=== PATIENT | female | born 1950 | race Caucasian/White ===

== ENCOUNTER 2019-07-01 12:12 | Emergency (ER) | payer MEDICARE, SELFPAY ==
[2019-07-01] VITALS (38 sets, daily range): BP systolic 162–201; BP diastolic 57–94; PULSE 59–79; RESP 13–26; TEMP 36.5; O2SAT 96–100
--- NOTE | ~2019-07-01 | XR_ITS ---
EXAMINATION: XR chest 2V DATE: 07/01/2019 12:45 INDICATION: Shortness of breath. TECHNIQUE: Frontal and lateral views of the chest were obtained. COMPARISON: Chest single view 02/20/2019, chest CT 11/30/2018 FINDINGS: There is a moderate-sized right pleural effusion. There is a small left pleural effusion. T here are airspace opacities in the perihilar regions and at the lung bases. No pneumothorax. Cardiome david is noted. IMPRESSION: 1. Airspace opacities in the perihilar regions and at the lung bases with improvement on the left, li dyaln atelectasis. Pneumonia cannot be excluded. 2. Moderate-sized right pleural effusion and small left pleural effusion with improvement on the left . 3. Cardiomegaly. Reviewed, dictated and finalized at location A. IMPRESSION: 1. Airspace opacities in the perihilar regions and at the lung bases with impro vement on the left, likely atelectasis. Pneumonia cannot be excluded. 2. Moderate-sized right pleural effusion and small left pleural effusion with i mprovement on the left. 3. Cardiomegaly.
--- NOTE | 2019-07-01 12:26 | ECG_ITS ---
Measurements Intervals [place] Rate: 66 P: 16 [place]: 160 QRS: -23 QRSD: 102 T: 55 QT: 397 QTc: 417 Interpretive Statements SINUS RHYTHM ANTEROSEPTAL INFARCT, AGE INDETERMINATE BORDERLINE ST ABNORMALITY- LATERAL LEADS ABNORMAL ECG Electronically Signed On 07-01-2019 13:22:03 CDT by Tahir Alexander D.O.
[2019-07-01 12:51] LABS: Basophils Percent Auto 0.3 % (0.2-1.2); Eosinophils Absolute Auto 0.4 K/mm3 (0-0.3); Eosinophils Percent Auto 4.2 % (0-4.4); Hematocrit 24.7 % (37.0-47.0); Hemoglobin 7.8 g/dL (12.0-15.0); Immature Granulocyte Absolute 0.03 K/mm3 (0.00-0.031); Immature Granulocyte Percent A 0.3 % (0-0.5); Lymphocytes Absolute Auto 0.87 K/mm3 (0.9-3.2); Mean Corpuscular HGB Conc 31.6 g/dl (32-36); Mean Corpuscular Hemoglobin 30.7 pg (26-34); Mean Corpuscular Volume 97.2 fl (80-100); Mean Platelet Volume 8.7 fl (7.4-10.4); Monocytes Absolute Auto 0.7 K/mm3 (0.1-0.6); Monocytes Percent Auto 8.1 % (2.6-8.5); Neutrophils Absolute Auto 6.7 K/mm3 (1.3-6.7); Neutrophils Percent Auto 77.1 % (45.5-73.1); Platelet Count Result 250 k/mm3 (150-375); Red Blood Count 2.54 M/mm3 (4.2-5.4); Red Cell Distribution Width 14.7 % (11.5-14.5); White Blood Count 8.7 K/mm3 (4.5-10.0)
[2019-07-01 13:03] LABS: Blood Urea Nitrogen 77 mg/dL (7-17); Carbon Dioxide 18 mmol/L (22-30); Chloride 111 mmol/L (98-107); Estimated CRCL calculation 13 ml/min; Estimated Glomerular Filt Rate 10; Glucose 95 mg/dL (65-105); Potassium 5.5 mmol/L (3.4-5.0); Sodium 137 mmol/L (137-145)
[2019-07-01 13:04] LABS: Prothrombin Time 13.2 Seconds (11.1-14.7)
[2019-07-01 13:05] LABS: Partial Thromboplastin Time 33.2 SECONDS (22.3-36.8)
[2019-07-01 13:15] LABS: NT Pro B Type Natriuretic Pept 7500 PG/ML (5-100); Troponin I < 0.012 ng/mL (0.000-0.034)
--- NOTE | 2019-07-01 14:32 | ED.SOB ---
HPI - SOB/Dyspnea General Chief Complaint: Shortness of Breath/Dyspnea Stated Complaint: SOB Time Seen by Provider: 07/01/19 12:17 History of Present Illness HPI Narrative: Patient is a 68-year-old female who presents ER with progressive shortness of breath. Worsening over the last couple weeks. Associated with a 30 pound weight gain. Patient has CKD and sees Dr. Chowdary. They have been modifying her home medications to decrease potassium buildup. Additionally patient has history of CHF and also has history of oxygen dependent COPD and wears 3 L at baseline. She has had no increase in her oxygen necessity. No orthopnea/wheezing/fever/productive cough. No chest pain or chest pressure. Related Data Home Medications Medication Instructions Recorded Confirmed Lantus U-100 Insulin 8 unit SUBCUT HS 02/20/19 05/16/19 albuterol sulfate 2 inh INHALATION QID PRN 02/20/19 05/16/19 aspirin 325 mg PO DAILY 02/20/19 05/16/19 atorvastatin 20 mg PO HS 02/20/19 05/16/19 carvedilol 25 mg PO BID 02/20/19 05/16/19 cholecalciferol (vitamin D3) 2,000 unit PO DAILY 02/20/19 05/16/19 ferrous sulfate 325 mg PO DAILY 02/20/19 05/16/19 folic acid 1 mg PO DAILY 02/20/19 05/16/19 acetaminophen 325 mg capsule 325 mg PO Q6H PRN 05/16/19 05/16/19 ciprofloxacin HCl 07/01/19 diltiazem HCl [Cartia XT] PO 07/01/19 fluticasone propionate INTRANASAL 07/01/19 olopatadine 07/01/19 ondansetron HCl 07/01/19 sevelamer carbonate [Renvela] 07/01/19 Allergies Allergy/AdvReac Type Severity Reaction Status Date / Time hydromorphone Allergy Unknown Unknown Verified 07/01/19 12:25 meperidine Allergy Unknown Nausea Verified 07/01/19 12:25 Review of Systems Review of Systems: All systems reviewed & are unremarkable except as noted in HPI and below Constitutional: Constitutional: Denies chills, Reports fatigue, Denies fever(s) and Reports weakness ENT: Denies nasal congestion and Denies sore throat Cardiovascular: Cardiovascular: Denies chest pain, Denies rapid heart rate and Denies radiating jaw, neck or arm pain Respiratory: Respiratory: Denies chest congestion, Denies cough, Reports dyspnea and Denies wheezing Gastrointestinal: Gastrointestinal: Denies abdominal pain, Denies nausea and Denies vomiting [facility] Past Medical History Medical History (Updated 07/01/19 @ 16:41 by Saturnino Juarez MD) Arthritis CHF (congestive heart failure) Diabetes mellitus DVT (deep venous thrombosis) Fracture HLD (hyperlipidemia) HTN (hypertension) Hypoglycemic coma IBS (irritable bowel syndrome) Kidney stone On home oxygen therapy Peripheral neuropathy Pulmonary embolism Rectal polyp Renal disease Surgical History Surgical History H/O: hysterectomy History of History of cataract surgery Social History Social History Smoking status: Never smoker Alcohol intake: never Substance use: never Substance use type: does not use Gender identity (if verbalized by the patient): Female Spiritual care concerns: No Exam Narrative: Exam Narrative: GENERAL: Chronically ill-appearing, obese, and in no acute distress. HEAD: Normocephalic, atraumatic. ENT: Nares clear, no rhinorrhea or epistaxis. Mucous membranes moist. NECK: Supple. CHEST: Clear to auscultation. No respiratory distress. HEART: Regular rate and rhythm. Normal peripheral pulses. ABDOMEN: Soft, nontender, nondistended. EXTREMITIES: Normal range of motion. No edema. Chronic lower extremity venous stasis changes. SKIN: Warm, dry, no rash. NEURO: Alert and oriented x3. PSYCH: Normal mood and affect. Course Course Emergency Course: Patient has been ambulatory without hypoxia while wearing her home oxygen. BNP appears elevated but not as elevated as it has been in the past. There is no pulmonary edema on chest x-ray. Patient's renal function seems to be worsening and her potassium is i
--- NOTE | 2019-07-01 15:02 | PC.NURSE ---
Pt did walk test with O2 at 3L/n.c and O2 went from 99% to 93%. MD Juarez aware
[2019-07-01] MEDS: SODIUM POLYSTYRENE SULFONONATE 15 GM/60 ML BTL PO (16:42)
--- NOTE | 2019-07-01 20:56 | PC.NURSE ---
S/[facility] Patient Access....bed available...Rm 216 @ [facility]
--- NOTE | 2019-07-01 23:40 | PC.NURSE ---
EMS arrived to transfer Pt to [facility], thorough report was given at 2335.
== END 2019-07-01 21:50 | disposition short-term general hospital (02) ==
PROVIDERS: Emergency Provider Emergency Medicine
DX: N17.9 Acute kidney failure, unspecified (principal); E11.22 Type 2 diabetes mellitus with diabetic chronic kidney disease; I13.0 Hypertensive heart and chronic kidney disease with heart failure and stage 1 through stage 4 chronic kidney disease, or unspecified chronic kidney disease; N18.9 Chronic kidney disease, unspecified; M19.90 Unspecified osteoarthritis, unspecified site; E78.5 Hyperlipidemia, unspecified; K58.9 Irritable bowel syndrome, unspecified; Z99.81 Dependence on supplemental oxygen; E11.42 Type 2 diabetes mellitus with diabetic polyneuropathy; Z86.711 Personal history of pulmonary embolism; Z86.718 Personal history of other venous thrombosis and embolism; Z87.19 Personal history of other diseases of the digestive system; Z98.49 Cataract extraction status, unspecified eye; R91.8 Other nonspecific abnormal finding of lung field; I51.7 Cardiomegaly; Z79.4 Long term (current) use of insulin; Z79.82 Long term (current) use of aspirin
CPT/HCPCS: 36415; 71046; 80048; 83880; 84484; 85025; 85610; 85730; 93005; 99285; A9270

== ENCOUNTER 2020-02-14 13:35 | Outpatient (CLI) | payer MEDICARE, SELFPAY ==
--- NOTE | 2020-02-14 14:06 | ECHO_ITS ---
Patient Info Name: Pennie Buckley Age: 69 years : 1950 Gender: Female Ht: 63 in Wt: 236 lbs BSA: 2.24 m2 HR: 66 bpm BP: 149 / 77 mmHg Technical Quality: Good Exam Date: 02/14/2020 2:46 PM Exam Location: [facility] Patient Status: Outpatient Admit Date: 02/14/2020 Staff Ordering Physician: Tahir Alexander DO Magnetic Prospector: Manjinder Smyth RDCS, RT Attending Provider: Tahir Alexander DO Referring Physician: Benjamin DANG; Exam Type: CA echo doppler color flow Study Info Indications I50.9 - Heart failure, unspecified Complete two-dimensional, color flow and Doppler transthoracic echocardiogram is performed. Summary 1. Complete two-dimensional, color flow and Doppler transthoracic echocardiogram is performed. 2. Left ventricular chamber dimension is normal. 3. Left ventricular systolic function is normal, estimated at 50-55%. 4. There is moderately increased left ventricular wall thickness. 5. The left ventricular diastolic function is grade I diastolic dysfunction. 6. E/e' 14 is mildly elevated. 7. Left atrial chamber dimension is moderately enlarged. 8. There is mild aortic valve sclerosis. 9. The mitral valve has moderately calcified annulus. 10. Calcification of chordae tendinae of posterior mitral valve. 11. There is small circumferential pericardial effusion. Left Ventricle E/e' 14 is mildly elevated. Left ventricular chamber dimension is normal. Left ventricular systolic function is normal, estimated at 50-55%. There is moderately increased left ventricular wall thickness. The left ventricular diastolic function is grade I diastolic dysfunction. Right Ventricle Right ventricular chamber dimension is normal. Right ventricular systolic function is normal. Left Atria Left atrial chamber dimension is moderately enlarged. Right Atria Right atrial chamber dimension is normal. Aortic Valve The aortic valve is trileaflet. There is mild aortic valve sclerosis. There is no aortic valve stenosis. There is no aortic valve regurgitation. Pulmonic Valve There is no pulmonic regurgitation. Mitral Valve The mitral valve has moderately calcified annulus. Calcification of chordae tendinae of posterior mitral valve. There is no mitral valve stenosis. There is no mitral valve regurgitation. Tricuspid Valve There is no tricuspid valve regurgitation. Pericardium/Pleural There is small circumferential pericardial effusion. Inferior Vena Cava Normal inferior vena cava with >50% collapse upon inspiration consistent with normal right atrial pressure, 5 mmHg. Aorta The aortic root size at the sinus of Valsalva is normal. Left Ventricular Outflow Tract Name Value Normal LVOT 2D LVOT Diameter 2.1 cm LVOT Doppler LVOT Peak Gradient 5 mmHg LVOT Mean Gradient 2 mmHg LVOT VTI 23 cm LVOT VTI/AV VTI Ratio 0.7 LVOT Stroke Volume 82 ml Mitral Valve Name
== END 2020-02-14 13:36 | disposition home or self-care (01) ==
PROVIDERS: PCP Nurse Practitioner Family; Visit Provider Internal Medicine Cardiovascular Disease
DX: I50.9 Heart failure, unspecified (principal); I51.7 Cardiomegaly; I35.8 Other nonrheumatic aortic valve disorders; I31.3 Pericardial effusion (noninflammatory)
CPT/HCPCS: 93306

== ENCOUNTER → 2020-10-16 13:30 | Outpatient (CLI) | payer MEDICARE, SELFPAY ==
--- NOTE | ~2020-10-16 | MM_ITS ---
EXAMINATION: MM screening [facility] BI w carlos HISTORY: Screening TECHNIQUE: Craniocaudal and mediolateral oblique 3-D tomosynthesis images were obtained and synthetic 2-D images were generated. CAD analysis was submitted and interpreted. COMPARISON: Comparison to multiple prior studies sequentially, with oldest reviewed study dated 02/04. BREAST PARENCHYMAL COMPOSITION: There are scattered areas of fibroglandular density. FINDINGS: There is no evidence of suspicious mass, calcification, or architectural distortion to sugg est malignancy in either breast. There has been no suspicious interval change. IMPRESSION: 1. No mammographic evidence of malignancy. 2. Recommend routine screening mammography in one year. BI-RADS Category 1: Negative Reviewed, dictated and finalized at location A.
== END ==
PROVIDERS: PCP Nurse Practitioner Family; Visit Provider Nurse Practitioner Family
DX: Z12.31 Encounter for screening mammogram for malignant neoplasm of breast (principal)
CPT/HCPCS: 77063; 77067

== ENCOUNTER 2021-09-17 11:45 | Outpatient (CLI) | payer MEDICARE, SELFPAY ==
--- NOTE | 2021-09-17 12:01 | ECHO_ITS ---
Patient Info Name: Pennie Buckley Age: 70 years : 1950 Gender: Female Ht: 63 in Wt: 240 lbs BSA: 2.26 m2 HR: 76 bpm BP: 158 / 82 mmHg Technical Quality: Good Exam Date: 09/17/2021 12:29 PM Exam Location: [facility] Patient Status: Outpatient Admit Date: 09/17/2021 Staff Ordering Physician: Tahir Alexander DO Invasive Cardiologist: Linda Dick RDCS Attending Provider: Tahir Alexander DO Referring Physician: Benjamin DANG; Exam Type: CA echo doppler color flow Study Info Indications I50.9 - Heart failure, unspecified Complete two-dimensional, color flow and Doppler transthoracic echocardiogram is performed. Summary 1. Complete two-dimensional, color flow and Doppler transthoracic echocardiogram is performed. 2. Left ventricular chamber dimension is normal. 3. Left ventricular systolic function is normal, estimated at 55-60%. 4. There is mildly increased left ventricular wall thickness. 5. The left ventricular diastolic function is grade I diastolic dysfunction. 6. E/e' 22 is elevated. 7. Global longitudinal strain is abnormal at -15.3%. 8. Left atrial chamber dimension is severely enlarged. 9. Right atrial chamber dimension is mildly enlarged. 10. The mitral valve has moderately calcified annulus. 11. There is trace tricuspid valve regurgitation. 12. Mild pulmonary hypertension, estimated pulmonary arterial systolic pressure is 41 mmHg. Left Ventricle E/e' 22 is elevated. Global longitudinal strain is abnormal at -15.3%. Left ventricular chamber dimension is normal. Left ventricular systolic function is normal, estimated at 55-60%. There is mildly increased left ventricular wall thickness. The left ventricular diastolic function is grade I diastolic dysfunction. Right Ventricle Right ventricular systolic function is normal and with normal TAPSE 2.8 cm. Right ventricular chamber dimension is normal. Left Atria Left atrial chamber dimension is severely enlarged. Right Atria Right atrial chamber dimension is mildly enlarged. Aortic Valve The aortic valve is trileaflet. There is no aortic valve stenosis. There is no aortic valve regurgitation. Pulmonic Valve There is no pulmonic regurgitation. Mitral Valve The mitral valve has moderately calcified annulus. There is no mitral valve stenosis. There is no mitral valve regurgitation. Tricuspid Valve There is trace tricuspid valve regurgitation. Mild pulmonary hypertension, estimated pulmonary arterial systolic pressure is 41 mmHg. Pericardium/Pleural There is no pericardial effusion. Inferior Vena Cava Normal inferior vena cava with >50% collapse upon inspiration consistent with normal right atrial pressure, 5 mmHg. Aorta The aortic root size at the sinus of Valsalva is normal. Left Ventricular Outflow Tract Name Value Normal LVOT 2D LVOT Diameter 2.0 cm LVOT Doppler LVOT Peak Gradient 7 mmHg LVOT Mean Gradient 4 mmHg LVOT VTI 32 cm LVOT VTI/AV VTI Ratio 0.8 LVOT Stroke Volume
== END 2021-09-17 11:46 | disposition home or self-care (01) ==
LOC: ANHCARD 11:47
PROVIDERS: PCP Nurse Practitioner Family; Visit Provider Internal Medicine Cardiovascular Disease
DX: I50.9 Heart failure, unspecified (principal); I27.20 Pulmonary hypertension, unspecified; R93.1 Abnormal findings on diagnostic imaging of heart and coronary circulation
CPT/HCPCS: 93306

== ENCOUNTER 2021-10-18 09:57 | Inpatient (IN) | payer MEDICARE, SELFPAY ==
[2021-10-18] VITALS (46 sets, daily range): BP systolic 95–173; BP diastolic 44–84; PULSE 65–97; RESP 17–32; TEMP 35.5–36.6; O2SAT 90–100; BMI 39.1
--- NOTE | 2021-10-18 | ECHO_ITS ---
Patient Info Name: Pennie Buckley Age: 71 years : 1950 Gender: Female Ht: 66 in Wt: 242 lbs BSA: 2.31 m2 HR: 68 bpm BP: 129 / 59 mmHg Technical Quality: Fair Exam Date: 10/18/2021 2:15 PM Exam Location: [facility] Patient Status: Inpatient Admit Date: 10/18/2021 Staff Ordering Physician: Tahir Alexander DO Loan Servicing Specialist: Octavia Avila RDCS Attending Provider: Virgilio Lei MD Referring Physician: Benjamin DANG; Exam Type: CA echo doppler color flow Study Info Indications I46.9 - Cardiac arrest, cause unspecified Complete two-dimensional, color flow and Doppler transthoracic echocardiogram is performed. Summary 1. Complete two-dimensional, color flow and Doppler transthoracic echocardiogram is performed. 2. Left ventricular chamber dimension is mildly enlarged. 3. Left ventricular systolic function is normal, estimated at 60-65%. 4. There is mildly increased left ventricular wall thickness. 5. The left ventricular diastolic function is abnormal. 6. E/e' 33 is significantly elevated. 7. Global longitudinal strain is abnormal at -14.4%. 8. Left atrial chamber dimension is severely enlarged. 9. There is mild aortic valve sclerosis. 10. The mitral valve has moderately calcified leaflets and moderately calcified annulus. 11. There is mild mitral valve regurgitation. 12. There is trace tricuspid valve regurgitation. 13. Severe pulmonary hypertension, estimated pulmonary arterial systolic pressure is 61 mmHg. 14. There is trace pulmonic regurgitation. 15. Dilated inferior vena cava with >50% collapse upon inspiration consistent with elevated right atrial pressure, 10 mmHg. Left Ventricle E/e' 33 is significantly elevated. Global longitudinal strain is abnormal at -14.4%. Left ventricular chamber dimension is mildly enlarged. Left ventricular systolic function is normal, estimated at 60-65%. There is mildly increased left ventricular wall thickness. The left ventricular diastolic function is abnormal. Right Ventricle Right ventricular systolic function is normal and with normal TAPSE 2.7 cm. Right ventricular chamber dimension is normal. Left Atria Left atrial chamber dimension is severely enlarged. Right Atria Right atrial chamber dimension is normal. Aortic Valve The aortic valve is trileaflet. There is mild aortic valve sclerosis. There is no aortic valve stenosis. There is no aortic valve regurgitation. Pulmonic Valve There is trace pulmonic regurgitation. Mitral Valve The mitral valve has moderately calcified leaflets and moderately calcified annulus. There is no mitral valve stenosis. There is mild mitral valve regurgitation. Tricuspid Valve There is trace tricuspid valve regurgitation. Severe pulmonary hypertension, estimated pulmonary arterial systolic pressure is 61 mmHg. Pericardium/Pleural There is no pericardial effusion. Inferior Vena Cava Dilated inferior vena cava with >50% collapse upon inspiration consistent with elevated right atrial pressure, 10 mmHg. Aorta The aortic root size at the sinus of Valsalva is normal. Left Ventricular Outflow Tract Name Value Normal LVOT 2D LVOT Diameter 2.0 cm LVOT Doppler
--- NOTE | ~2021-10-18 | US_ITS ---
EXAMINATION: US perc cholecystostomy w imag DATE: 10/23/2021 13:42 INDICATION: Acute cholecystitis. TECHNIQUE: The procedure including the risks, benefits, and alternatives was discussed with the patie nt's daughter Risks discussed included bleeding and infection. Oral consent was obtained over the iva ne. A timeout was performed to verify the patient's name, date of , and procedure to be perfo rmed. The patient was confirmed to be receiving appropriate antibiotic coverage. The skin overlying the liver and gallbladder was prepped and draped in usual sterile fashion. Anesthetic was administer ed with 1% lidocaine subcutaneously. An 8.5 Fr catheter was inserted into the gallbladder by trocar technique. The metal stiffener and trocar needle were removed, and the pigtail tip was locked. Bile w as aspirated and sent for culture. The catheter was stitched to the skin with suture. There were no i mmediate complications. FINDINGS: Ultrasound images demonstrate the catheter within the gallbladder. 8 mL bile was aspirated. IMPRESSION: 1. Successful ultrasound-guided cholecystostomy tube placement. 2. 8 mL brown, opaque bile was sent for aerobic and anaerobic cultures. 3. The catheter will be managed by Dr. Jolly. A catheter cholangiogram may be performed not less than 48 hours after tube placement if clinically indicated to assess cystic duct patency. If cholecystecto my is not eventually performed and the infectious episode has resolved, the tube may be removed over a guidewire, preferably not less than 3 weeks after placement to allow time for a mature catheter tra ct to form to prevent bile leakage and peritonitis. Reviewed, dictated and finalized at location A. IMPRESSION: 1. Successful ultrasound-guided cholecystostomy tube placement. 2. 8 mL brown, opaque bile was sent for aerobic and anaerobic cultures. 3. The catheter will be managed by Dr. Jolly. A catheter cholangiogram may be pe rformed not less than 48 hours after tube placement if clinically indicated to assess cystic duct patency. If cholecystectomy is not eventually performed and the infectious episode has resolved, the tube may be removed over a guidewire, preferably not less than 3 weeks after placement to allow time for a mature cat heter tract to form to prevent bile leakage and peritonitis.
--- NOTE | ~2021-10-18 | XR_ITS ---
EXAMINATION: XR chest 1V portable DATE: 10/28/2021 05:27 INDICATION: Acute respiratory failure. TECHNIQUE: A single frontal view of the chest was obtained. COMPARISON: Chest single view 10/27/2021 FINDINGS: There are airspace opacities in the mid and lower lung zones, right worse than left. There is a small right pleural effusion. No pneumothorax. Cardiomegaly is noted. The endotracheal tube tip is 3.2 cm above the angy. The nasogastric tube tip is beyond the inferior margin of the radiograph, but at least to the stomach. IMPRESSION: 1. Airspace opacities in the mid and lower lung zones with worsening on the right, consistent with pn eumonia. 2. Small right pleural effusion. 3. Cardiomegaly. Reviewed, dictated and finalized at location A. IMPRESSION: 1. Airspace opacities in the mid and lower lung zones with worsening on the rig ht, consistent with pneumonia. 2. Small right pleural effusion. 3. Cardiomegaly.
--- NOTE | ~2021-10-18 | XR_ITS ---
EXAMINATION: XR chest 1V portable DATE: 10/20/2021 05:58 INDICATION: Respiratory failure TECHNIQUE: frontal view of the chest was obtained. COMPARISON: Chest radiograph dated 10/19/2021 FINDINGS: Endotracheal tube tip 2.7 cm above the angy. Nasogastric tube extends below the left hemidiaphragm with distal tip collimated off the study. Persistent opacities in the bilateral mid and lower lung zones. Small right pleural effusion. No pneu mothorax. Cardiomegaly. IMPRESSION: 1. Persistent opacities in the bilateral mid and lower lung zones consistent with atelectasis, pneumo susi, pulmonary edema or some combination thereof. 2. Small right pleural effusion. 3. Cardiomegaly. Reviewed, dictated and finalized at location A. IMPRESSION: 1. Persistent opacities in the bilateral mid and lower lung zones consistent wi th atelectasis, pneumonia, pulmonary edema or some combination thereof. 2. Small right pleural effusion. 3. Cardiomegaly.
--- NOTE | ~2021-10-18 | XR_ITS ---
EXAMINATION: XR chest 1V portable DATE: 10/26/2021 05:47 INDICATION: Acute respiratory failure. TECHNIQUE: A single frontal view of the chest was obtained. COMPARISON: Chest single view 10/25/2021, chest CT 10/21/2021 FINDINGS: There is a diffuse interstitial pattern in the lungs. There is a small right pleural effusi on. No pneumothorax. Cardiomegaly is noted. The endotracheal tube tip is 3.9 cm above the angy. The nasogastric tube tip is beyond the inferior margin of the radiograph, but at least to the stomach. IMPRESSION: 1. Improved mild diffuse lung disease, consistent with pulmonary edema versus pneumonia. 2. Stable small right pleural effusion. 3. Cardiomegaly. Reviewed, dictated and finalized at location A. IMPRESSION: 1. Improved mild diffuse lung disease, consistent with pulmonary edema versus p neumonia. 2. Stable small right pleural effusion. 3. Cardiomegaly.
--- NOTE | ~2021-10-18 | XR_ITS ---
EXAM: XR abdomen NG/feed tube insert DATE: 10/26/2021 16:31 HISTORY: Verification of NG Placement . COMPARISON: 10/22/2021. FINDINGS: NG tube tip and side port terminating over the stomach. Interval removal of a biliary sten t. Incompletely visualized right abdominal pigtail drain. Possibly of bowel gas. IMPRESSION: NG tube, in good position. Reviewed, dictated and finalized at location K. IMPRESSION: NG tube, in good position.
--- NOTE | ~2021-10-18 | CT_ITS ---
EXAMINATION: CTA brain carotid DATE: 10/19/2021 15:19 INDICATION: Right frontoparietal stroke. TECHNIQUE: Computed tomographic angiography (CTA) of the head was performed without and with 100 mL O mnipaque-350 intravenous contrast. CTA of the neck was performed with intravenous contrast. Automated exposure control and iterative reconstruction technique were employed. The dose-length product was 1 800.65 mGy-cm. Maximum intensity projection and volume rendered 3D-reconstructions were created by radha silverman technologist on a separate workstation. COMPARISON: Head CT 10/18/2021 FINDINGS: HEAD CTA: There is an old infarct involving the right basal ganglia and adjacent white matter. Again seen is an infarct in left occipital lobe. There are scattered areas of low attenuation in the cerebr al white matter. There is no intracranial hemorrhage, acute infarction, or abnormal intracranial mass lesion. There is ex vacuo dilatation of frontal horn of right lateral ventricle. The paranasal sinus es are clear. There are likely changes of ocular lens replacement surgeries. The mastoid air cells ar e normal. The vertebral arteries are codominant. There is no significant stenosis of basilar artery o r the posterior cerebral arteries. The posterior communicating arteries are normal. There is no signi ficant stenosis of the intracranial internal carotid arteries or anterior or middle cerebral arteries . Anterior communicating artery is normal. There is no aneurysm. NECK CTA: There are moderate-sized right and small left pleural effusions. There are patchy airspace and groundglass opacities in the visualized portions of the lungs bilaterally. The endotracheal tube tip is in expected position above the angy. The nasogastric tube tip is not included. There are nod ules in the thyroid measuring up to 15 mm. There is mild mediastinal lymphadenopathy. There is no sig nificant stenosis of the vertebral arteries. There is plaque in the proximal internal carotid arterie s. There is 0% stenosis of the proximal right internal carotid artery relative to normal distal arter y lumen diameter (NASCET criteria). There is 0% stenosis of the proximal left internal carotid artery relative to normal distal artery lumen diameter. There is mild cervicothoracic spondylosis. IMPRESSION: 1. Stable age-indeterminate infarct in left occipital lobe. 2. 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 3. Moderate nonspecific cerebral white matter disease, which likely represents chronic small vessel i schemic disease. 4. No aneurysm or significant intracranial arterial stenosis. 5. 0% stenosis of the proximal internal carotid arteries relative to normal distal artery lumen diame ters (NASCET criteria). 6. Moderate-sized right and small left pleural effusions. 7. Diffuse lung disease, consistent with pulmonary edema versus pneumonia. 8. Mild mediastinal lymphadenopathy, likely reactive. 9. Multinodular goiter. Consider outpatient follow-up evaluation with ultrasound if clinically indica briana given the patient's comorbidities. Reviewed, dictated and finalized at location A. IMPRESSION: 1. Stable age-indeterminate infarct in left occipital lobe. 2. 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 3. Moderate nonspecific cerebral white matter disease, which likely represents chronic small vessel ischemic disease. 4. No aneurysm or significant intracranial arterial stenosis. 5. 0% stenosis of the proximal internal carotid arteries relative to normal dis yarely artery lumen diameters (NASCET criteria). 6. Moderate-sized right and small left pleural effusions. 7. Diffuse lung disease, consistent with pulmonary edema versus pneumonia. 8. Mild mediastinal lymphadenopathy, likely reactive. 9
--- NOTE | ~2021-10-18 | CT_ITS ---
EXAMINATION: CT brain wo con INDICATION: Metabolic encephalopathy, posturing status post cardiac arrest COMPARISON: 09/05/2018 TECHNIQUE: Standard unenhanced head CT. The dose-length product (DLP) was 605.33 mGy-cm. The mA was a djusted according to patient size. Iterative reconstruction technique was employed. FINDINGS: There is no acute intraparenchymal hemorrhage. No evidence of mass lesion. There is a possi ble small infarct in the left posterior parietal region. There are chronic infarcts in the right harry ventricular frontal lobe and in the left basal ganglia. There is mild periventricular and subcortical hypodensity probably related to small vessel ischemic disease. There is mild prominence of the sulci and ventricles related to cerebral atrophy. Intracranial calcified cerebral atherosclerosis is noted . There are no extra-axial collections. There is no mass effect or midline shift. Changes in the glob es are likely from ocular lens surgery. The visualized sinuses and mastoid air cells are well aerated . IMPRESSION: 1. Possible small acute infarct in the posterior left parietal lobe. 2. Age related findings. Reviewed, dictated and finalized at location A.
--- NOTE | ~2021-10-18 | XR_ITS ---
EXAMINATION: XR chest 1V portable DATE: 10/27/2021 05:42 INDICATION: Acute respiratory failure. TECHNIQUE: A single frontal view of the chest was obtained. COMPARISON: Chest single view 10/26/2021, chest CT 10/21/2021 FINDINGS: There are airspace opacities in right mid and lower lung zones and all left lung zones with a perihilar and lower lung predominance. No pleural effusion or pneumothorax. Cardiomegaly is noted. The endotracheal tube tip is 3.5 cm above the angy. The nasogastric tube tip is beyond the inferio r margin of the radiograph, but at least to the stomach. IMPRESSION: 1. Worsened diffuse lung disease, consistent with pulmonary edema versus pneumonia. 2. Cardiomegaly. Reviewed, dictated and finalized at location A. IMPRESSION: 1. Worsened diffuse lung disease, consistent with pulmonary edema versus pneumo susi. 2. Cardiomegaly.
--- NOTE | ~2021-10-18 | XR_ITS ---
EXAMINATION: XR chest 1V portable DATE: 10/22/2021 05:25 INDICATION: Respiratory failure TECHNIQUE: frontal view of the chest was obtained. COMPARISON: Chest radiograph and CT dated 10/21/2021 FINDINGS: Endotracheal tube tip 3.8 cm above the angy. Nasogastric tube extends below the left hemidiaphragm with distal tip collimated off the study. There is been some interval increase in the patchy airspace opacities throughout both lungs. Small bi lateral pleural effusions. No pneumothorax. Cardiomegaly. IMPRESSION: 1. Worsening patchy bilateral lung disease which could represent pulmonary edema and/or pneumonia. 2. Small bilateral pleural effusions. 3. Cardiomegaly. Reviewed, dictated and finalized at location A. IMPRESSION: 1. Worsening patchy bilateral lung disease which could represent pulmonary tracy a and/or pneumonia. 2. Small bilateral pleural effusions. 3. Cardiomegaly.
--- NOTE | ~2021-10-18 | XR_ITS ---
EXAMINATION: XR chest 1V portable DATE: 10/21/2021 05:31 INDICATION: Respiratory failure TECHNIQUE: frontal view of the chest was obtained. COMPARISON: Chest radiograph dated 10/20/2021 FINDINGS: Endotracheal tube tip 3.2 cm above the angy. Nasogastric tube extends below the left hemidiaphragm with distal tip collimated off the study. Persistent basilar predominant diffuse. Patchy bilateral lung disease relatively sparing the apices. The small right pleural effusion. No pneumothorax. Cardiomegaly. IMPRESSION: 1. Persistent diffuse patchy bilateral lung disease which could represent pneumonia, pulmonary edema or some combination thereof. 2. Small right pleural effusion. 3. Cardiomegaly. Reviewed, dictated and finalized at location A. IMPRESSION: 1. Persistent diffuse patchy bilateral lung disease which could represent pneum onia, pulmonary edema or some combination thereof. 2. Small right pleural effusion. 3. Cardiomegaly.
--- NOTE | ~2021-10-18 | XR_ITS ---
EXAMINATION: XR abdomen NG/feed tube insert DATE: 10/22/2021 14:57 INDICATION: Vomiting. TECHNIQUE: A supine view of the abdomen was obtained. COMPARISON: CT abdomen and pelvis 10/21/2021 FINDINGS: The lower abdomen is excluded. There are no dilated loops of bowel. The nasogastric tube ti p is in the stomach. There is a biliary stent in expected position. There is a small right pleural ef fusion. There are airspace opacities in the visualized portions of the lower lung zones, consistent w ith pulmonary edema versus pneumonia. Cardiomegaly is noted. IMPRESSION: 1. Nasogastric tube tip in the stomach. 2. Small right pleural effusion. 3. Persistent airspace opacities in the visualized portions of the lower lung zones, consistent with pulmonary edema versus pneumonia. 4. Cardiomegaly. Reviewed, dictated and finalized at location A. IMPRESSION: 1. Nasogastric tube tip in the stomach. 2. Small right pleural effusion. 3. Persistent airspace opacities in the visualized portions of the lower lung z ones, consistent with pulmonary edema versus pneumonia. 4. Cardiomegaly.
--- NOTE | ~2021-10-18 | XR_ITS ---
EXAMINATION: XR chest 1V portable Exam Date/Time: 10/26/2021 18:10 CDT HISTORY: shortness of breath Comparison: Same date at 5:29 AM. RESULT: Lines, tubes, and devices: Stable endotracheal and nasogastric tubes, in good position. Lungs and pleura: Unchanged reticular opacities and/or senescent change, with minimal right costophr enic angle blunting. Cardiomediastinal silhouette: Stable. Other: No acute osseous or upper abdominal finding. IMPRESSION: Lines and tubes as above. Pulmonary opacities are unchanged, likely representing interstitial edema o verlying senescent changes, infection not excluded. Small right pleural effusion. Reviewed, dictated and finalized at location K. IMPRESSION: Lines and tubes as above. Pulmonary opacities are unchanged, likely representin g interstitial edema overlying senescent changes, infection not excluded. Small right pleural effusion.
--- NOTE | ~2021-10-18 | XR_ITS ---
EXAMINATION: XR chest 1V portable DATE: 10/23/2021 04:52 INDICATION: Respiratory failure. TECHNIQUE: A single frontal view of the chest was obtained. COMPARISON: Chest single view 10/22/2021, chest CT 10/21/2021 FINDINGS: There are airspace opacities in all lung zones bilaterally. There is a small right pleural effusion. No pneumothorax. Cardiomegaly is noted. The endotracheal tube tip is 4.5 cm above the daphnie a. The nasogastric tube tip is in the stomach. There is a biliary stent in expected position. IMPRESSION: 1. Stable diffuse lung disease, consistent with pulmonary edema versus pneumonia. 2. Stable small right pleural effusion. 3. Cardiomegaly. Reviewed, dictated and finalized at location A. IMPRESSION: 1. Stable diffuse lung disease, consistent with pulmonary edema versus pneumoni a. 2. Stable small right pleural effusion. 3. Cardiomegaly.
--- NOTE | ~2021-10-18 | XR_ITS ---
EXAMINATION: XR chest 1V portable DATE: 10/19/2021 06:23 INDICATION: Respiratory failure TECHNIQUE: frontal view of the chest was obtained. COMPARISON: Chest radiograph dated 10/18/2021 FINDINGS: Endotracheal tube tip 3.7 cm above the angy. Nasogastric tube extends into the stomach with distal tip collimated beyond the inferior margin of the [id number]. Evaluation mildly limited by combination patient body habitus and superimposed material external to t he patient. Interval decrease in diffuse bilateral airspace opacities with lower lung predominance. D ecreased small right pleural effusion. No pneumothorax. Cardiomegaly. IMPRESSION: 1. Interval improvement in opacities in the basilar predominant bilateral airspace opacities which co uld represent atelectasis, pneumonia, pulmonary edema or some combination thereof. 2. Decreased small right pleural effusion. 3. Cardiomegaly. Reviewed, dictated and finalized at location A. IMPRESSION: 1. Interval improvement in opacities in the basilar predominant bilateral airsp norma opacities which could represent atelectasis, pneumonia, pulmonary edema or some combination thereof. 2. Decreased small right pleural effusion. 3. Cardiomegaly.
--- NOTE | ~2021-10-18 | XR_ITS ---
EXAMINATION: XR chest 1V portable DATE: 10/25/2021 05:50 INDICATION: Acute respiratory failure. TECHNIQUE: A single frontal view of the chest was obtained. COMPARISON: Chest single view 10/23/2021 FINDINGS: The patient is rotated to her right. There are airspace opacities in all lung zones bilater ally, worst in right lower lung zone. There is a small right pleural effusion. No pneumothorax. Cardi omegaly is noted. The endotracheal tube tip is 3.6 cm above the angy. The nasogastric tube tip is b eyond the inferior margin of the radiograph, but at least to the stomach. IMPRESSION: 1. Improved diffuse lung disease, consistent with pulmonary edema versus pneumonia. 2. Improved small right pleural effusion. 3. Cardiomegaly. Reviewed, dictated and finalized at location A. IMPRESSION: 1. Improved diffuse lung disease, consistent with pulmonary edema versus pneumo susi. 2. Improved small right pleural effusion. 3. Cardiomegaly.
--- NOTE | ~2021-10-18 | XR_ITS ---
EXAMINATION: XR chest 1V portable INDICATION: Respiratory failure TECHNIQUE: Portable AP chest at 0829 hours COMPARISON: 07/01/2019 FINDINGS: The endotracheal tube ends approximately 3.8 cm above the angy. The nasogastric tube is i n the stomach. Cardiomegaly is noted. There are diffuse interstitial and airspace opacities. A small right pleural effusion is suggested. There is no pneumothorax. IMPRESSION: 1. Diffuse lung disease, consistent with pneumonia and/or pulmonary edema. 2. Cardiomegaly. 3. Possible small right pleural effusion. Reviewed, dictated and finalized at location A.
--- NOTE | ~2021-10-18 | CT_ITS ---
EXAMINATION: CTA chest PE abdomen pel DATE: 10/21/2021 11:27 INDICATION: Fever TECHNIQUE: Computed tomography angiography (CTA) of the chest was performed with 100 mL Omnipaque-350 intravenous contrast timed to evaluate the pulmonary arteries. Subsequent postcontrast images of the abdomen and pelvis are obtained. Coronal maximum intensity projection 3D-reconstructions were create d by the technologist. The dose-length product (DLP) was 2368.00 mGy-cm. Automated exposure control a nd iterative reconstruction technique were employed. COMPARISON: 11/30/2018 FINDINGS: CTA CHEST: Respiratory motion artifact limits the examination. The pulmonary arteries are well-opacif ied. No pulmonary embolism is identified. Cardiomegaly is noted. There are small pleural effusions, r ight greater than left. No pneumothorax is identified. The endotracheal tube is in adequate position. There are widespread patchy interstitial and airspace opacities throughout the lungs. There is mild bilateral hilar and mediastinal lymphadenopathy, likely reactive. Right axillary lymphadenopathy is n oted. ABDOMEN/PELVIS CT: The gallbladder is distended. There is chronic mild wall thickening of the gallbla dder. A stent is noted in the common bile duct. The liver, spleen, and left adrenal gland are normal. There is a 1.7 cm adenoma of the right adrenal gland There is atrophy of the pancreas. There is also atrophy of the kidneys. A 1.5 cm hypoattenuating lesion is noted in the left kidney. There is mild l umbar spondylosis. There is calcified atherosclerosis of the aorta and many of the other arteries. No pathologically enlarged abdominal or pelvic lymph nodes are identified. The bladder is decompresse d by Sanz catheter. IMPRESSION: 1. No pulmonary embolus identified, sensitivity limited by respiratory motion artifact. 2. Diffuse lung disease, consistent with pulmonary edema and/or pneumonia. 3. Gallbladder distention and chronic wall thickening of the gallbladder which could reflect acute ve rsus chronic cholecystitis. 4. Indeterminate left kidney mass which may be benign or malignant, nonemergent follow-up is recommen ded. Reviewed, dictated and finalized at location A. IMPRESSION: 1. No pulmonary embolus identified, sensitivity limited by respiratory motion a rtifact. 2. Diffuse lung disease, consistent with pulmonary edema and/or pneumonia. 3. Gallbladder distention and chronic wall thickening of the gallbladder which could reflect acute versus chronic cholecystitis. 4. Indeterminate left kidney mass which may be benign or malignant, nonemergent follow-up is recommended.
--- NOTE | ~2021-10-18 | US_ITS ---
EXAMINATION: US arterial ankle brachial ind DATE: 10/20/2021 12:23 INDICATION: Decreased pulses TECHNIQUE: Segmental pressures and plethysmographic and Doppler waveforms of the brachial and lower e xtremity arteries were obtained. COMPARISON: None. FINDINGS: Right brachial artery was unable to be occluded as with the dorsalis pedis and posterior tibial arter ies at both the right and left ankles precluding assessment for ankle brachial indices. The left brac hial artery was unable to be assessed due to the presence of a dialysis fistula. Symmetric peak systolic pressures at the bilateral great toes measuring 63 mmHg on the right and 61 m mHg on the left. Toe brachial indices were unable to be assessed due to the absence of brachial arter y pressures. Arterial Doppler waveforms are biphasic with brisk systolic upstrokes at both the left a nd right posterior tibial and dorsalis pedis arteries.. IMPRESSION: 1. Biphasic waveforms with brisk systolic upstrokes at the posterior tibial and dorsalis pedis arteri es of both ankles. Ankle brachial and toe brachial indices were unable to be obtained due to inabilit y to occlude the vessels of the brachial arteries were the arteries at the bilateral ankles. Reviewed, dictated and finalized at location A. IMPRESSION: 1. Biphasic waveforms with brisk systolic upstrokes at the posterior tibial and dorsalis pedis arteries of both ankles. Ankle brachial and toe brachial indice s were unable to be obtained due to inability to occlude the vessels of the bra chial arteries were the arteries at the bilateral ankles.
--- NOTE | 2021-10-18 07:50 | PC.NURSE ---
This patient, Pennie Buckley, was admitted to Intensive Care Unit-7. Patient/family oriented to hospital policies and general routines including ID bracelet, bed and alarms, visiting hours, pain management, procedures, bathroom and other care routines, personal items, smoking policy, room service/diet, and visiting hours. Information on how to activate the Rapid Response Team has been discussed. Patient/Family are encouraged to report perceived risks to care and to ask questions if they do not understand what they are told or what they should do.
--- NOTE | 2021-10-18 08:27 | WPDCNINT ---
Assessment and Plan Assessment and plan (1) Acute respiratory failure: Code(s): J96.00 - Acute respiratory failure, unspecified whether with hypoxia or hypercapnia Status: Acute Assessment and Plan: Acute multifactorial Respiratory failure secondary to congestive heart failure pulmonary edema, pneumonia, cardiac arrest Vent settings reviewed and adjusted Continue full mechanical ventilation support to prevent hypoxemia/hypercarbia and end organ damage. Check ABG Chest x-ray reviewed on arrival to ICU ET tube is in acceptable position and it shows persistent diffuse bilateral infiltrate Low tidal volume ventilation strategy to prevent volutrauma Bronchodilators ordered Sedation with propofol and fentanyl for mechanical ventilation with daily sedation holiday (2) Septic shock: Code(s): A41.9 - Sepsis, unspecified organism; R65.21 - Severe sepsis with septic shock Status: Acute Assessment and Plan: Patient has shock likely secondary to sepsis from pneumonia but may have a cardiogenic component Limited amount of IV fluids given due to volume overload and end-stage renal disease Blood cultures were drawn at [facility] ER Check sputum culture Empiric vancomycin Zosyn and doxycycline Levophed infusion to maintain mean arterial pressure Repeat lactic acid level (3) Congestive heart failure: Qualifiers: Heart failure chronicity: acute on chronic Heart failure type: unspecified Qualified Code(s): I50.9 - Heart failure, unspecified Code(s): I50.9 - Heart failure, unspecified Status: Acute Assessment and Plan: Patient is overall volume overloaded and will need hemodialysis for fluid removal (4) COPD (chronic obstructive pulmonary disease): Code(s): J44.9 - Chronic obstructive pulmonary disease, unspecified Status: Acute Assessment and Plan: See above (5) Pneumonia: Code(s): J18.9 - Pneumonia, unspecified organism Status: Acute Assessment and Plan: See above (6) Cardiac arrest: Code(s): I46.9 - Cardiac arrest, cause unspecified Status: Acute Assessment and Plan: Secondary to respiratory failure and respiratory arrest EKG reviewed and did not show any ST elevation which showed left bundle branch block Repeat EKG now has lot of artifact but does show bundle-branch block Check Serial troponin Consult Dr. Alexander Aspirin, statin Hold systemic anticoagulation due to significant amount of bloody secretions coming out of ETT. Echo 09/17/21 Summary ? 1. Complete two-dimensional, color flow and Doppler transthoracic echocardiogram is performed. ? 2. Left ventricular chamber dimension is normal. ? 3. Left ventricular systolic function is normal, estimated at 55-60%. ? 4. There is mildly increased left ventricular wall thickness. ? 5. The left ventricular diastolic function is grade I diastolic dysfunction. ? 6. E/e' 22 is elevated. ? 7. Global longitudinal strain is abnormal at -15.3%. ? 8. Left atrial chamber dimension is severely enlarged. ? 9. Right atrial chamber dimension is mildly enlarged. ? 10. The mitral valve has moderately calcified annulus. ? 11. There is trace tricuspid valve regurgitation. ? 12. Mild pulmonary hypertension, estimated pulmonary arterial systolic pressure is 41 mmHg (7) HTN (hypertension): Code(s): I10 - Essential (primary) hypertension Status: Acute Assessment and Plan: Patient currently in shock and on Levophed Hold patient's home antihypertensive medications (8) ESRD (end stage renal disease) on dialysis: Code(s): N18.6 - End stage renal disease; Z99.2 - Dependence on renal dialysis Status: Acute Assessment and Plan: Check electrolytes Consult nephrology for hemodialysis (9) Diabetes mellitus: Code(s): E11.9 - Type 2 diabetes mellitus without complications Status: Acute Assessment and Plan: Q.4 hours sliding scale ordered Star
--- NOTE | 2021-10-18 08:39 | ECG_ITS ---
Measurements Intervals [place] Rate: 96 P: 52 SD: 177 QRS: -16 QRSD: 169 T: 94 QT: 419 QTc: 529 Interpretive Statements BASELINE ARTIFACT/POOR DATA QUALITY SINUS RHYTHM LEFT BUNDLE BRANCH BLOCK [120+ ms QRS DURATION, 80+ ms Q/S IN V1/V2, 85+ ms R IN I/aVL/V5/V6] COMPARED TO ECG 07/01/2019 12:21:36 LEFT BUNDLE-BRANCH BLOCK NOW PRESENT Electronically Signed On 10-18-2021 14:00:43 CDT by Scott Lucio M.D.
[2021-10-18 08:49] LABS: Hematocrit 32.6 % (37.0-47.0); Hemoglobin 10.1 g/dL (12.0-15.0); Mean Corpuscular Volume 103.2 fl (80-100); Mean Platelet Volume 8.5 fl (7.4-10.4); Platelet Count Result 303 k/mm3 (150-375); Red Blood Count 3.16 M/mm3 (4.2-5.4); Red Cell Distribution Width 13.9 % (11.5-14.5); White Blood Count 31.2 K/mm3 (4.5-10.0)
[2021-10-18] MEDS: PROPOFOL IV EMULSION 100 ML 3.3 MG IV CONT (09:05)
[2021-10-18 09:08] LABS: Alanine Aminotransferase 109 U/L (6-35); Albumin Level 3.6 g/dL (3.5-5.1); Alkaline Phosphatase 106 U/L (38-126); Anion Gap 15 mmol/L (8-16); Aspartate Amino Transferase 126 U/L (14-36); Bilirubin,Total 0.5 mg/dL (0.2-1.3); Blood Urea Nitrogen 73 mg/dL (7-17); Calcium 8.7 mg/dL (8.4-10.2); Carbon Dioxide 23 mmol/L (22-30); Chloride 98 mmol/L (98-107); Estimated CRCL calculation 9 ml/min; Estimated Glomerular Filt Rate 6; Glucose 270 mg/dL (65-110); Lactic Acid Reflex 3.7 mmol/L (0.7-2.0); Magnesium 1.9 mg/dL (1.6-2.3); Potassium 5.1 mmol/L (3.4-5.0); Sodium 136 mmol/L (137-145)
[2021-10-18 09:19] LABS: Band Neutrophils Percent 2 % (0-6); Lymphocytes Absolute Manual 1.87 K/mm3 (1.1-4.5); Monocytes Absolute Manual 0.62 K/mm3 (0.1-0.90); Monocytes Percent Manual 2 % (3-9); Neutrophils Percent Manual 90 % (46-73); Platelet Estimate Adequate (Adequate); Total Cells Counted 100
[2021-10-18 09:20] LABS: Anisocytosis 1+ (NORMAL)
[2021-10-18 09:50] LABS: Alveolar/Arterial O2 Gradient 573.8 mmHg; Base Excess ABG -6.4 mEq/l (+/-2.0); Fractional Inspired Oxygen 100 %; HCO3 ABG 17.9 mEq/l (22.0-26.0); Oxygen Content ABG 14.4 %vol (16.0-22.0); Oxygen Saturation ABG 97.9 % (95.0-100.0); Oxyhemoglobin 96.5 % THb (90.0-100.0); PCO2 ABG 31.3 mmHg (35.0-45.0); PO2 ABG 107.9 mmHg (80.0-100.0); PO2 FiO2 Ratio Arterial Blood 1.08 %; Total Hemoglobin 10.5 g/dL (12.0-18.0); pH ABG 7.374 (7.350-7.450)
[2021-10-18 09:51] LABS: Arterial Blood Gas PEEP 8 cmH2O; Arterial Blood Gas Tidal Volume 450 ml; Arterial Blood Gas Vent Mode CMV; Arterial Blood Gas Ventilator rate 24 /MIN; Device VENTILATOR; Site Drawn RIGHT BRACHIAL
--- NOTE | 2021-10-18 09:59 | ECG_ITS ---
Measurements Intervals [place] Rate: 69 P: 26 MA: 189 QRS: -28 QRSD: 167 T: 86 QT: 515 QTc: 555 Interpretive Statements SINUS RHYTHM WITH SINUS ARRHYTHMIA LEFT BUNDLE BRANCH BLOCK [120+ ms QRS DURATION, 80+ ms Q/S IN V1/V2, 85+ ms R IN I/aVL/V5/V6] COMPARED TO ECG 10/18/2021 08:56:46 THE CURRENT ELECTROCARDIOGRAM IS OF BETTER QUALITY/NO OBVIOUS DIFFERENT Electronically Signed On 10-18-2021 14:02:12 CDT by Scott Lucio M.D.
--- NOTE | 2021-10-18 11:15 | PM.CNNEP ---
Assessment and Plan Assessment and plan (1) Shock: Code(s): R57.9 - Shock, unspecified Status: Acute Assessment and Plan: Resolved. Likely due to respiratory failure from pneumonia. Was on Levophed but no longer requiring it. Obtain echo for this presentation. (2) Acute respiratory failure: Code(s): J96.00 - Acute respiratory failure, unspecified whether with hypoxia or hypercapnia Status: Acute Assessment and Plan: Ventilator managed by matchbook maker. (3) Pneumonia: Code(s): J18.9 - Pneumonia, unspecified organism Status: Acute Assessment and Plan: On antibiotics per hospitalist. (4) HLD (hyperlipidemia): Code(s): E78.5 - Hyperlipidemia, unspecified Status: Acute Assessment and Plan: On Atorvastatin. (5) HTN (hypertension): Code(s): I10 - Essential (primary) hypertension Status: Acute Assessment and Plan: Monitor. (6) Diastolic dysfunction: Code(s): I51.89 - Other ill-defined heart diseases Status: Acute Assessment and Plan: Fluid level controlled with HD. (7) ESRD (end stage renal disease) on dialysis: Code(s): N18.6 - End stage renal disease; Z99.2 - Dependence on renal dialysis Status: Acute Plan MMID HYPERKALEMIA AND VOL OVERLOAD REQUIRE HD TODAY AND LIKELY TOMORROW BROAD SPECTRUM ABX PER ICU TEAM REC'S DOSE ADJUST MEDS NEEDED HOLD ANTI-HYPERTENSIVE MEDS FOR NOW. CONT TO SEARCH FOR OTHER ETIOLOGIES- SHE HAS ACTUALLY BEEN QUITE STABLE AND THE ONLY OTHER RECENT EVENT WAS LEG FRACTURE EARLIER THIS YEAR REQUIRING STAY IN REHAB BUT SHE HAS BEEN OUT SINCE APR-MAY 2021 History of Present Illness Reason for Consult Consult date: 10/19/21 Chief Complaint Chief complaint: Respiratory Arrest Septic Shock ESRD History of Present Illness Narrative: 71 yo wf with pmhx o sys/diastolic chf, dm2, htn, and esrd on hd at [facility] [id number] shift was transferred from [facility] [place] due to no dialysis services there are suffering resp arrest. Apparently pt had not been feeling well for a few days and family came to check on her and found her struggling to breath and v weak. Ambulance transported her to [facility] [place] where she was intubated and is now transferred here. Previously hypotensive requiring Levophed but is now off all pressors. Review of Systems Review of Systems: unobtainable other than hpi PMFSH Past Medical History Medical History Arthritis CHF (congestive heart failure) Diabetes mellitus DVT (deep venous thrombosis) Fistula Fracture HLD (hyperlipidemia) HTN (hypertension) Hypoglycemic coma IBS (irritable bowel syndrome) Kidney stone On home oxygen therapy Peripheral neuropathy Pulmonary embolism Rectal polyp Renal disease Surgical History Surgical History H/O: hysterectomy History of History of cataract surgery Family History Family History Mother Family history of gout Hypertension Family history of elevated blood lipids Family history of arthritis Father Family history of kidney disease Other Family history of cardiovascular disease Family history of lung cancer Family history of malignant neoplasm of kidney Social History Social History Smoking status: Never smoker Alcohol intake: former Substance use: never Substance use type: does not use Gender identity (if verbalized by the patient): Female Spiritual care concerns: Yes ([facility]) Meds Home Medications and Allergies Home Medications Medication Instructions Recorded Confirmed Type atorvastatin 20 mg tablet 20 mg PO HS 02/20/19 10/18/21 History carvedilol 25 mg tablet 25 mg PO BID 02/20/19 10/18/21 History cholecalciferol (lesly
[2021-10-18] MEDS: INSULIN HUMAN REGULAR (*BKC) 100 UNITS/ML IV PUSH (11:25)
[2021-10-18] MEDS: INSULIN ASPART (*BKC) 100 UNITS/ML SUB-Q ×2 (11:26→17:51)
--- NOTE | 2021-10-18 11:29 | PM.IMHP ---
H&P: HPI History of Present Illness Date/Time: 10/18/21 11:29 Chief Complaint: Pennie Buckley is a 71 year old female with past medical history of end-stage renal disease, diabetes, hypertension was pressor from [facility] ER with? respiratory failure and cardiac arrest.? Reason for transfer was that they do not have dialysis capability.? Patient called EMS with chief complaint of shortness of breath for last few days.? Patient was found to be hypoxic.? Patient was being transferred to ambulance and plan was to initiate BiPAP.? At that time patient became unresponsive due to severe hypoxic and lost her pulse.? Patient was intubated, brief amount of CPR was given including to epinephrine and 1 vasopressin before ROSC was obtained.? patient was transferred here for ongoing care and for HD Review of Systems Review of Systems: Unable to obtain [facility] Past Medical History Medical History Arthritis CHF (congestive heart failure) Diabetes mellitus DVT (deep venous thrombosis) Fistula Fracture HLD (hyperlipidemia) HTN (hypertension) Hypoglycemic coma IBS (irritable bowel syndrome) Kidney stone On home oxygen therapy Peripheral neuropathy Pulmonary embolism Rectal polyp Renal disease Surgical History Surgical History H/O: hysterectomy History of History of cataract surgery Family History Family History Mother Family history of gout Hypertension Family history of elevated blood lipids Family history of arthritis Father Family history of kidney disease Other Family history of cardiovascular disease Family history of lung cancer Family history of malignant neoplasm of kidney Social History Social History Smoking status: Never smoker Alcohol intake: never Substance use: never Substance use type: does not use Gender identity (if verbalized by the patient): Female Spiritual care concerns: No Meds Home Medications and Allergies Home Medications Medication Instructions Recorded Confirmed Type aspirin 325 mg tablet,delayed 325 mg PO DAILY 02/20/19 08/19/21 History release atorvastatin 20 mg tablet 20 mg PO HS 02/20/19 08/19/21 History carvedilol 25 mg tablet 25 mg PO BID 02/20/19 08/19/21 History cholecalciferol (vitamin D3) 50 2,000 unit PO DAILY 02/20/19 08/19/21 History mcg (2,000 unit) tablet folic acid 1 mg tablet 1 mg PO DAILY 02/20/19 08/19/21 History insulin glargine 100 unit/mL 8 unit subcut HS 02/20/19 08/19/21 History subcutaneous solution (Lantus U-100 Insulin) albuterol sulfate 2.5 mg/0.5 mL 5 mg inhalation Q6HRT 30 days #120 02/25/19 08/19/21 Rx solution for nebulization ea nebulizers (Aeroneb Go Nebulizer) #1 ea 02/25/19 08/19/21 Rx acetaminophen 325 mg capsule 325 mg PO Q6H PRN Pain 05/16/19 08/19/21 History venlafaxine 25 mg tablet 25 mg PO HS #90 tabs 05/20/19 08/19/21 Rx fluticasone propionate 50 intranasal 07/01/19 08/19/21 History mcg/actuation nasal spray,suspension olopatadine 0.1 % eye drops 07/01/19 08/19/21 History ondansetron HCl 8 mg tablet 07/01/19 08/19/21 History omega-3 fatty acids 1,000 mg 1,000 mg PO DAILY 02/22/21 08/19/21 History capsule (Fish Oil Concentrate) amlodipine 5 mg tablet See Rx Instructions .Route 04/04/21 08/19/21 Rx .COMPLEX #90 tabs Allergies Allergy/AdvReac Type Severity Reaction Status Date / Time hydromorphone Allergy Unknown Unknown Verified 08/19/21 10:37 meperidine Allergy Unknown Nausea Verified 08/19/21 10:37 Vital Signs Vital Signs - 24 hr 10/18/21 08:32 10/18/21 08:57 10/18/21 09:05 Temperature 97.8 F Pulse Rate 80 96 96 Respiratory Rate 32 H 26 H Blood Pressure 150/70 H Pulse Oximetry 100 92 Oxygen Delivery Mechanical Ventilation Fraction of Inspi
[2021-10-18] MEDS: ATORVASTATIN 20 MG TABLET PO (11:31)
[2021-10-18] MEDS: ASPIRIN 325 MG TABLET PO (11:31)
[2021-10-18] MEDS: PANTOPRAZOLE SODIUM IV 40 MG VIAL IV PUSH (11:31)
[2021-10-18 11:43] LABS: Reflex Lactic Acid Yes or No Add Lactic
[2021-10-18] MEDS: DOXYCYCLINE 100 MG/NS 100 ML 100 MG/100 ML BAG IVPB ×2 (11:43→20:38)
[2021-10-18 12:03] LABS: Hepatitis B Surface Antigen Negative (Negative)
--- NOTE | 2021-10-18 12:07 | PM.CNCAR ---
Assessment and Plan Assessment and plan (1) Shock: Code(s): R57.9 - Shock, unspecified Status: Acute Assessment and Plan: Resolved. Likely due to respiratory failure from pneumonia. Was on Levophed but no longer requiring it. Obtain echo for this presentation. (2) Acute respiratory failure: Code(s): J96.00 - Acute respiratory failure, unspecified whether with hypoxia or hypercapnia Status: Acute Assessment and Plan: Ventilator managed by seafood fisherman. (3) Pneumonia: Code(s): J18.9 - Pneumonia, unspecified organism Status: Acute Assessment and Plan: On antibiotics per hospitalist. (4) HLD (hyperlipidemia): Code(s): E78.5 - Hyperlipidemia, unspecified Status: Acute Assessment and Plan: On Atorvastatin. (5) HTN (hypertension): Code(s): I10 - Essential (primary) hypertension Status: Acute Assessment and Plan: Monitor. (6) Diastolic dysfunction: Code(s): I51.89 - Other ill-defined heart diseases Status: Acute Assessment and Plan: Fluid level controlled with HD. (7) ESRD (end stage renal disease) on dialysis: Code(s): N18.6 - End stage renal disease; Z99.2 - Dependence on renal dialysis Status: Acute History of Present Illness History of Present Illness Consult date/time: 10/18/21 12:07 Reason For Visit: Respiratory Arrest Septic Shock ESRD Narrative: Patient is a 70 yr old woman who is my regular cardiology patient who presented with sob. She has a history of combined systolic and diastolic heart failure, hypertension, DM, ESRD on HD, dyslipidemia, COPD, anemia. She was transferred from [facility] ER with?respiratory failure and cardiac arrest.? Reason for transfer was that they do not have dialysis capability.? Patient called EMS with chief complaint of shortness of breath for last few days.? Patient was found to be hypoxic.? Patient was being transferred to ambulance and plan was to initiate BiPAP.? At that time patient became unresponsive due to severe hypoxic and lost her pulse.? Patient was intubated, brief amount of CPR was given including to epinephrine and 1 vasopressin before ROSC was obtained.? Currently she is sedated on ventilator. Daughter is at bedside. According to her daughter she was having sob for last 3 days and suddenly it got worse last night and so they called ambulance. Cardiovascular Procedures Echo/MUGA:: 02/14/20 Echo: EF 50-55%, mod LVH, grade I diastolic dysfunction (E/e' 14), mod LAE, small pericardial effusion. 02/21/19 EF 35-40%, diastolic dysfunction (E/e' 24), severe LAE, mod MAC ,mod MR. Echo (EF 30-35%, Mod LVE, grade I diastolic dysfunction (E/E' 22), severe LAE, mild VANDA, mod MAC ,mild-mod MR, trace TR, RVSP 48 mmHg.) - 11/15/2018 Electrophysiology:: 07/01/19 EKG: Sinus rhythm, anteroseptal infarct, age indeterminate, borderline ST abnormality in lateral leads. EKG (Sinus rhythm, Anteroseptal infarct, age indeterminate, borderline ST-T wave in lateral leads.) - 11/02/2018 Stress Tests:: 07/01/19 CXR: Cardiomegaly. Atelectasis. Mod right pleural effusion and small left pleural effusion. MPI (Lexiscan myoview: Negative for ischemia. Small mild infarcts of apical septum and mid inferior thomas. EF 44%.) - 11/15/2018 Review of Systems Review of Systems: ROS unobtainable: Yes unobtainable due to endotracheal tube PMFSH Past Medical History Medical History Arthritis CHF (congestive heart failure) Diabetes mellitus DVT (deep venous thrombosis) Fistula Fracture HLD (hyperlipidemia) HTN (hypertension) Hypoglycemic coma IBS (irritable bowel syndrome) Kidney stone On home oxygen therapy Peripheral neuropathy Pulmonary embolism Rectal polyp Renal disease Surgical History Surgical History H/O: hysterectomy History of History of cataract surgery
[2021-10-18 12:08] LABS: Hepatitis B Core IgM Result Negative (Negative)
[2021-10-18 12:31] LABS: Lactic Acid 2.4 mmol/L (0.7-2.0)
[2021-10-18 12:34] LABS: Glucose Point of Care 244 mg/dl (65-105)
[2021-10-18] MEDS: IPRATROPIUM BR 0.02% INH SOLN 0.5 MG/2.5 ML VIAL INHALATION ×2 (14:05→20:00)
[2021-10-18] MEDS: ALBUTEROL SULFATE NEB 2.5 MG/3 ML INH INHALATION ×2 (14:05→20:00)
[2021-10-18 14:47] LABS: Troponin I 0.069 ng/mL (0.000-0.034)
[2021-10-18] MEDS: CENTRAL LINE FLUSH 10 ML IV PUSH ×3 (15:04→20:51)
[2021-10-18 17:08] LABS: Glucose Point of Care 203 mg/dl (65-105)
--- NOTE | 2021-10-18 19:58 | PCDIET ---
Per Sol DONALD RN 3liters were removed during hemodialysis.
[2021-10-18] MEDS: PROPOFOL IV EMULSION 100 ML 9.9 MG IV CONT (20:46)
[2021-10-18] MEDS: MINERAL OIL/WHITE PETROLATUM OINTMENT 1 APPLIC EACH EYE (20:53)
[2021-10-18 21:13] LABS: Glucose Point of Care 168 mg/dl (65-105)
[2021-10-18 21:35] LABS: Troponin I 0.073 ng/mL (0.000-0.034)
--- NOTE | 2021-10-18 23:18 | PC.NURSE ---
DR Bass made aware of last troponin 0.073 and use of cooling blanket to keep temperature below 96.8.
--- NOTE | 2021-10-18 23:19 | PC.NURSE ---
Dr Bass made aware of last troponin 0.073 and use of cooling blanket to keep temperature below 96.8.
[2021-10-19] VITALS (62 sets, daily range): BP systolic 98–153; BP diastolic 34–99; PULSE 68–120; RESP 20–29; TEMP 34.8–38.6; O2SAT 90–100
[2021-10-19 00:25] LABS: Glucose Point of Care 208 mg/dl (65-105)
[2021-10-19] MEDS: INSULIN ASPART (*BKC) 100 UNITS/ML SUB-Q ×6 (00:34→20:44)
--- NOTE | 2021-10-19 01:28 | PC.NURSE ---
0100 propofol increased janis to increased alarming and possible shivering.
[2021-10-19] MEDS: IPRATROPIUM BR 0.02% INH SOLN 0.5 MG/2.5 ML VIAL INHALATION ×4 (01:55→20:47)
[2021-10-19] MEDS: ALBUTEROL SULFATE NEB 2.5 MG/3 ML INH INHALATION ×4 (01:56→20:47)
--- NOTE | 2021-10-19 03:19 | PC.NURSE ---
Propofol increased; pt continues to intermittently stack breaths.
[2021-10-19] MEDS: PROPOFOL IV EMULSION 100 ML 23.1 MG IV CONT (03:29)
[2021-10-19 04:48] LABS: Glucose Point of Care 248 mg/dl (65-105)
[2021-10-19 04:51] LABS: Hematocrit 27.5 % (37.0-47.0); Hemoglobin 8.7 g/dL (12.0-15.0); Mean Corpuscular HGB Conc 31.6 g/dl (32-36); Mean Corpuscular Hemoglobin 31.6 pg (26-34); Mean Platelet Volume 8.8 fl (7.4-10.4); Platelet Count Result 222 k/mm3 (150-375); Red Blood Count 2.75 M/mm3 (4.2-5.4); Red Cell Distribution Width 14.3 % (11.5-14.5); White Blood Count 14.4 K/mm3 (4.5-10.0)
[2021-10-19] MEDS: CENTRAL LINE FLUSH 10 ML IV PUSH ×4 (05:05→21:43)
[2021-10-19 05:10] LABS: Alanine Aminotransferase 91 U/L (6-35); Albumin Level 3.2 g/dL (3.5-5.1); Alkaline Phosphatase 99 U/L (38-126); Anion Gap 12 mmol/L (8-16); Aspartate Amino Transferase 51 U/L (14-36); Bilirubin,Total 0.7 mg/dL (0.2-1.3); Blood Urea Nitrogen 42 mg/dL (7-17); Calcium 8.4 mg/dL (8.4-10.2); Carbon Dioxide 30 mmol/L (22-30); Chloride 91 mmol/L (98-107); Estimated CRCL calculation 15 ml/min; Estimated Glomerular Filt Rate 12; Glucose 236 mg/dL (65-110); Magnesium 1.7 mg/dL (1.6-2.3); Phosphorus 4.1 mg/dL (2.5-4.5); Potassium 3.3 mmol/L (3.4-5.0); Sodium 133 mmol/L (137-145)
[2021-10-19 05:20] LABS: Alveolar/Arterial O2 Gradient 299.9 mmHg; Base Excess ABG 3.2 mEq/l (+/-2.0); Carboxyhemoglobin 0.2 % THb (0-2.0); Fractional Inspired Oxygen 65 %; HCO3 ABG 26.1 mEq/l (22.0-26.0); Oxygen Saturation ABG 98.8 % (95.0-100.0); Oxyhemoglobin 97.4 % THb (90.0-100.0); PCO2 ABG 33.2 mmHg (35.0-45.0); PO2 ABG 127.5 mmHg (80.0-100.0); PO2 FiO2 Ratio Arterial Blood 1.96 %; Reduced Hemoglobin 2.4 %THb (0-5.0); Total Hemoglobin 9.3 g/dL (12.0-18.0)
[2021-10-19 05:22] LABS: Device VENTILATOR; Site Drawn RIGHT BRACHIAL; pH ABG 7.514 (7.350-7.450)
[2021-10-19 05:23] LABS: Arterial Blood Gas PEEP 12 cmH2O; Arterial Blood Gas Tidal Volume 450 ml; Arterial Blood Gas Vent Mode CMV; Arterial Blood Gas Ventilator rate 24 /MIN
[2021-10-19 07:21] LABS: Glucose Point of Care 242 mg/dl (65-105)
--- NOTE | 2021-10-19 07:41 | PM.PNCARD ---
Progress Note: A&P Assessment and Plan (1) Shock: Code(s): R57.9 - Shock, unspecified Status: Acute Assessment and Plan: Resolved. Likely due to respiratory failure from pneumonia. Was on Levophed but no longer requiring it. 10/18/21 Echo: EF 60-65%, mild LVH, diastolic dysfunction with E/e' 33, severe LAE, mod MAC and mitral valve calcifications, mild MR, trace TR/PI, severe pulm hypertension with RVSP 61 mmHg. (2) Acute respiratory failure: Code(s): J96.00 - Acute respiratory failure, unspecified whether with hypoxia or hypercapnia Status: Acute Assessment and Plan: Ventilator managed by dairy management specialist. (3) Pneumonia: Code(s): J18.9 - Pneumonia, unspecified organism Status: Acute Assessment and Plan: On antibiotics per hospitalist. (4) HTN (hypertension): Code(s): I10 - Essential (primary) hypertension Status: Acute Assessment and Plan: Stable but off her home BP medications. Resume when BP starts to go up starting with Carvedilol, Olmesartan then Amlodipine in that order. (5) HLD (hyperlipidemia): Code(s): E78.5 - Hyperlipidemia, unspecified Status: Acute Assessment and Plan: On Atorvastatin. (6) Diastolic dysfunction: Code(s): I51.89 - Other ill-defined heart diseases Status: Acute Assessment and Plan: Fluid level controlled with HD. (7) ESRD (end stage renal disease) on dialysis: Code(s): N18.6 - End stage renal disease; Z99.2 - Dependence on renal dialysis Status: Acute Assessment and Plan: Fluid level controlled with HD. Subjective Date/time seen: 10/19/21 07:41 Patient is sedated on ventilator. Exam Const: Other: Sedated on ventilator Resp: Auscultation: no crackles, no rales, no rhonchi, no wheezes and diminished lung sounds Cardio: Jugular venous distension: no JVD Rate: regular rate Rhythm: regular rhythm Heart sounds: no murmurs Peripheral pulses: dorsalis pedis present GI: GI Palp: No abdominal tenderness and Yes Soft to palpation Extrem: Right lower extremity: no edema Left lower extremity: no edema Objective Data Vital Signs Vital Signs: Vital Signs - 24 hr 10/18/21 08:32 10/18/21 08:57 10/18/21 09:05 Temperature 97.8 F Pulse Rate 80 96 96 Respiratory Rate 32 H 26 H Blood Pressure 150/70 H Pulse Oximetry 100 92 Oxygen Delivery Mechanical Ventilation Fraction of Inspired Oxygen 100 10/18/21 09:30 10/18/21 08:00 10/18/21 08:15 Temperature Pulse Rate 97 76 76 Respiratory Rate 30 H 17 30 H Blood Pressure 145/64 H 150/84 H Pulse Oximetry 93 99 Oxygen Delivery Fraction of Inspired Oxygen 10/18/21 08:30 10/18/21 08:45 10/18/21 10:00 Temperature 97.6 F Pulse Rate 86 97 69 Respiratory Rate 30 H 32 H 26 H Blood Pressure 173/75 H 159/75 H 109/44 L Pulse Oximetry 99 90 94 Oxygen Delivery Fraction of Inspired Oxygen 10/18/21 10:58 10/18/21 08:00 10/18/21 12:00 Temperature 96.9 F L Pulse Rate 69 75 69 Respiratory Rate 17 Blood Pressure 130/63 Pulse Oximetry 97 100 Oxygen Delivery Mechanical Ventilation Fraction of Inspired Oxygen 80 10/18/21 10:00 10/18/21 12:00 10/18/21 13:15 Temperature Pulse Rate 69 69 68 Respiratory Rate Blood Pressure Pulse Oximetry 98 Oxygen Delivery Mechanical Ventilation Fraction of Inspired Oxygen 70 10/18/21 14:06 10/18/21 14:14 10/18/21 14:00 Temperature Pulse Rate 69 72 68 Respiratory Rate 21 H 19 Blood Pressure Pulse Oximetry Oxygen Delivery Fraction of Inspired Oxygen 10/18/21 14:00 10/18/21 08:00 10/18/21 08:00 Temperature 96.6 F L Pulse Rate 68 Respiratory Rate 24 H Blood Pressure 129/61 Pulse Oximetry 98 93 Oxygen Delivery Mechanical Ventilation Fraction of Inspired Oxygen 100 100 10/18/21 14:53 10/18/21 12:00 10/18/21 12:00 Temperature Pulse Rate 73 Respiratory Rate Blood
--- NOTE | 2021-10-19 07:53 | PM.PNNEP ---
Progress Note: A&P Assessment and Plan (1) Shock: Code(s): R57.9 - Shock, unspecified Status: Acute Assessment and Plan: Resolved. Likely due to respiratory failure from pneumonia. Was on Levophed but no longer requiring it. 10/18/21 Echo: EF 60-65%, mild LVH, diastolic dysfunction with E/e' 33, severe LAE, mod MAC and mitral valve calcifications, mild MR, trace TR/PI, severe pulm hypertension with RVSP 61 mmHg. (2) Acute respiratory failure: Code(s): J96.00 - Acute respiratory failure, unspecified whether with hypoxia or hypercapnia Status: Acute Assessment and Plan: Ventilator managed by end polisher. (3) Pneumonia: Code(s): J18.9 - Pneumonia, unspecified organism Status: Acute Assessment and Plan: On antibiotics per hospitalist. (4) HTN (hypertension): Code(s): I10 - Essential (primary) hypertension Status: Acute Assessment and Plan: Stable but off her home BP medications. Resume when BP starts to go up starting with Carvedilol, Olmesartan then Amlodipine in that order. (5) HLD (hyperlipidemia): Code(s): E78.5 - Hyperlipidemia, unspecified Status: Acute Assessment and Plan: On Atorvastatin. (6) Diastolic dysfunction: Code(s): I51.89 - Other ill-defined heart diseases Status: Acute Assessment and Plan: Fluid level controlled with HD. (7) ESRD (end stage renal disease) on dialysis: Code(s): N18.6 - End stage renal disease; Z99.2 - Dependence on renal dialysis Status: Acute Assessment and Plan: Fluid level controlled with HD. (8) Diastolic congestive heart failure: Code(s): I50.30 - Unspecified diastolic (congestive) heart failure Status: Acute (9) Anemia in CKD (chronic kidney disease): Code(s): N18.9 - Chronic kidney disease, unspecified; D63.1 - Anemia in chronic kidney disease Status: Acute Plan 1 I THINK SHE COULD BENEFIT FROM MORE FLUID REMOVAL- SCHEDULE DRY UF SESSION TODAY. 2. CONSIDER UPDATE OF ECHO 3. CONT ABX 4. CONT OFF ANTI-HYPERTENSIVE 5. START EPOGEN-RETACRIT. 6. DEFER TO ICU TEAM TO ADJUST MINUTE VENTILATION FOR RESP ALKLOSIS- Subjective Date/time seen: 10/19/21 07:53 Review of Systems Review of Systems: PT REMAINS INTUBATED. VENT R 24 PPK 34 VT 450 PEEP 12 F 60%- ABG C/W SOME MILD OVERVENTILATION W RESP ALKLOSIS. REMAINS ON SEDATION WITH DIPRIVANT AND IS TOLERATING TF'S WITH NEPRO. HD WENT WELL YESTERDAY Exam Const: General: comfortable Other: INTUBATED AND SEDATED Resp: Other: RHONCHI BILAT BASES Cardio: Other: RRR +S4 G GI: Other: NO ACITES- + BS Skin: Other: EDEMA BILAT LEGS 2-3+ Objective Data Vital Signs Vital Signs: Vital Signs - 24 hr 10/18/21 08:32 10/18/21 08:57 10/18/21 09:05 Temperature 36.6 C Pulse Rate 80 96 96 Respiratory Rate 32 H 26 H Blood Pressure 150/70 H Pulse Oximetry 100 92 Oxygen Delivery Mechanical Ventilation Fraction of Inspired Oxygen 100 10/18/21 09:30 10/18/21 08:00 10/18/21 08:15 Temperature Pulse Rate 97 76 76 Respiratory Rate 30 H 17 30 H Blood Pressure 145/64 H 150/84 H Pulse Oximetry 93 99 Oxygen Delivery Fraction of Inspired Oxygen 10/18/21 08:30 10/18/21 08:45 10/18/21 10:00 Temperature 36.4 C Pulse Rate 86 97 69 Respiratory Rate 30 H 32 H 26 H Blood Pressure 173/75 H 159/75 H 109/44 L Pulse Oximetry 99 90 94 Oxygen Delivery Fraction of Inspired Oxygen 10/18/21 10:58 10/18/21 08:00 10/18/21 12:00 Temperature 36.1 C L Pulse Rate 69 75 69 Respiratory Rate 17 Blood Pressure 130/63 Pulse Oximetry 97 100 Oxygen Delivery Mechanical Ventilation Fraction of Inspired Oxygen 80 10/18/21 10:00 10/18/21 12:00 10/18/21 13:15 Temperature Pulse Rate 69 69 68 Respiratory Rate Blood Pressure Pulse Oximetry 98 Oxygen Delivery Mechanical Ventilation Fraction of Inspired Oxygen 70
--- NOTE | 2021-10-19 08:50 | WPDCNINT ---
Assessment and Plan Assessment and plan (1) Cardiac arrest: Code(s): I46.9 - Cardiac arrest, cause unspecified Status: Acute Assessment and Plan: Cardiac arrest with CPR and 1 round of epi and vasopressin with ROSC -likely cause of cardiac arrest was respiratory failure, hypoxia -troponins have plateaued, no acute coronary syndrome as a cause of cardiac arrest per Cardiology -patient on target temperature management at 36? centigrade a 24 hours -will passively rewarm -10/18/2021 CT brain showed possible small acute infarct in the posterior left parietal lobe, age-related findings -neurology has been consulted -will hold sedation and evaluate mental status (2) Acute respiratory failure: Code(s): J96.00 - Acute respiratory failure, unspecified whether with hypoxia or hypercapnia Status: Acute Assessment and Plan: Acute respiratory failure likely related to pulmonary edema, pneumonia, congestive heart failure pulmonary hypertension -she presented the outside hospital with shortness of breath and hypoxia for few days, patient was being transferred to [facility] in an ambulance which she rested secondary to hypoxic respiratory failure - patient intubated on 10/18/2021 -chest x-ray on admission and this morning reviewed -patient did get dialyzed with improvement in x-ray this morning -currently on a PEEP of 12 and 65% FiO2 -ABGs reviewed, peep, FiO2 and respiratory rate adjusted -sedated with propofol infusion which is currently on hold to evaluate for mental status (3) Congestive heart failure: Qualifiers: Heart failure chronicity: acute on chronic Heart failure type: unspecified Qualified Code(s): I50.9 - Heart failure, unspecified Code(s): I50.9 - Heart failure, unspecified Status: Acute Assessment and Plan: 10/18/2021 Echocardiogram: LV systolic function is 60-65%, LV diastolic function is abnormal, left atrial chamber severely enlarged, mild aortic valve sclerosis, mild mitral valve regurg, severe pulmonary hypertension with RVSP of 61 mmHg -cardiology following the patient -will restart home meds when able (4) COPD (chronic obstructive pulmonary disease): Code(s): J44.9 - Chronic obstructive pulmonary disease, unspecified Status: Acute Assessment and Plan: Continue bronchodilators, antibiotics and mechanical ventilation (5) Pneumonia: Code(s): J18.9 - Pneumonia, unspecified organism Status: Acute Assessment and Plan: Chest x-ray with possible diffuse lung disease on admission -status post dialysis with improvement in opacities on the chest x-ray this morning. -patient has been started on doxycycline and Zosyn on 10/18/2021, continue (6) Pulmonary hypertension: Code(s): I27.20 - Pulmonary hypertension, unspecified Status: Acute Assessment and Plan: Echocardiogram showed severe pulmonary hypertension, (7) HTN (hypertension): Code(s): I10 - Essential (primary) hypertension Status: Acute Assessment and Plan: History of essential hypertension, will restart home meds when able (8) CVA (cerebral vascular accident): Code(s): I63.9 - Cerebral infarction, unspecified Status: Acute Assessment and Plan: 10/18/2021 CT brain: Showed possible will acute infarct in the posterior left parietal lobe with age-related changing -have discontinued sedation to evaluate mentation -neurology has been consulted -will require PT/OT once extubated Plan DVT prophylaxis: Lovenox Stress Ulcer Prophylaxis: Protonix Nutrition: Will start Tube Feeds today Code Status: Full Code Critical Care Time Spent: 51 minutes Due to a high probability of clinically significant, life threatening deterioration, the patient required my highest level of preparedness to intervene emergently and I personally spent this critical care time directly and personally managing the patient. This critical care ti
[2021-10-19] MEDS: POTASSIUM CHLORIDE 20 MEQ PACKET (FOR LIQUID) FEED TUBE (09:08)
[2021-10-19] MEDS: PANTOPRAZOLE SODIUM IV 40 MG VIAL IV PUSH (09:08)
[2021-10-19] MEDS: ASPIRIN 325 MG TABLET PO (09:08)
[2021-10-19] MEDS: INSULIN GLARGINE (*BKC) 100 UNITS/ML SUB-Q (09:08)
[2021-10-19] MEDS: ATORVASTATIN 20 MG TABLET PO (09:10)
[2021-10-19] MEDS: ENOXAPARIN 30 MG/0.3 ML SYRINGE SUB-Q (09:16)
[2021-10-19] MEDS: EPOETIN ALFA-EPBX 10,000 UNITS/ML VIAL 10000 UNITS SUB-Q (09:16)
[2021-10-19] MEDS: DOXYCYCLINE 100 MG/NS 100 ML 100 MG/100 ML BAG IVPB ×2 (09:18→20:43)
--- NOTE | 2021-10-19 10:35 | PM.IMPN ---
Progress Note: A&P Assessment and Plan (1) Cardiac arrest: Code(s): I46.9 - Cardiac arrest, cause unspecified Status: Acute Assessment and Plan: Cardiac arrest with CPR and 1 round of epi and vasopressin with ROSC -likely cause of cardiac arrest was respiratory failure, hypoxia -cardiology following. No plan for intervention at this time. -continue respiratory support and ventilatory management per ICU (2) Acute respiratory failure: Code(s): J96.00 - Acute respiratory failure, unspecified whether with hypoxia or hypercapnia Status: Acute Assessment and Plan: Acute respiratory failure likely related to pulmonary edema, pneumonia Continue respiratory support and also antibiotics. Patient is currently on doxycycline and Zosyn (3) Congestive heart failure: Qualifiers: Heart failure chronicity: acute on chronic Heart failure type: unspecified Qualified Code(s): I50.9 - Heart failure, unspecified Code(s): I50.9 - Heart failure, unspecified Status: Acute Assessment and Plan: 10/18/2021 Echocardiogram: LV systolic function is 60-65%, LV diastolic function is abnormal, left atrial chamber severely enlarged, mild aortic valve sclerosis, mild mitral valve regurg, severe pulmonary hypertension with RVSP of 61 mmHg -cardiology following (4) COPD (chronic obstructive pulmonary disease): Code(s): J44.9 - Chronic obstructive pulmonary disease, unspecified Status: Acute Assessment and Plan: Continue bronchodilators, antibiotics and mechanical ventilation Vent management per ICU (5) Pneumonia: Code(s): J18.9 - Pneumonia, unspecified organism Status: Acute Assessment and Plan: Continue Zosyn and doxycycline (6) Pulmonary hypertension: Code(s): I27.20 - Pulmonary hypertension, unspecified Status: Acute Assessment and Plan: Echocardiogram showed severe pulmonary hypertension, (7) HTN (hypertension): Code(s): I10 - Essential (primary) hypertension Status: Acute Assessment and Plan: History of essential hypertension, will restart home meds when able (8) CVA (cerebral vascular accident): Code(s): I63.9 - Cerebral infarction, unspecified Status: Acute Assessment and Plan: 10/18/2021 CT brain: Showed possible will acute infarct in the posterior left parietal lobe with age-related changing -neurology has been consulted Subjective Date/time seen: 10/19/21 10:35 Intubated Exam Narrative: General: Intubated and sedated HEENT: Pupils equal and reactive, sclera is clear, ETT in place Neck: Supple Respiratory: Coarse breath sounds bilaterally more at bases, decreased breath sounds at bases, adequate air entry, no wheezing Cardiac: S1-S2 is normal, sinus rhythm Abdomen: Soft, nontender, nondistended, hypoactive bowel sounds, obese Extremities: Bilateral lower extremity edema 2+ Neuro: Patient is sedated intubated Skin: No lesions noted Psych: Unable to assess Objective Data Vital Signs Vital Signs: Vital Signs - 24 hr 10/18/21 10:58 10/18/21 12:00 10/18/21 12:00 Temperature 96.9 F L Pulse Rate 69 69 69 Respiratory Rate 17 Blood Pressure 130/63 Pulse Oximetry 97 100 Oxygen Delivery Mechanical Ventilation Fraction of Inspired Oxygen 80 10/18/21 13:15 10/18/21 14:06 10/18/21 14:14 Temperature Pulse Rate 68 69 72 Respiratory Rate 21 H 19 Blood Pressure Pulse Oximetry 98 Oxygen Delivery Mechanical Ventilation Fraction of Inspired Oxygen 70 10/18/21 14:00 10/18/21 14:00 10/18/21 14:53 Temperature 96.6 F L Pulse Rate 68 68 73 Respiratory Rate 24 H Blood Pressure 129/61 Pulse Oximetry 98 92 Oxygen Delivery Mechanical Ventilation Fraction of Inspired Oxygen 100 10/18/21 12:00 10/18/21 12:00 10/18/21 15:00 Temperature Pulse Rate Respiratory Rate Blood Pressure Pulse Oximetry 100 Oxygen Del
[2021-10-19] MEDS: ALBUMIN HUMAN 25% 25 GM/100 ML 100 ML IVPB (10:39)
[2021-10-19 11:39] LABS: Glucose Point of Care 247 mg/dl (65-105)
--- NOTE | 2021-10-19 11:44 | PCNFU ---
Nutrition Follow-Up Complete: Inadequate Oral Intake as related to mechanical ventilation as evidenced by Tube feedings. Goal: Meet estimated nutritional needs Patient is progressing towards goal. We will continue current goal. Pt current nutrition is Nepro at 40 ml/hr over 22 hours. Last recorded weight is 110 kg, stable Bowel Motility:+Bm reported 10/19 Labs Reviewed: Glu 236, BUN 42, GFR 12, Na 133, K 3.3, Glu 236, Cr 3.8, Hct 27.5, Hgb 8.7 Meds Noted:Zosyn, Lantus, NovoLog, Protonix Skin: WNL Additional Notes:Patient remains on mechanical vent and tube feedings of Nepro at 40 ml/hr over 22 hours. Nursing reports patient is tolerating tube feedings. Goal rate is providing 1584 kcals/72 gms protein. Meeting 86% kcals needs/100% protein needs. Free water flush 30 ml q 4 hours. Plans for dialysis today. Agree with diet orders. Will monitor in ICU rounds and reassessing every Monday and Monday.
--- NOTE | 2021-10-19 12:37 | WPDNEURCNPN ---
Assessment and Plan Assessment and plan (1) CVA (cerebral vascular accident): Code(s): I63.9 - Cerebral infarction, unspecified Status: Acute Assessment and Plan: Patient s/p cardiac arrest. CT head showed small left parietal infarct. Could be secondary to arrest although would be unusual for it to be so focal. She does have other risk factors for stroke such as HTN and HLD. - Will need MRI brain w/o contrast once patient is stable - Obtain CTA head and neck if able - Start Aspirin 81mg daily - Continue Lipitor 20mg daily (2) Encephalopathy: Code(s): G93.40 - Encephalopathy, unspecified Status: Acute Assessment and Plan: Patient still encephalopathic post sedation. Likely multifactorial -- combination of hypoxic event, cooling, residual effect of sedation, infection. - Can obtain routine EEG if persistent concerns about mental status Consult date: 10/19/21 Time Seen: 14:01 Reason for consult: Stroke/AMS HPI: Pennie Buckley is a 71 year old female with a history of ESRD, DM, HTN who intially presented due to respiratory failure. Prior to admission she had shortness of breath for a few days which subsequently turned into respiratory failure. She had cardiac arrest and received CPR for 5 minutes before ROSC was achieved. She was treated for cardiogenic/sepsis shock and is now off pressors. She had an Echo that showed EF of 6-65%, diastolic dysfunction, and severe left atrial enlargement. She is receiving dialysis. CT head done yesterday showed small acute infarct in the left parietal lobe. She was cooled initially and has been passively rewarmed. She has also been off of propofol as of this morning. Per PICU team, she is not doing much during breaks off sedation. Review of Systems Review of Systems: ROS unobtainable: Yes unobtainable due to endotracheal tube PMFSH Past Medical History Medical History Anemia in CKD (chronic kidney disease) Arthritis CHF (congestive heart failure) Diabetes mellitus DVT (deep venous thrombosis) Fistula Fracture HLD (hyperlipidemia) HTN (hypertension) Hypoglycemic coma IBS (irritable bowel syndrome) Kidney stone On home oxygen therapy Peripheral neuropathy Pulmonary embolism Rectal polyp Renal disease Surgical History Surgical History H/O: hysterectomy History of History of cataract surgery Family History Family History Mother Family history of gout Hypertension Family history of elevated blood lipids Family history of arthritis Father Family history of kidney disease Other Family history of cardiovascular disease Family history of lung cancer Family history of malignant neoplasm of kidney Social History Social History Smoking status: Never smoker Alcohol intake: former Substance use: never Substance use type: does not use Gender identity (if verbalized by the patient): Female Spiritual care concerns: Yes (Yazdanism) Meds Home Medications and Allergies Home Medications Medication Instructions Recorded Confirmed Type atorvastatin 20 mg tablet 20 mg PO HS 02/20/19 10/18/21 History carvedilol 25 mg tablet 25 mg PO BID 02/20/19 10/18/21 History cholecalciferol (vitamin D3) 50 2,000 unit PO DAILY 02/20/19 10/18/21 History mcg (2,000 unit) tablet folic acid 1 mg tablet 1 mg PO DAILY 02/20/19 10/18/21 History insulin glargine 100 unit/mL 10 unit subcut HS 02/20/19 10/18/21 History subcutaneous solution (Lantus U-100 Insulin) albuterol sulfate 2.5 mg/0.5 mL 5 mg inhalation Q6HRT 30 days #120 02/25/19 10/18/21 Rx solution for nebulization ea nebulizers (Aeroneb Go Nebulizer) #1 ea 02/25/19 10/19/21 Rx acetaminophen 325 mg capsule 325 mg PO Q6H PRN Pain 05/16/19 10/18/21 History kevin
--- NOTE | 2021-10-19 14:42 | ECG_ITS ---
Measurements Intervals [place] Rate: 109 P: [place]: 0 QRS: -31 QRSD: 162 T: 112 QT: 393 QTc: 531 Interpretive Statements ATRIAL FIBRILLATION WITH RAPID VENTRICULAR RESPONSE MARKED LEFT AXIS DEVIATION [QRS AXIS < -30] LEFT BUNDLE BRANCH BLOCK [120+ ms QRS DURATION, 80+ ms Q/S IN V1/V2, 85+ ms R IN I/aVL/V5/V6] ABNORMAL ECG ATRIAL FIBRILLATION NOW PRESENT LEFT-AXIS DEVIATION NOW PRESENT Electronically Signed On 10-19-2021 15:17:38 CDT by Kalpesh Cali M.D.
[2021-10-19] MEDS: PROPOFOL IV EMULSION 100 ML 13.2 MG IV CONT (14:43)
[2021-10-19] MEDS: AMIODARONE 360 MG/D5W 200 ML 360 MG/200 ML BAG 33.33 MG IV CONT (16:04)
[2021-10-19] MEDS: AMIODARONE 150 MG/D5W 100 ML 150 MG/100 ML BAG 600 MG IV CONT (16:04)
[2021-10-19 16:07] LABS: Glucose Point of Care 220 mg/dl (65-105)
[2021-10-19 18:16] LABS: Vancomycin Random 21.8 ug/mL (10-20)
[2021-10-19] MEDS: MINERAL OIL/WHITE PETROLATUM OINTMENT 1 APPLIC EACH EYE (20:44)
[2021-10-19] MEDS: AMIODARONE 360 MG/D5W 200 ML 360 MG/200 ML BAG 16.67 MG IV CONT (21:43)
[2021-10-19 21:49] LABS: Glucose Point of Care 233 mg/dl (65-105)
[2021-10-20] VITALS (54 sets, daily range): BP systolic 91–157; BP diastolic 41–78; PULSE 76–141; RESP 20–36; TEMP 35–38.3; O2SAT 93–100
[2021-10-20] MEDS: PROPOFOL IV EMULSION 100 ML 13.2 MG IV CONT (00:12)
[2021-10-20] MEDS: INSULIN ASPART (*BKC) 100 UNITS/ML SUB-Q ×4 (00:17→21:28)
[2021-10-20 00:37] LABS: Glucose Point of Care 223 mg/dl (65-105)
[2021-10-20] MEDS: IPRATROPIUM BR 0.02% INH SOLN 0.5 MG/2.5 ML VIAL INHALATION ×4 (01:53→20:30)
[2021-10-20] MEDS: ALBUTEROL SULFATE NEB 2.5 MG/3 ML INH INHALATION ×4 (01:53→20:30)
[2021-10-20 04:49] LABS: Glucose Point of Care 254 mg/dl (65-105)
[2021-10-20 04:52] LABS: Hematocrit 23.7 % (37.0-47.0); Hemoglobin 7.4 g/dL (12.0-15.0); Mean Corpuscular HGB Conc 31.2 g/dl (32-36); Mean Corpuscular Volume 102.6 fl (80-100); Mean Platelet Volume 9.4 fl (7.4-10.4); Platelet Count Result 197 k/mm3 (150-375); Red Blood Count 2.31 M/mm3 (4.2-5.4); Red Cell Distribution Width 14.6 % (11.5-14.5); White Blood Count 11.4 K/mm3 (4.5-10.0)
[2021-10-20] MEDS: CENTRAL LINE FLUSH 10 ML IV PUSH ×2 (04:57→22:27)
[2021-10-20 05:08] LABS: Alanine Aminotransferase 59 U/L (6-35); Albumin Level 3.2 g/dL (3.5-5.1); Alkaline Phosphatase 91 U/L (38-126); Anion Gap 15 mmol/L (8-16); Aspartate Amino Transferase 56 U/L (14-36); Bilirubin,Total 0.7 mg/dL (0.2-1.3); Blood Urea Nitrogen 60 mg/dL (7-17); Calcium 8.5 mg/dL (8.4-10.2); Carbon Dioxide 28 mmol/L (22-30); Chloride 88 mmol/L (98-107); Estimated CRCL calculation 11 ml/min; Estimated Glomerular Filt Rate 8; Glucose 237 mg/dL (65-110); Magnesium 1.9 mg/dL (1.6-2.3); Phosphorus 4.8 mg/dL (2.5-4.5); Potassium 3.9 mmol/L (3.4-5.0); Sodium 131 mmol/L (137-145)
[2021-10-20 05:09] LABS: Alveolar/Arterial O2 Gradient 110.9 mmHg; Base Excess ABG 1.6 mEq/l (+/-2.0); Carboxyhemoglobin 0.3 % THb (0-2.0); Fractional Inspired Oxygen 30 %; HCO3 ABG 25.4 mEq/l (22.0-26.0); Methemoglobin ABG 0.2 %THb (0-1.5); Oxygen Content ABG 9.8 %vol (16.0-22.0); Oxygen Saturation ABG 92.6 % (95.0-100.0); Oxyhemoglobin 90.5 % THb (90.0-100.0); PCO2 ABG 36.3 mmHg (35.0-45.0); PO2 ABG 60.4 mmHg (80.0-100.0); PO2 FiO2 Ratio Arterial Blood 2.01 %; pH ABG 7.463 (7.350-7.450)
[2021-10-20 05:10] LABS: Device VENTILATOR; Site Drawn RIGHT BRACHIAL; Total Hemoglobin 7.6 g/dL (12.0-18.0)
[2021-10-20 05:11] LABS: Arterial Blood Gas PEEP 8 cmH2O; Arterial Blood Gas Tidal Volume 450 ml; Arterial Blood Gas Vent Mode CMV; Arterial Blood Gas Ventilator rate 20 /MIN
--- NOTE | 2021-10-20 07:07 | ECG_ITS ---
Measurements Intervals [place] Rate: 99 P: [place]: 0 QRS: -34 QRSD: 169 T: 92 QT: 412 QTc: 529 Interpretive Statements ATRIAL FIBRILLATION MARKED LEFT AXIS DEVIATION [QRS AXIS < -30] LEFT BUNDLE BRANCH BLOCK [120+ ms QRS DURATION, 80+ ms Q/S IN V1/V2, 85+ ms R IN I/aVL/V5/V6] ABNORMAL ECG Electronically Signed On 10-20-2021 10:49:51 CDT by Kalpesh Cali M.D.
--- NOTE | 2021-10-20 07:46 | PM.PNCARD ---
Progress Note: A&P Assessment and Plan (1) Shock: Code(s): R57.9 - Shock, unspecified Status: Acute Assessment and Plan: Resolved. Likely due to respiratory failure from pneumonia. Was on Levophed but no longer requiring it. 10/18/21 Echo: EF 60-65%, mild LVH, diastolic dysfunction with E/e' 33, severe LAE, mod MAC and mitral valve calcifications, mild MR, trace TR/PI, severe pulm hypertension with RVSP 61 mmHg. (2) Acute respiratory failure: Code(s): J96.00 - Acute respiratory failure, unspecified whether with hypoxia or hypercapnia Status: Acute Assessment and Plan: Ventilator managed by mechanic chief. (3) Pneumonia: Code(s): J18.9 - Pneumonia, unspecified organism Status: Acute Assessment and Plan: On antibiotics per hospitalist. (4) HTN (hypertension): Code(s): I10 - Essential (primary) hypertension Status: Acute Assessment and Plan: Stable but off her home BP medications. Resume when BP starts to go up starting with Carvedilol, Olmesartan then Amlodipine in that order. (5) HLD (hyperlipidemia): Code(s): E78.5 - Hyperlipidemia, unspecified Status: Acute Assessment and Plan: On Atorvastatin. (6) Diastolic dysfunction: Code(s): I51.89 - Other ill-defined heart diseases Status: Acute Assessment and Plan: Fluid level controlled with HD. (7) ESRD (end stage renal disease) on dialysis: Code(s): N18.6 - End stage renal disease; Z99.2 - Dependence on renal dialysis Status: Acute Assessment and Plan: Fluid level controlled with HD. (8) Atrial fibrillation: Code(s): I48.91 - Unspecified atrial fibrillation Status: Acute Assessment and Plan: New onset on 10/19/21. Probably due to respiratory status. [id number] 5. If no contraindication will start her on anticoagulation with Eliquis 5 mg BID (for weight >60kg and age<80). Decrease aspirin 81 mg daily. Subjective Date/time seen: 10/20/21 07:46 Sedated and on ventilator. Exam Const: Other: Sedated on ventilator Resp: Auscultation: no crackles, no rales, no rhonchi, no wheezes and diminished lung sounds Cardio: Jugular venous distension: no JVD Rate: tachycardic Rhythm: abnormal rhythm Heart sounds: no murmurs Peripheral pulses: dorsalis pedis present GI: GI Palp: No abdominal tenderness and Yes Soft to palpation Extrem: Right lower extremity: no edema Left lower extremity: no edema Objective Data Vital Signs Vital Signs: Vital Signs - 24 hr 10/19/21 08:00 10/19/21 08:56 10/19/21 09:00 Temperature Pulse Rate 71 91 91 Respiratory Rate 20 21 H Blood Pressure Pulse Oximetry 90 Oxygen Delivery Mechanical Ventilation Fraction of Inspired Oxygen 60 10/19/21 09:02 10/19/21 10:38 10/19/21 10:30 Temperature Pulse Rate 90 95 98 Respiratory Rate 21 H Blood Pressure 153/63 H Pulse Oximetry 94 Oxygen Delivery Mechanical Ventilation Fraction of Inspired Oxygen 50 10/19/21 10:15 10/19/21 08:00 10/19/21 08:00 Temperature 97.8 F Pulse Rate 99 78 Respiratory Rate 26 H Blood Pressure 118/99 H Pulse Oximetry 95 Oxygen Delivery Fraction of Inspired Oxygen 60 10/19/21 10:00 10/19/21 10:00 10/19/21 10:45 Temperature 97.9 F Pulse Rate 98 98 100 Respiratory Rate 25 H Blood Pressure 138/59 L 149/67 H Pulse Oximetry 94 Oxygen Delivery Fraction of Inspired Oxygen 10/19/21 11:00 10/19/21 11:15 10/19/21 11:30 Temperature Pulse Rate 101 H 102 H 100 Respiratory Rate Blood Pressure 144/67 H 133/34 L 139/42 L Pulse Oximetry Oxygen Delivery Fraction of Inspired Oxygen 10/19/21 11:42 10/19/21 11:45 10/19/21 10:30 Temperature 97.7 F Pulse Rate 100 101 H Respiratory Rate 22 H Blood Pressure 139/42 L 98/56 L Pulse Oximetry 92 Oxygen Delivery Fraction of Inspired Oxygen 60 10/19/21 12:45 10/19/21 12:00 10/19/21
--- NOTE | 2021-10-20 08:27 | PM.PNNEP ---
Progress Note: A&P Assessment and Plan (1) Shock: Code(s): R57.9 - Shock, unspecified Status: Acute Assessment and Plan: resolved- off Levophed. BP is stable and tolerating dialysis. 10/18/21 Echo: EF 60-65%, mild LVH, diastolic dysfunction with E/e' 33, severe LAE, mod MAC and mitral valve calcifications, mild MR, trace TR/PI, severe pulm hypertension with RVSP 61 mmHg. (2) Acute respiratory failure: Code(s): J96.00 - Acute respiratory failure, unspecified whether with hypoxia or hypercapnia Status: Acute Assessment and Plan: noted mention of severe pulm htn on echo- not aware of any eber- may be difficult to wean (3) Pneumonia: Code(s): J18.9 - Pneumonia, unspecified organism Status: Acute Assessment and Plan: abx IV DOXYCYLINE AND ZOSYN (4) HTN (hypertension): Code(s): I10 - Essential (primary) hypertension Status: Acute Assessment and Plan: PER HOSPITALIST PLAN IS TOResume when BP starts to go up starting with Carvedilol, Olmesartan then Amlodipine in that order.- I AM IN AGREEMENT IZZY GIVEN HER AFIB (5) HLD (hyperlipidemia): Code(s): E78.5 - Hyperlipidemia, unspecified Status: Acute Assessment and Plan: On Atorvastatin. (6) Diastolic dysfunction: Code(s): I51.89 - Other ill-defined heart diseases Status: Acute Assessment and Plan: Fluid level controlled with HD. (7) ESRD (end stage renal disease) on dialysis: Code(s): N18.6 - End stage renal disease; Z99.2 - Dependence on renal dialysis Status: Acute Assessment and Plan: Fluid level controlled with HD.- HAD EXTRA HD TX THURSDAY 10/19 FOR FLUID REMOVAL ONLY AND CONT HD MWF (8) Atrial fibrillation: Code(s): I48.91 - Unspecified atrial fibrillation Status: Acute Assessment and Plan: New onset on 10/19/21. Probably due to respiratory status. [id number] 5. If no contraindication will start her on anticoagulation with Eliquis 5 mg BID (for weight >60kg and age<80). Decrease aspirin 81 mg daily. - I AM NOT AWARE OF ANY PREVIOUS AFIB BEFORE. (9) Multinodular goiter: Code(s): E04.2 - Nontoxic multinodular goiter Status: Acute Assessment and Plan: NOTED REC FROM RADIOLOGIST WHEN SHE HAD THE CTA.- TSH ON 10/18 GOOD AT 2.1 (10) Pleural effusion in other conditions classified elsewhere: Code(s): J91.8 - Pleural effusion in other conditions classified elsewhere Status: Acute Assessment and Plan: TX CHF AND AIM FOR EUVOLEMIC STATE Plan REVIEWED-CTA 10/19-1. Stable age-indeterminate infarct in left occipital lobe. 2. 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 3. Moderate nonspecific cerebral white matter disease, which likely represents chronic small vessel ischemic disease. 4. No aneurysm or significant intracranial arterial stenosis. 5. 0% stenosis of the proximal internal carotid arteries relative to normal distal artery lumen diameters (NASCET criteria). 6. Moderate-sized right and small left pleural effusions. 7. Diffuse lung disease, consistent with pulmonary edema versus pneumonia. 8. Mild mediastinal lymphadenopathy, likely reactive. 9. Multinodular goiter. Consider outpatient follow-up evaluation with ultrasound if clinically indicated given the patient's comorbidities Additional Plan SEE ABOVE- HD TODAY. AIM TO KEEP K AROUND R. Subjective Date/time seen: 10/20/21 08:28 Review of Systems Review of Systems: remains intubated and on less vent support- f down 60 to 40% and peep down to 8. events of yesterday noted with rapid afib - now on Amiodarone gtt. I do not recall her having to be cardioverted or having severe attacks of afib in the past. tolerating TF'S. Unfortunately not neurological as responsive as hoped. Exam Resp: Other: coarse bs throughout without rales or wheezes Cardio: Rhythm: regular rhythm Other: no g/m heard GI: Other: nabs x
[2021-10-20 08:44] LABS: Glucose Point of Care 224 mg/dl (65-105)
[2021-10-20 09:00] LABS: Immature Reticulocyte Fraction 22.3 % (3.0-15.9); Reticulocyte Percent 2.38 % (0.7-4.3); Reticulocytes Absolute 0.06 B/L (32.2-175.7)
[2021-10-20] MEDS: ASPIRIN 81 MG ENTERIC TABLET PO (09:39)
[2021-10-20] MEDS: APIXABAN 5 MG TABLET PO (09:40)
[2021-10-20] MEDS: INSULIN GLARGINE (*BKC) 100 UNITS/ML 15 UNITS SUB-Q (09:40)
[2021-10-20] MEDS: ATORVASTATIN 20 MG TABLET PO (09:40)
[2021-10-20] MEDS: DOXYCYCLINE 100 MG/NS 100 ML 100 MG/100 ML BAG IVPB ×2 (09:41→21:50)
[2021-10-20] MEDS: MINERAL OIL/WHITE PETROLATUM OINTMENT 1 APPLIC EACH EYE ×2 (09:41→21:29)
[2021-10-20] MEDS: PANTOPRAZOLE SODIUM IV 40 MG VIAL IV PUSH (09:41)
[2021-10-20] MEDS: PROPOFOL IV EMULSION 100 ML 6.6 MG IV CONT (09:50)
[2021-10-20] MEDS: AMIODARONE 360 MG/D5W 200 ML 360 MG/200 ML BAG 16.67 MG IV CONT (10:02)
[2021-10-20 10:08] LABS: Lactate Dehydrogenase 231 U/L (120-246)
[2021-10-20 10:18] LABS: Iron 54 ug/dL (37-170)
[2021-10-20 10:28] LABS: Percent Iron Saturation 33 % (20-50)
--- NOTE | 2021-10-20 10:55 | PCFNICU ---
ICU Rounding Note: Pt current nutrition is Nepro at 40 ml/hr over 22 hours. Last recorded weight is 110.2 kg, stable Bowel Motility:+Bm reported 10/19 Labs Reviewed:PO4 4.8,Na 131, Hct 23.7, Hgb 7.4, BUN 60, Cr 5.10 Meds Noted:Eliquis,Zosyn, Lantus, NovoLog, Protonix, Propofol 6.6 ml/hr Skin: WNL Additional Notes: Patient remains on mechanical vent. Tolerating tube feedings of Nepro at 40 ml/hr. Propofol infusion at 6.6 ml/hr providing an additional 174 kcals. Plans for Dialysis today. Agree with diet orders. Following daily in ICU rounds. Will monitor every Monday and Monday.
[2021-10-20 11:14] LABS: Folic Acid 14.9 ng/mL (2.76->20)
--- NOTE | 2021-10-20 12:13 | WPDINTPN ---
Progress Note: A&P Assessment and Plan (1) Cardiac arrest: Code(s): I46.9 - Cardiac arrest, cause unspecified Status: Acute Assessment and Plan: Cardiac arrest with CPR and 1 round of epi and vasopressin with ROSC -likely cause of cardiac arrest was respiratory failure, hypoxia -troponins have plateaued, no acute coronary syndrome as a cause of cardiac arrest per Cardiology -patient on target temperature management at 36? centigrade a 24 hours -will passively rewarm -currently on propofol infusion for sedation daily sedation vacation to assess mental status -patient will require EEG (2) Acute respiratory failure: Code(s): J96.00 - Acute respiratory failure, unspecified whether with hypoxia or hypercapnia Status: Acute Assessment and Plan: Acute respiratory failure likely related to pulmonary edema, pneumonia, congestive heart failure pulmonary hypertension -she presented the outside hospital with shortness of breath and hypoxia for few days, patient was being transferred to [facility] in an ambulance which she rested secondary to hypoxic respiratory failure - patient intubated on 10/18/2021 -chest x-ray 10/20: Persistent opacities in the bilateral mid and lower lung zones consistent with atelectasis, pneumonia, pulmonary edema or some combination thereof. -currently on a PEEP of 8 and 30% FiO2, will increase FiO2 to maintain O2 sats greater than 90% -sedated with propofol infusion for sedation, daily sedation vacation to assess mental status (3) Congestive heart failure: Qualifiers: Heart failure chronicity: acute on chronic Heart failure type: unspecified Qualified Code(s): I50.9 - Heart failure, unspecified Code(s): I50.9 - Heart failure, unspecified Status: Acute Assessment and Plan: 10/18/2021 Echocardiogram: LV systolic function is 60-65%, LV diastolic function is abnormal, left atrial chamber severely enlarged, mild aortic valve sclerosis, mild mitral valve regurg, severe pulmonary hypertension with RVSP of 61 mmHg -cardiology following the patient -will restart home meds when able (4) COPD (chronic obstructive pulmonary disease): Code(s): J44.9 - Chronic obstructive pulmonary disease, unspecified Status: Acute Assessment and Plan: Continue bronchodilators, antibiotics and mechanical ventilation (5) Pneumonia: Code(s): J18.9 - Pneumonia, unspecified organism Status: Acute Assessment and Plan: Chest x-ray with possible diffuse lung disease on admission -status post dialysis with improvement in opacities on the chest x-ray this morning. -patient has been started on vancomycin doxycycline and Zosyn on 10/18/2021, will continue continue -10/18: Sputum culture growing gram-positive cocci in clusters -MRSA screen is negative (6) Pulmonary hypertension: Code(s): I27.20 - Pulmonary hypertension, unspecified Status: Acute Assessment and Plan: Echocardiogram showed severe pulmonary hypertension, (7) HTN (hypertension): Code(s): I10 - Essential (primary) hypertension Status: Acute Assessment and Plan: History of essential hypertension, hold antihypertensives at this time as patient small blood pressures are borderline (8) CVA (cerebral vascular accident): Code(s): I63.9 - Cerebral infarction, unspecified Status: Acute Assessment and Plan: 10/18/2021 CT brain: Showed possible will acute infarct in the posterior left parietal lobe with age-related changing -have discontinued sedation to evaluate mentation -neurology recommended CTA, -10/18/2021 CT brain showed possible small acute infarct in the posterior left parietal lobe, age-related findings -appreciate Neurology evaluation, recommended CTA head and neck -10/19 head CTA: 1. Stable age-indeterminate infarct in left occipital lobe. 2. 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 3. Moderate nonspecifi
[2021-10-20 12:53] LABS: Glucose Point of Care 196 mg/dl (65-105)
--- NOTE | 2021-10-20 15:11 | PM.IMPN ---
Progress Note: A&P Assessment and Plan (1) Cardiac arrest: Code(s): I46.9 - Cardiac arrest, cause unspecified Status: Acute Assessment and Plan: Cardiac arrest with CPR and 1 round of epi and vasopressin with ROSC -likely cause of cardiac arrest was respiratory failure, hypoxia -cardiology following. No plan for intervention at this time. -continue respiratory support and ventilatory management per ICU (2) Acute respiratory failure: Code(s): J96.00 - Acute respiratory failure, unspecified whether with hypoxia or hypercapnia Status: Acute Assessment and Plan: Acute respiratory failure likely related to pulmonary edema, pneumonia Continue respiratory support and also antibiotics. Patient is currently on doxycycline and Zosyn (3) Congestive heart failure: Qualifiers: Heart failure chronicity: acute on chronic Heart failure type: unspecified Qualified Code(s): I50.9 - Heart failure, unspecified Code(s): I50.9 - Heart failure, unspecified Status: Acute Assessment and Plan: 10/18/2021 Echocardiogram: LV systolic function is 60-65%, LV diastolic function is abnormal, left atrial chamber severely enlarged, mild aortic valve sclerosis, mild mitral valve regurg, severe pulmonary hypertension with RVSP of 61 mmHg -cardiology following (4) COPD (chronic obstructive pulmonary disease): Code(s): J44.9 - Chronic obstructive pulmonary disease, unspecified Status: Acute Assessment and Plan: Continue bronchodilators, antibiotics and mechanical ventilation Vent management per ICU (5) Pneumonia: Code(s): J18.9 - Pneumonia, unspecified organism Status: Acute Assessment and Plan: Continue Zosyn and doxycycline (6) Pulmonary hypertension: Code(s): I27.20 - Pulmonary hypertension, unspecified Status: Acute Assessment and Plan: Echocardiogram showed severe pulmonary hypertension, (7) HTN (hypertension): Code(s): I10 - Essential (primary) hypertension Status: Acute Assessment and Plan: History of essential hypertension, will restart home meds when able (8) CVA (cerebral vascular accident): Code(s): I63.9 - Cerebral infarction, unspecified Status: Acute Assessment and Plan: 10/18/2021 CT brain: Showed possible will acute infarct in the posterior left parietal lobe with age-related changing -neurology has been consulted Additional Plan 10/20/2021 interval history: patient with respirotry failure on vent she went to cardiac arrest ACLS was called CPR started patient received 1x epi and vasopressin with ROSC, suspect 2/2 CHF and pneumonia patient is being treated with Zosy, doxycyline and vancomycin, patient hypotension shock, off levophed and BP is now stable, will have HD, currently on vent, unable to provide any ROS, patient is seen by newspaper carriers supervisor, neuroscience specialist and videotape editor apprecite. Subjective Date/time seen: 10/20/21 15:11 10/20/2021 interval history: patient with respirotry failure on vent she went to cardiac arrest ACLS was called CPR started patient received 1x epi and vasopressin with ROSC, suspect 2/2 CHF and pneumonia patient is being treated with Zosy, doxycyline and vancomycin, patient hypotension shock, off levophed and BP is now stable, will have HD, currently on vent, unable to provide any ROS, patient is seen by newspaper carriers supervisor, neuroscience specialist and videotape editor apprecite. Review of Systems Review of Systems: ROS unobtainable: Yes unobtainable due to endotracheal tube, unobtainable due to medical condition and unobtainable due to mental status Exam Narrative: moderately obese Patient is comfortable, NAD HEENT: ET tube in place LUNGS: normal respiratory effort ABD: distended Lower extremities: no edema SKIN: nonjaundiced Neuro: grossly intact. Objective Data Vital Signs Vital Signs: Vital Signs - 24 hr 10/19/21 15:28 10/19/21 16:04 10/19/21 16:04
[2021-10-20] MEDS: ALBUMIN HUMAN 25% 25 GM/100 ML 100 ML IVPB ×2 (15:36→21:42)
[2021-10-20 17:36] LABS: Glucose Point of Care 161 mg/dl (65-105)
[2021-10-20 20:01] LABS: IFOB Positive Control Positive; Immunochemical Fecal Occult Bl Positive (N)
--- NOTE | 2021-10-20 21:08 | ECG_ITS ---
Measurements Intervals [place] Rate: 141 P: -7 NV: 172 QRS: -22 QRSD: 154 T: 118 QT: 346 QTc: 531 Interpretive Statements SINUS TACHYCARDIA, POSSIBLE ATRIAL FLUTTER LEFT BUNDLE BRANCH BLOCK [120+ ms QRS DURATION, 80+ ms Q/S IN V1/V2, 85+ ms R IN I/aVL/V5/V6] ABNORMAL ECG COMPARED TO ECG 10/20/2021 09:47:42 NO SIGNIFICANT CHANGES Electronically Signed On 10-21-2021 9:36:14 CDT by Kalpesh Cali M.D.
[2021-10-20] MEDS: AMIODARONE 150 MG/D5W 100 ML 150 MG/100 ML BAG 600 MG IV CONT (21:30)
[2021-10-20] MEDS: AMIODARONE 360 MG/D5W 200 ML 360 MG/200 ML BAG 33.33 MG IV CONT (21:45)
[2021-10-20 21:54] LABS: Glucose Point of Care 277 mg/dl (65-105)
--- NOTE | 2021-10-20 22:23 | ECG_ITS ---
Measurements Intervals [place] Rate: 92 P: 41 OR: 187 QRS: -24 QRSD: 172 T: 115 QT: 422 QTc: 524 Interpretive Statements SINUS RHYTHM WITH VENTRICULAR PACING ABNORMAL ECG COMPARED TO ECG 10/20/2021 20:14:19 SINUS RHYTHM NOW PRESENT Electronically Signed On 10-21-2021 9:38:04 CDT by Kalpesh Cali M.D.
[2021-10-21] VITALS (47 sets, daily range): BP systolic 108–142; BP diastolic 40–60; PULSE 70–94; RESP 17–30; TEMP 37.6–38.6; O2SAT 86–100
[2021-10-21] MEDS: NOREPINEPHRINE 8 MG/D5W 250 ML 8 MG/250 ML BAG 9.38 MG IV CONT (00:09)
[2021-10-21] MEDS: INSULIN ASPART (*BKC) 100 UNITS/ML SUB-Q ×4 (00:21→11:55)
[2021-10-21 00:50] LABS: Glucose Point of Care 319 mg/dl (65-105)
[2021-10-21] MEDS: ALBUTEROL SULFATE NEB 2.5 MG/3 ML INH INHALATION ×4 (02:05→21:00)
[2021-10-21] MEDS: IPRATROPIUM BR 0.02% INH SOLN 0.5 MG/2.5 ML VIAL INHALATION ×4 (02:05→21:01)
[2021-10-21] MEDS: AMIODARONE 360 MG/D5W 200 ML 360 MG/200 ML BAG 16.67 MG IV CONT ×2 (03:50→16:06)
[2021-10-21 04:33] LABS: Glucose Point of Care 295 mg/dl (65-105)
[2021-10-21] MEDS: CENTRAL LINE FLUSH 10 ML IV PUSH ×4 (05:47→20:24)
[2021-10-21 05:51] LABS: Alveolar/Arterial O2 Gradient 255.5 mmHg; Base Excess ABG 6.9 mEq/l (+/-2.0); Carboxyhemoglobin 0.3 % THb (0-2.0); Fractional Inspired Oxygen 50 %; HCO3 ABG 30.3 mEq/l (22.0-26.0); Methemoglobin ABG 0.1 %THb (0-1.5); Oxygen Content ABG 11.5 %vol (16.0-22.0); Oxygen Saturation ABG 92.6 % (95.0-100.0); Oxyhemoglobin 89.4 % THb (90.0-100.0); PCO2 ABG 38.3 mmHg (35.0-45.0); PO2 ABG 57.9 mmHg (80.0-100.0); PO2 FiO2 Ratio Arterial Blood 1.16 %; Reduced Hemoglobin 10.2 %THb (0-5.0); Total Hemoglobin 9.1 g/dL (12.0-18.0)
[2021-10-21 05:52] LABS: Mean Corpuscular HGB Conc 33.3 g/dl (32-36); Mean Corpuscular Hemoglobin 32.4 pg (26-34); Mean Corpuscular Volume 97.2 fl (80-100); Mean Platelet Volume 9.6 fl (7.4-10.4); Platelet Count Result 222 k/mm3 (150-375); Red Blood Count 2.47 M/mm3 (4.2-5.4); Red Cell Distribution Width 14.6 % (11.5-14.5); White Blood Count 15.9 K/mm3 (4.5-10.0)
[2021-10-21 05:54] LABS: Arterial Blood Gas Ventilator rate 20 /MIN; Device VENTILATOR; Modified Allen's Test Pass; Site Drawn RIGHT BRACHIAL; pH ABG 7.516 (7.350-7.450)
[2021-10-21 05:55] LABS: Arterial Blood Gas PEEP 8 cmH2O; Arterial Blood Gas Tidal Volume 450 ml; Arterial Blood Gas Vent Mode CMV
[2021-10-21 06:07] LABS: Alanine Aminotransferase 83 U/L (6-35); Albumin Level 3.9 g/dL (3.5-5.1); Alkaline Phosphatase 98 U/L (38-126); Anion Gap 12 mmol/L (8-16); Aspartate Amino Transferase 84 U/L (14-36); Bilirubin,Total 0.7 mg/dL (0.2-1.3); Blood Urea Nitrogen 38 mg/dL (7-17); Calcium 8.8 mg/dL (8.4-10.2); Carbon Dioxide 34 mmol/L (22-30); Chloride 87 mmol/L (98-107); Estimated CRCL calculation 17 ml/min; Estimated Glomerular Filt Rate 14; Glucose 258 mg/dL (65-110); Magnesium 1.9 mg/dL (1.6-2.3); Phosphorus 3.4 mg/dL (2.5-4.5); Potassium 3.5 mmol/L (3.4-5.0); Sodium 133 mmol/L (137-145)
[2021-10-21] MEDS: PROPOFOL IV EMULSION 100 ML 3.3 MG IV CONT (06:21)
[2021-10-21 07:38] LABS: Glucose Point of Care 221 mg/dl (65-105)
--- NOTE | 2021-10-21 08:05 | PM.PNCARD ---
Progress Note: A&P Assessment and Plan (1) Shock: Code(s): R57.9 - Shock, unspecified Status: Acute Assessment and Plan: Resolved. Likely due to respiratory failure from pneumonia. Was on Levophed but no longer requiring it. 10/18/21 Echo: EF 60-65%, mild LVH, diastolic dysfunction with E/e' 33, severe LAE, mod MAC and mitral valve calcifications, mild MR, trace TR/PI, severe pulm hypertension with RVSP 61 mmHg. (2) Acute respiratory failure: Code(s): J96.00 - Acute respiratory failure, unspecified whether with hypoxia or hypercapnia Status: Acute Assessment and Plan: Ventilator managed by coding and reimbursement specialist. (3) Pneumonia: Code(s): J18.9 - Pneumonia, unspecified organism Status: Acute Assessment and Plan: On antibiotics per hospitalist. (4) HTN (hypertension): Code(s): I10 - Essential (primary) hypertension Status: Acute Assessment and Plan: Stable but off her home BP medications. Resume when BP starts to go up starting with Carvedilol, Olmesartan then Amlodipine in that order. (5) HLD (hyperlipidemia): Code(s): E78.5 - Hyperlipidemia, unspecified Status: Acute Assessment and Plan: On Atorvastatin. (6) Diastolic dysfunction: Code(s): I51.89 - Other ill-defined heart diseases Status: Acute Assessment and Plan: Fluid level controlled with HD. (7) ESRD (end stage renal disease) on dialysis: Code(s): N18.6 - End stage renal disease; Z99.2 - Dependence on renal dialysis Status: Acute Assessment and Plan: Fluid level controlled with HD. (8) Atrial fibrillation: Code(s): I48.91 - Unspecified atrial fibrillation Status: Acute Assessment and Plan: Back in sinus rhythm. New onset on 10/19/21, then had atrial tachycardia/flutter on 10/20/21. Probably due to respiratory status. [id number] 5. If no contraindication will start her on anticoagulation with Eliquis 5 mg BID (for weight >60kg and age<80). Decreased aspirin 81 mg daily. Continue Amiodarone drip. Eliquis on hold due to positive hemoccult and worsening anemia. Consider GI consult. Subjective Date/time seen: 10/21/21 08:05 Patient sedated and on ventilator. Exam Const: Other: Sedated on ventilator Resp: Auscultation: no crackles, no rales, no rhonchi, no wheezes and diminished lung sounds Cardio: Jugular venous distension: no JVD Rate: regular rate Rhythm: regular rhythm Heart sounds: no murmurs Peripheral pulses: dorsalis pedis present GI: GI Palp: No abdominal tenderness and Yes Soft to palpation Extrem: Right lower extremity: no edema Left lower extremity: no edema Objective Data Vital Signs Vital Signs: Vital Signs - 24 hr 10/20/21 08:59 10/20/21 09:00 10/20/21 09:13 Temperature Pulse Rate 105 H 104 H 112 H Respiratory Rate 25 H 24 H Blood Pressure Pulse Oximetry 96 Oxygen Delivery Mechanical Ventilation Fraction of Inspired Oxygen 40 10/20/21 09:50 10/20/21 10:02 10/20/21 10:00 Temperature 100.3 F H Pulse Rate 102 H 103 H 102 H Respiratory Rate 36 H 20 Blood Pressure 124/55 L 129/45 L Pulse Oximetry 100 Oxygen Delivery Fraction of Inspired Oxygen 10/20/21 11:55 10/20/21 10:00 10/20/21 12:00 Temperature Pulse Rate 100 101 H 101 H Respiratory Rate Blood Pressure Pulse Oximetry 96 Oxygen Delivery Mechanical Ventilation Fraction of Inspired Oxygen 40 10/20/21 12:00 10/20/21 13:00 10/20/21 14:49 Temperature 100.1 F H 100.1 F H Pulse Rate 101 H 98 103 H Respiratory Rate 20 20 20 Blood Pressure 107/61 107/61 Pulse Oximetry 97 98 Oxygen Delivery Fraction of Inspired Oxygen 10/20/21 14:50 10/20/21 14:00 10/20/21 15:05 Temperature 100.1 F H Pulse Rate 103 H 99 102 H Respiratory Rate 20 20 Blood Pressure 119/50 L Pulse Oximetry 96 96 Oxygen Delivery Mechanical Ventilation Fraction of Inspired Oxygen 40
--- NOTE | 2021-10-21 08:40 | P.NEURO_ITS ---
Neurology EEG Report General Information Date of Study: 10/21/21 TEST Routine EEG DIAGNOSIS Cardiac Arrest CONDITION OF RECORDING Unresponsive EEG NUMBER [id number] CLINICAL HISTORY Patient is on vent following cardiac arrest. Is on no sedation and remains unresponsive. EEG DESCRIPTION The background rhythm is slowed in the range of 2-3 hrtz. There is no anterior- posterior gradient or posterior dominant rhythm. No sleep architecture is noted during this study. There is no significant change in EEG activity when noxious stimulus is administered. There are frequent generalized triphasic waves. There are no epileptiform discharges or electrographic seizures noted during the recording. IMPRESSION This is an abnormal EEG. Diffuse slowing with triphasic waves may be seen in the setting of metabolic encephalopathy. There are no electrographic seizures or epileptiform features identified. Clinical correlation is recommended.
[2021-10-21 09:28] LABS: SARS-CoV-2 RNA PCR Negative
[2021-10-21] MEDS: ASPIRIN 81 MG ENTERIC TABLET PO (09:41)
[2021-10-21] MEDS: ATORVASTATIN 20 MG TABLET PO (09:41)
[2021-10-21] MEDS: DOXYCYCLINE 100 MG/NS 100 ML 100 MG/100 ML BAG IVPB ×2 (09:48→20:25)
[2021-10-21] MEDS: INSULIN GLARGINE (*BKC) 100 UNITS/ML 30 UNITS SUB-Q (09:48)
[2021-10-21] MEDS: PANTOPRAZOLE SODIUM IV 40 MG VIAL IV PUSH ×2 (09:48→20:26)
[2021-10-21] MEDS: ACETAMINOPHEN ELIXIR 325 MG/10.15 ML UDC 650 MG PO (09:49)
[2021-10-21 11:56] LABS: Glucose Point of Care 210 mg/dl (65-105)
--- NOTE | 2021-10-21 11:57 | PCFNICU ---
ICU Rounding Note: Pt current nutrition is Nepro at 20 ml/hr. Nutrition recommendation: goal rate of tube feeding at 40 ml/hr Last recorded weight is 107.5 kg, down from 110 kg on admit. Bowel Motility:+Bm reported 10/21 Labs Reviewed:Glu 258,BUN 38, GFR 14, Cr 3.3,Na 133, Hct 24.0,Hgb 8.0 Meds Noted:Eliquis,Zosyn, Lantus, NovoLog, Protonix, Propofol 3.3 ml/hr=87 kcals, Levophed. Skin: WNL Additional Notes: Patient remains on mechanical vent and tube feedings of Nepro. Patient tube feedings held over night due to emesis. Tube feedings restarted this morning at 20 ml/hr . Propofol infusion at 3.3 ml/hr providing an additional 87 kcals. Fever noted. EEG has been ordered. Following daily in ICU rounds. Will monitor every Monday and Monday.
--- NOTE | 2021-10-21 12:21 | WPDINTPN ---
Progress Note: A&P Assessment and Plan (1) Encephalopathy: Code(s): G93.40 - Encephalopathy, unspecified Status: Acute Assessment and Plan: Encephalopathy could be multifactorial, cardiac arrest, anoxic injury, metabolic causes, infection -10/21 EEG showed diffuse slowing with triphasic waves may be seen in setting of metabolic encephalopathy, there were no epileptiform discharges. -neurology following the patient -patient gets sedation vacation but starts using her abdominal muscles to breathe due to her pneumonia. (2) Cardiac arrest: Code(s): I46.9 - Cardiac arrest, cause unspecified Status: Acute Assessment and Plan: Cardiac arrest with CPR and 1 round of epi and vasopressin with ROSC -likely cause of cardiac arrest was respiratory failure, hypoxia -troponins have plateaued, no acute coronary syndrome as a cause of cardiac arrest per Cardiology -status post target temperature management post cardiac arrest -currently on propofol infusion for sedation daily sedation vacation to assess mental status -encephalopathy persists, EEG is above (3) Acute respiratory failure: Code(s): J96.00 - Acute respiratory failure, unspecified whether with hypoxia or hypercapnia Status: Acute Assessment and Plan: Acute respiratory failure likely related to pulmonary edema, pneumonia, congestive heart failure pulmonary hypertension -she presented the outside hospital with shortness of breath and hypoxia for few days, patient was being transferred to [facility] in an ambulance which she rested secondary to hypoxic respiratory failure - patient intubated on 10/18/2021 -chest x-ray 10/21: Persistent diffuse patchy bilateral lung disease which could represent pneumonia, pulmonary edema or some combination thereof. -ABGs reviewed, ventilator adjusted to increase PEEP to 10, currently on 60% FiO2 -sedated with propofol infusion for sedation, daily sedation vacation to assess mental status -discussed with pulmonology, no bronchoscopy, he will order a viral panel -continue vancomycin 10/18, doxycycline 10/18, Zosyn will be switched to imipenem 10/2110/21/2021 CTA chest PE protocol along with abdominal and pelvis 1. No pulmonary embolus identified, sensitivity limited by respiratory motion artifact. 2. Diffuse lung disease, consistent with pulmonary edema and/or pneumonia. 3. Gallbladder distention and chronic wall thickening of the gallbladder which could reflect acute versus chronic cholecystitis. 4. Indeterminate left kidney mass which may be benign or malignant, nonemergent follow-up is recommended. (4) Shock: Code(s): R57.9 - Shock, unspecified Status: Acute Assessment and Plan: Patient febrile, AFib RVR, dropped her pressures, started on Levophed -maintain mean arterial pressures > 65 mm Hg adequate end organ perfusion -continue antibiotics as above -obtain blood cultures -blood pressure is much improved this morning, patient most likely will, off the Levophed (5) Congestive heart failure: Qualifiers: Heart failure chronicity: acute on chronic Heart failure type: unspecified Qualified Code(s): I50.9 - Heart failure, unspecified Code(s): I50.9 - Heart failure, unspecified Status: Acute Assessment and Plan: 10/18/2021 Echocardiogram: LV systolic function is 60-65%, LV diastolic function is abnormal, left atrial chamber severely enlarged, mild aortic valve sclerosis, mild mitral valve regurg, severe pulmonary hypertension with RVSP of 61 mmHg -cardiology following the patient -hold all antihypertensives as patient is on Levophed (6) COPD (chronic obstructive pulmonary disease): Code(s): J44.9 - Chronic obstructive pulmonary disease, unspecified Status: Acute Assessment and Plan: Continue bronchodilators, antibiotics and mechanical ventilation (7) Pneumonia: Code(s): J18.9 - Pneumonia, unspecified organism Status: Acute
--- NOTE | 2021-10-21 12:59 | PM.PNNEP ---
Progress Note: A&P Assessment and Plan (1) Pleural effusion in other conditions classified elsewhere: Code(s): J91.8 - Pleural effusion in other conditions classified elsewhere Status: Acute (2) Multinodular goiter: Code(s): E04.2 - Nontoxic multinodular goiter Status: Acute (3) Atrial fibrillation: Code(s): I48.91 - Unspecified atrial fibrillation Status: Acute (4) Pulmonary hypertension: Code(s): I27.20 - Pulmonary hypertension, unspecified Status: Acute (5) Anemia in CKD (chronic kidney disease): Code(s): N18.9 - Chronic kidney disease, unspecified; D63.1 - Anemia in chronic kidney disease Status: Acute (6) Diastolic congestive heart failure: Code(s): I50.30 - Unspecified diastolic (congestive) heart failure Status: Acute (7) Pneumonia: Code(s): J18.9 - Pneumonia, unspecified organism Status: Acute (8) Encephalopathy: Code(s): G93.40 - Encephalopathy, unspecified Status: Acute (9) ESRD (end stage renal disease) on dialysis: Code(s): N18.6 - End stage renal disease; Z99.2 - Dependence on renal dialysis Status: Acute (10) Obesity: Code(s): E66.9 - Obesity, unspecified Status: Acute (11) Diabetes mellitus: Code(s): E11.9 - Type 2 diabetes mellitus without complications Status: Acute Plan 1. esrd on hd mwf 2. resp failure - on ventilator and withi ntensivist support/ care 3. afib with rvr- amiodarone and Eliquis 4. pneumonia 5. dm2 6. obesity 7. ? of small acute stroke- not seen on CTA vs CT SCAN 8. s/p shock 9. anemia of ckd/ esrd Additional Plan cont with hd mwf Subjective Date/time seen: 10/21/21 06:59 pt did well with dialysis yesterday. remains intubated Objective Data Vital Signs Vital Signs: Vital Signs - 24 hr 10/20/21 13:00 10/20/21 14:49 10/20/21 14:50 Temperature 37.8 C H Pulse Rate 98 103 H 103 H Respiratory Rate 20 20 Blood Pressure 107/61 Pulse Oximetry 98 96 Oxygen Delivery Mechanical Ventilation Fraction of Inspired Oxygen 40 10/20/21 14:00 10/20/21 15:05 10/20/21 15:15 Temperature 37.8 C H Pulse Rate 99 102 H 103 H Respiratory Rate 20 20 Blood Pressure 119/50 L 111/72 Pulse Oximetry 96 Oxygen Delivery Fraction of Inspired Oxygen 10/20/21 15:00 10/20/21 16:30 10/20/21 15:30 Temperature 37.8 C H Pulse Rate 98 105 H 105 H Respiratory Rate 20 Blood Pressure 97/63 L 110/59 L 111/65 Pulse Oximetry 99 Oxygen Delivery Fraction of Inspired Oxygen 10/20/21 15:45 10/20/21 16:00 10/20/21 16:15 Temperature Pulse Rate 105 H 106 H 99 Respiratory Rate Blood Pressure 108/46 L 121/77 105/68 Pulse Oximetry Oxygen Delivery Fraction of Inspired Oxygen 10/20/21 16:00 10/20/21 16:00 10/20/21 14:00 Temperature Pulse Rate 104 H Respiratory Rate Blood Pressure Pulse Oximetry 98 Oxygen Delivery Mechanical Ventilation Fraction of Inspired Oxygen 40 40 10/20/21 16:00 10/20/21 18:00 10/20/21 16:45 Temperature Pulse Rate 101 H 108 H 109 H Respiratory Rate Blood Pressure 116/74 Pulse Oximetry Oxygen Delivery Fraction of Inspired Oxygen 10/20/21 17:15 10/20/21 16:00 10/20/21 17:00 Temperature 37.3 C Pulse Rate 114 H 76 107 H Respiratory Rate 26 H Blood Pressure 105/68 95/54 L Pulse Oximetry 98 98 Oxygen Delivery Mechanical Ventilation Fraction of Inspired Oxygen 40 10/20/21 18:30 10/20/21 15:00 10/20/21 17:15 Temperature Pulse Rate 105 H 114 H Respiratory Rate Blood Pressure 108/60 92/76 L Pulse Oximetry Oxygen Delivery Fraction of Inspired Oxygen 40 10/20/21 17:30 10/20/21 17:45 10/20/21 18:00 Temperature Pulse Rate 105 H 116 H 103 H Respiratory Rate Blood Pressure 92/64 L 115/48 L 129/75 Pulse Oximetry Oxygen Delivery Fraction of Inspired Oxygen 10/20/21 18:15 10/20/21 18
[2021-10-21 16:12] LABS: Glucose Point of Care 181 mg/dl (65-105)
--- NOTE | 2021-10-21 16:15 | PC.NURSE ---
updated patient's status to daughter Wendy; she relayed to me that her and her brothers would like to move forward with the trach and peg route. Will update Dr. Puente
[2021-10-21 16:51] LABS: Glucose Point of Care 176 mg/dl (65-105)
[2021-10-21 20:17] LABS: Glucose Point of Care 196 mg/dl (65-105)
[2021-10-21] MEDS: MINERAL OIL/WHITE PETROLATUM OINTMENT 1 APPLIC EACH EYE (20:24)
[2021-10-22] VITALS (51 sets, daily range): BP systolic 95–156; BP diastolic 29–90; PULSE 72–125; RESP 16–28; TEMP 35.5–37.8; O2SAT 94–100
[2021-10-22] MEDS: INSULIN ASPART (*BKC) 100 UNITS/ML SUB-Q ×2 (00:04→20:48)
[2021-10-22 00:11] LABS: Glucose Point of Care 214 mg/dl (65-105)
[2021-10-22] MEDS: ALBUTEROL SULFATE NEB 2.5 MG/3 ML INH INHALATION ×4 (02:00→19:45)
[2021-10-22] MEDS: IPRATROPIUM BR 0.02% INH SOLN 0.5 MG/2.5 ML VIAL INHALATION ×4 (02:00→19:45)
[2021-10-22 04:32] LABS: Glucose Point of Care 184 mg/dl (65-105)
[2021-10-22 05:45] LABS: Hematocrit 22.8 % (37.0-47.0); Hemoglobin 7.2 g/dL (12.0-15.0); Mean Corpuscular HGB Conc 31.6 g/dl (32-36); Mean Corpuscular Hemoglobin 32.3 pg (26-34); Mean Corpuscular Volume 102.2 fl (80-100); Mean Platelet Volume 10.5 fl (7.4-10.4); Platelet Count Result 213 k/mm3 (150-375); Red Blood Count 2.23 M/mm3 (4.2-5.4); Red Cell Distribution Width 14.7 % (11.5-14.5); White Blood Count 12.1 K/mm3 (4.5-10.0)
[2021-10-22 06:06] LABS: Alveolar/Arterial O2 Gradient 162.1 mmHg; Base Excess ABG 2.7 mEq/l (+/-2.0); Fractional Inspired Oxygen 40 %; HCO3 ABG 26.5 mEq/l (22.0-26.0); Methemoglobin ABG 0.3 %THb (0-1.5); Oxygen Content ABG 10.6 %vol (16.0-22.0); Oxygen Saturation ABG 96.5 % (95.0-100.0); Oxyhemoglobin 94.3 % THb (90.0-100.0); PCO2 ABG 37.1 mmHg (35.0-45.0); PO2 ABG 80.4 mmHg (80.0-100.0); PO2 FiO2 Ratio Arterial Blood 2.01 %; Reduced Hemoglobin 5.4 %THb (0-5.0); Total Hemoglobin 7.9 g/dL (12.0-18.0); pH ABG 7.471 (7.350-7.450)
[2021-10-22 06:07] LABS: Alanine Aminotransferase 66 U/L (6-35); Albumin Level 3.3 g/dL (3.5-5.1); Alkaline Phosphatase 99 U/L (38-126); Anion Gap 15 mmol/L (8-16); Aspartate Amino Transferase 37 U/L (14-36); Bilirubin,Total 0.6 mg/dL (0.2-1.3); Blood Urea Nitrogen 56 mg/dL (7-17); Calcium 8.7 mg/dL (8.4-10.2); Carbon Dioxide 31 mmol/L (22-30); Chloride 85 mmol/L (98-107); Estimated CRCL calculation 12 ml/min; Estimated Glomerular Filt Rate 9; Glucose 179 mg/dL (65-110); Magnesium 1.9 mg/dL (1.6-2.3); Potassium 3.6 mmol/L (3.4-5.0); Sodium 131 mmol/L (137-145)
[2021-10-22 06:08] LABS: Device VENTILATOR; Site Drawn RIGHT BRACHIAL
[2021-10-22 06:09] LABS: Arterial Blood Gas PEEP 10 cmH2O; Arterial Blood Gas Tidal Volume 450 ml; Arterial Blood Gas Vent Mode CMV; Arterial Blood Gas Ventilator rate 16 /MIN
[2021-10-22] MEDS: PROPOFOL IV EMULSION 100 ML 6.6 MG IV CONT ×2 (06:31→18:29)
[2021-10-22] MEDS: CENTRAL LINE FLUSH 10 ML IV PUSH ×4 (06:33→20:23)
--- NOTE | 2021-10-22 07:43 | PM.PNCARD ---
Progress Note: A&P Assessment and Plan (1) Shock: Code(s): R57.9 - Shock, unspecified Status: Acute Assessment and Plan: On Levophed drip. Likely due to respiratory failure from pneumonia. Was on Levophed but no longer requiring it. 10/18/21 Echo: EF 60-65%, mild LVH, diastolic dysfunction with E/e' 33, severe LAE, mod MAC and mitral valve calcifications, mild MR, trace TR/PI, severe pulm hypertension with RVSP 61 mmHg. Wean off Levophed as tolerated. (2) Acute respiratory failure: Code(s): J96.00 - Acute respiratory failure, unspecified whether with hypoxia or hypercapnia Status: Acute Assessment and Plan: Ventilator managed by loan closer. (3) Pneumonia: Code(s): J18.9 - Pneumonia, unspecified organism Status: Acute Assessment and Plan: On antibiotics per hospitalist. (4) HTN (hypertension): Code(s): I10 - Essential (primary) hypertension Status: Acute Assessment and Plan: Stable but off her home BP medications. Resume when BP starts to go up starting with Carvedilol, Olmesartan then Amlodipine in that order. (5) HLD (hyperlipidemia): Code(s): E78.5 - Hyperlipidemia, unspecified Status: Acute Assessment and Plan: On Atorvastatin. (6) Diastolic dysfunction: Code(s): I51.89 - Other ill-defined heart diseases Status: Acute Assessment and Plan: Fluid level controlled with HD. (7) ESRD (end stage renal disease) on dialysis: Code(s): N18.6 - End stage renal disease; Z99.2 - Dependence on renal dialysis Status: Acute Assessment and Plan: Fluid level controlled with HD. (8) Atrial fibrillation: Code(s): I48.91 - Unspecified atrial fibrillation Status: Acute Assessment and Plan: Back in sinus rhythm. New onset on 10/19/21, then had atrial tachycardia/flutter on 10/20/21. Probably due to respiratory status. [id number] 5. If no contraindication will start her on anticoagulation with Eliquis 5 mg BID (for weight >60kg and age<80). Decreased aspirin 81 mg daily. Off Amiodarone drip and maintaining sinus rhythm. If recurrence of atrial fib/flutter, then will resume Amiodarone drip and transition to PO. Eliquis on hold due to positive hemoccult and worsening anemia. Consider GI consult. Subjective Date/time seen: 10/22/21 07:43 Sedated and on ventilator. Exam Const: Other: Sedated on ventilator Resp: Auscultation: no crackles, no rales, no rhonchi, no wheezes and diminished lung sounds Cardio: Jugular venous distension: no JVD Rate: regular rate Rhythm: regular rhythm Heart sounds: no murmurs Peripheral pulses: dorsalis pedis present GI: GI Palp: No abdominal tenderness and Yes Soft to palpation Extrem: Right lower extremity: no edema Left lower extremity: no edema Objective Data Vital Signs Vital Signs: Vital Signs - 24 hr 10/21/21 08:00 10/21/21 08:22 10/21/21 08:23 Temperature 101.2 F H Pulse Rate 90 92 92 Respiratory Rate 25 H 25 H Blood Pressure 136/53 L Pulse Oximetry 100 99 Oxygen Delivery Mechanical Ventilation Fraction of Inspired Oxygen 50 10/21/21 08:29 10/21/21 08:41 10/21/21 08:42 Temperature Pulse Rate 92 94 94 Respiratory Rate 22 H 30 H Blood Pressure 141/60 H Pulse Oximetry Oxygen Delivery Fraction of Inspired Oxygen 10/21/21 09:49 10/21/21 09:45 10/21/21 10:00 Temperature 101.5 F H 101.5 F H Pulse Rate 87 Respiratory Rate 20 Blood Pressure 141/53 H 125/45 L Pulse Oximetry 86 L Oxygen Delivery Fraction of Inspired Oxygen 10/21/21 11:35 10/21/21 10:49 10/21/21 12:00 Temperature 101.2 F H 100.1 F H Pulse Rate 70 77 Respiratory Rate 20 Blood Pressure 115/40 L Pulse Oximetry 99 97 Oxygen Delivery Mechanical Ventilation Fraction of Inspired Oxygen 50 10/21/21 12:57 10/21/21 08:00 10/21/21 08:00 Temperature Pulse Rate 77 91 Respiratory Rate Blood Pressure
[2021-10-22 08:38] LABS: Glucose Point of Care 197 mg/dl (65-105)
[2021-10-22] MEDS: DOXYCYCLINE 100 MG/NS 100 ML 100 MG/100 ML BAG IVPB (08:38)
[2021-10-22] MEDS: INSULIN GLARGINE (*BKC) 100 UNITS/ML 30 UNITS SUB-Q (08:45)
[2021-10-22] MEDS: PANTOPRAZOLE SODIUM IV 40 MG VIAL IV PUSH ×2 (08:46→20:17)
[2021-10-22 08:47] LABS: INR 1.4; Prothrombin Time 16.5 Seconds (11.1-14.7)
[2021-10-22] MEDS: MINERAL OIL/WHITE PETROLATUM OINTMENT 1 APPLIC EACH EYE ×2 (08:47→20:17)
[2021-10-22] MEDS: ATORVASTATIN 20 MG TABLET PO (08:47)
[2021-10-22] MEDS: ASPIRIN 81 MG ENTERIC TABLET PO (08:47)
[2021-10-22 08:48] LABS: Partial Thromboplastin Time 37.4 SECONDS (22.3-36.8)
--- NOTE | 2021-10-22 09:54 | WPDINTPN ---
Progress Note: A&P Assessment and Plan (1) Encephalopathy: Code(s): G93.40 - Encephalopathy, unspecified Status: Acute Assessment and Plan: Encephalopathy could be multifactorial, cardiac arrest, anoxic injury, metabolic causes, infection -10/21 EEG showed diffuse slowing with triphasic waves may be seen in setting of metabolic encephalopathy, there were no epileptiform discharges. -neurology following the patient -sedation has been held to evaluate for mental status (2) Cardiac arrest: Code(s): I46.9 - Cardiac arrest, cause unspecified Status: Acute Assessment and Plan: Cardiac arrest with CPR and 1 round of epi and vasopressin with ROSC -likely cause of cardiac arrest was respiratory failure, hypoxia -troponins have plateaued, no acute coronary syndrome as a cause of cardiac arrest per Cardiology -status post target temperature management post cardiac arrest -currently on propofol infusion for sedation daily sedation vacation to assess mental status -encephalopathy persists, EEG is above (3) Acute respiratory failure: Code(s): J96.00 - Acute respiratory failure, unspecified whether with hypoxia or hypercapnia Status: Acute Assessment and Plan: Acute respiratory failure likely related to pulmonary edema, pneumonia, congestive heart failure pulmonary hypertension -she presented the outside hospital with shortness of breath and hypoxia for few days, patient was being transferred to [facility] in an ambulance which she rested secondary to hypoxic respiratory failure - patient intubated on 10/18/2021 -chest x-ray 10/22: Worsening patchy bilateral lung disease which could represent pulmonary edema and/or pneumonia. -ABGs reviewed, ventilator adjusted to increase PEEP to 10, currently on 40% FiO2 -sedated with propofol infusion for sedation, daily sedation vacation to assess mental status -discussed with pulmonology, no bronchoscopy, he will order a viral panel -continue vancomycin 10/18, doxycycline 10/18, imipenem 10/21 -10/22 will switch doxycycline to Levaquin(will does according to dialysis) 10/22/: Leukocytosis improving, fevers have resolved 10/21/2021 CTA chest PE protocol along with abdominal and pelvis 1. No pulmonary embolus identified, sensitivity limited by respiratory motion artifact. 2. Diffuse lung disease, consistent with pulmonary edema and/or pneumonia. 3. Gallbladder distention and chronic wall thickening of the gallbladder which could reflect acute versus chronic cholecystitis. 4. Indeterminate left kidney mass which may be benign or malignant, nonemergent follow-up is recommended. (4) Shock: Code(s): R57.9 - Shock, unspecified Status: Acute Assessment and Plan: Patient febrile, AFib RVR, dropped her pressures, started on Levophed -maintain mean arterial pressures > 65 mm Hg adequate end organ perfusion -continue antibiotics as above -obtain blood cultures -blood pressure is much improved this morning, patient most likely will, off Levophed (5) Congestive heart failure: Qualifiers: Heart failure chronicity: acute on chronic Heart failure type: unspecified Qualified Code(s): I50.9 - Heart failure, unspecified Code(s): I50.9 - Heart failure, unspecified Status: Acute Assessment and Plan: 10/18/2021 Echocardiogram: LV systolic function is 60-65%, LV diastolic function is abnormal, left atrial chamber severely enlarged, mild aortic valve sclerosis, mild mitral valve regurg, severe pulmonary hypertension with RVSP of 61 mmHg -cardiology following the patient -hold all antihypertensives as patient is on Levophed (6) COPD (chronic obstructive pulmonary disease): Code(s): J44.9 - Chronic obstructive pulmonary disease, unspecified Status: Acute Assessment and Plan: Continue bronchodilators, antibiotics and mechanical ventilation (7) Pneumonia: Code(s): J18.9 - Pneumonia, unspecified organism
[2021-10-22] MEDS: ALBUMIN HUMAN 25% 25 GM/100 ML 100 ML IVPB (10:00)
--- NOTE | 2021-10-22 10:08 | PM.IMPN ---
Progress Note: A&P Assessment and Plan (1) Encephalopathy: Code(s): G93.40 - Encephalopathy, unspecified Status: Acute Assessment and Plan: Likely multifactorial, unknown etiology at this time, EEG was nonepileptic, appreciate Neurology consultation (2) Cardiac arrest: Code(s): I46.9 - Cardiac arrest, cause unspecified Status: Acute Assessment and Plan: Cardiac arrest thought to be secondary to hypoxia and primary respiratory failure, status post CPR and 1 round of epi and vasopressin with ROSC (3) Acute respiratory failure: Code(s): J96.00 - Acute respiratory failure, unspecified whether with hypoxia or hypercapnia Status: Acute Assessment and Plan: Acute respiratory failure likely related to pulmonary edema, pneumonia, congestive heart failure pulmonary hypertension Continue vanc (started on 10/18), imipenem and Levaquin, day 5 of antibiotics CTA done to rule out PE, negative, did show gallbladder wall thickening concerning for acute versus chronic cholecystitis, also noted left kidney mass, concerning for malignancy, would be metastatic due to primary pancreatic cancer noted (4) Shock: Code(s): R57.9 - Shock, unspecified Status: Acute Assessment and Plan: Primary source thought to be pneumonia, blood pressure is improving, stable off Levophed today (5) Congestive heart failure: Qualifiers: Heart failure chronicity: acute on chronic Heart failure type: unspecified Qualified Code(s): I50.9 - Heart failure, unspecified Code(s): I50.9 - Heart failure, unspecified Status: Acute Assessment and Plan: Diastolic heart failure noted with preserved EF, appreciate cardiology consultation Fluid status maintained by hemodialysis and Nephrology (6) COPD (chronic obstructive pulmonary disease): Code(s): J44.9 - Chronic obstructive pulmonary disease, unspecified Status: Acute Assessment and Plan: Continue bronchodilators, antibiotics and mechanical ventilation (7) Pneumonia: Code(s): J18.9 - Pneumonia, unspecified organism Status: Acute (8) Pulmonary hypertension: Code(s): I27.20 - Pulmonary hypertension, unspecified Status: Acute Assessment and Plan: Echocardiogram showed severe pulmonary hypertension (9) HTN (hypertension): Code(s): I10 - Essential (primary) hypertension Status: Acute Assessment and Plan: Restart antihypertensives when appropriate, currently off Levophed, monitor (10) CVA (cerebral vascular accident): Code(s): I63.9 - Cerebral infarction, unspecified Status: Acute Assessment and Plan: Appreciate neurology consultation, pending (11) Atrial fibrillation: Code(s): I48.91 - Unspecified atrial fibrillation Status: Acute Assessment and Plan: Appreciate cardiology consultation, suspected new onset atrial fibrillation secondary to cardiac arrest (12) Diabetes mellitus: Code(s): E11.9 - Type 2 diabetes mellitus without complications Status: Acute Assessment and Plan: Hyperglycemia, continue Accu-Cheks, sliding scale insulin -increase Lantus (13) Acute cholecystitis: Code(s): K81.0 - Acute cholecystitis Status: Acute Assessment and Plan: Patient has history of ERCP with stent placement about 5 years ago, GI consult recommended general surgery consult to evaluate for possible cholecystitis, this is pending (14) Anemia: Code(s): D64.9 - Anemia, unspecified Status: Acute Plan DVT prophylaxis: SCDs Stress Ulcer Prophylaxis: Protonix Nutrition: Started tube feeds as patient had vomiting overnight Subjective Date/time seen: 10/22/21 10:08 Interval history: Intubated, on sedation holiday during exam. Did not wake up or follow commands. No overnight events noted. Review of Systems Review of Systems: ROS unobtainable: Yes unobtainable due
[2021-10-22] MEDS: EPOETIN ALFA-EPBX 10,000 UNITS/ML VIAL 10000 UNITS IV PUSH (10:11)
[2021-10-22] MEDS: SODIUM CHLORIDE 0.9% IV 1,000 ML 999 ML IV CONT ×2 (10:12→10:13)
--- NOTE | 2021-10-22 11:13 | PCNFU ---
Nutrition Follow-Up Complete: Inadequate Oral Intake as related to mechanical ventilation as evidenced by Tube feedings. Goal: Meet estimated nutritional needs Patient is meeting current goal. We will continue current goal. Pt current nutrition is Nepro at 40 ml/hr Last recorded weight is 106.7 kg, down from 110 kg on admit. Bowel Motility:+BM reported 10/22 Labs Reviewed:Glu 179, Cr 4.7,BUN 56, Na 131, Alb 3.3,Hct 22.4,Hgb 7.2 Meds Noted:Eliquis,Zosyn, Lantus, NovoLog, Protonix, Atrovent, Lipitor Skin: WNL Additional Notes: Patient remains on mechanical vent and tube feedings of Nepro at 40 ml/hr and tolerating per nursing. Current tube feeding is providing patient with 1584 kcals/72 gms protein/640 ml water. Free water flush 30 ml q 4 hours. Tube feedings meeting 86% kcal needs and 100% protein needs. GI consult. No fevers. Agree with diet orders. Will monitor in ICU rounds and reassessing every Monday and Monday.
[2021-10-22 12:55] LABS: Glucose Point of Care 147 mg/dl (65-105)
[2021-10-22] MEDS: AMIODARONE 360 MG/D5W 200 ML 360 MG/200 ML BAG 33.33 MG IV CONT (14:20)
[2021-10-22 15:43] LABS: Glucose Point of Care 168 mg/dl (65-105)
--- NOTE | 2021-10-22 15:56 | WPDGICN ---
Assessment and Plan Assessment and plan (1) Septic shock: Code(s): A41.9 - Sepsis, unspecified organism; R65.21 - Severe sepsis with septic shock Status: Acute Assessment and Plan: this has been treated, probably related to pneumonia, concerned also for possible cholecystitis off pressors now on antibiotic by blacktop spreader she is quite sick for invasive intervention. I would like to get more records about biliary stent placed about 5 years ago (it should have been removed by now as can cause infection however she has normal bilirubin), consider surgery consult (2) Cardiac arrest: Code(s): I46.9 - Cardiac arrest, cause unspecified Status: Acute Assessment and Plan: intubated, also possible stroke she is quite sick (3) Acute respiratory failure: Code(s): J96.00 - Acute respiratory failure, unspecified whether with hypoxia or hypercapnia Status: Acute Assessment and Plan: intubated (4) CVA (cerebral vascular accident): Code(s): I63.9 - Cerebral infarction, unspecified Status: Acute Assessment and Plan: neurology on board (5) Atrial fibrillation: Code(s): I48.91 - Unspecified atrial fibrillation Status: Acute Assessment and Plan: this has been treated (6) Acute cholecystitis: Code(s): K81.0 - Acute cholecystitis Status: Acute Assessment and Plan: monitor, on antibiotics (7) Anemia: Code(s): D64.9 - Anemia, unspecified Status: Acute Assessment and Plan: probably multifactorial, also esrd (8) ESRD (end stage renal disease) on dialysis: Code(s): N18.6 - End stage renal disease; Z99.2 - Dependence on renal dialysis Status: Acute Assessment and Plan: by nephrology (9) History of biliary duct stent placement: Code(s): Z98.890 - Other specified postprocedural states Status: Acute Assessment and Plan: will need to get more information at least bilirubin is normal GI Consult Note Consult date/time: 10/22/21 15:56 Reason for consult: cholecystitis, sepsis, bile duct stent HPI: Pennie Buckley is a 71 year old female with past medical history of end-stage renal disease on dialysis, diabetes, copd, who initially was taken to [facility] ER with respiratory failure and cardiac arrest last weekend. History is obtained from records and family at bedside.? Reason for transfer was that they do not have dialysis capability.?Family called EMS with chief complaint of shortness of breath for last few days.? Patient was found to be hypoxic.? Patient was being transferred to ambulance and plan was to initiate BiPAP.? At that time patient became unresponsive due to severe hypoxic and lost her pulse.? Patient was intubated, brief amount of CPR was given including to epinephrine and 1 vas[address]ressin.?CT scan reviewed, diffuse lung disease, consistent with pulmonary edema and/or pneumonia, gallbladder distention and chronic wall thickening of the gallbladder which could reflect acute versus chronic cholecystitis, also noted stent in bile duct. 10/18/2021 CT brain: Showed possible will acute infarct in the posterior left parietal lobe with age-related changing and neurology on board. She is not longer using pressors, still encephalopathic, RN told me that is not tolerating tube feeding, also has anemia but no overt gib. Family mentioned that she has been evaluated for GB issue few months ago and had ERCP with stent placement 5 years ago at [facility] but it has not been removed (they do not know details). Normal bilirubin, transaminases 70-100. Also pneumonia and on antibiotics Review of Systems Review of Systems: ROS unobtainable: Yes unobtainable due to endotracheal tube, unobtainable due to medical condition and unobtainable due to mental status PMFSH Past Medical History Medical History (Updated 10/22/21 @ 10:01 by Lloyd Puente MD) Anemia in CKD (ch
[2021-10-22 18:57] LABS: Vancomycin Random 19.3 ug/mL (10-20)
[2021-10-22] MEDS: AMIODARONE 360 MG/D5W 200 ML 360 MG/200 ML BAG 16.67 MG IV CONT (20:17)
[2021-10-22 20:48] LABS: Glucose Point of Care 225 mg/dl (65-105)
--- NOTE | 2021-10-22 23:40 | PM.PNNEP ---
Progress Note: A&P Assessment and Plan (1) Encephalopathy: Code(s): G93.40 - Encephalopathy, unspecified Status: Acute Assessment and Plan: Likely multifactorial, unknown etiology at this time, EEG was nonepileptic, appreciate Neurology consultation (2) Cardiac arrest: Code(s): I46.9 - Cardiac arrest, cause unspecified Status: Acute Assessment and Plan: Cardiac arrest thought to be secondary to hypoxia and primary respiratory failure, status post CPR and 1 round of epi and vasopressin with ROSC (3) Acute respiratory failure: Code(s): J96.00 - Acute respiratory failure, unspecified whether with hypoxia or hypercapnia Status: Acute Assessment and Plan: Acute respiratory failure likely related to pulmonary edema, pneumonia, congestive heart failure pulmonary hypertension Continue vanc (started on 10/18), imipenem and Levaquin, day 5 of antibiotics CTA done to rule out PE, negative, did show gallbladder wall thickening concerning for acute versus chronic cholecystitis, also noted left kidney mass, concerning for malignancy, would be metastatic due to primary pancreatic cancer noted (4) Shock: Code(s): R57.9 - Shock, unspecified Status: Acute Assessment and Plan: Primary source thought to be pneumonia, blood pressure is improving, stable off Levophed today (5) Congestive heart failure: Qualifiers: Heart failure chronicity: acute on chronic Heart failure type: unspecified Qualified Code(s): I50.9 - Heart failure, unspecified Code(s): I50.9 - Heart failure, unspecified Status: Acute Assessment and Plan: Diastolic heart failure noted with preserved EF, appreciate cardiology consultation Fluid status maintained by hemodialysis and Nephrology (6) COPD (chronic obstructive pulmonary disease): Code(s): J44.9 - Chronic obstructive pulmonary disease, unspecified Status: Acute Assessment and Plan: Continue bronchodilators, antibiotics and mechanical ventilation (7) Pneumonia: Code(s): J18.9 - Pneumonia, unspecified organism Status: Acute (8) Pulmonary hypertension: Code(s): I27.20 - Pulmonary hypertension, unspecified Status: Acute Assessment and Plan: Echocardiogram showed severe pulmonary hypertension (9) HTN (hypertension): Code(s): I10 - Essential (primary) hypertension Status: Acute Assessment and Plan: Restart antihypertensives when appropriate, currently off Levophed, monitor (10) CVA (cerebral vascular accident): Code(s): I63.9 - Cerebral infarction, unspecified Status: Acute Assessment and Plan: Appreciate neurology consultation, pending (11) Atrial fibrillation: Code(s): I48.91 - Unspecified atrial fibrillation Status: Acute Assessment and Plan: Appreciate cardiology consultation, suspected new onset atrial fibrillation secondary to cardiac arrest (12) Diabetes mellitus: Code(s): E11.9 - Type 2 diabetes mellitus without complications Status: Acute Assessment and Plan: Hyperglycemia, continue Accu-Cheks, sliding scale insulin -increase Lantus (13) Acute cholecystitis: Code(s): K81.0 - Acute cholecystitis Status: Acute Assessment and Plan: Patient has history of ERCP with stent placement about 5 years ago, GI consult recommended general surgery consult to evaluate for possible cholecystitis, this is pending (14) Anemia: Code(s): D64.9 - Anemia, unspecified Status: Acute Plan complete hd continue to dose adjust meds for reduced kidney function Subjective Date/time seen: 10/22/21 10:40 pt seen on dialysis and is stable. Objective Data Vital Signs Vital Signs: Vital Signs - 24 hr 10/22/21 00:00 10/22/21 00:00 10/22/21 00:00 Temperature 37.8 C H Pulse Rate 78 78 Respiratory Rate 23 H Blood Pressure 105/33 L Pulse Oximetry
[2021-10-23] VITALS (49 sets, daily range): BP systolic 100–136; BP diastolic 34–91; PULSE 80–101; RESP 16–30; TEMP 37–38.1; O2SAT 91–99
[2021-10-23] MEDS: INSULIN ASPART (*BKC) 100 UNITS/ML SUB-Q ×4 (00:05→21:12)
[2021-10-23 00:07] LABS: Glucose Point of Care 220 mg/dl (65-105)
[2021-10-23] MEDS: ALBUTEROL SULFATE NEB 2.5 MG/3 ML INH INHALATION ×4 (02:36→20:28)
[2021-10-23] MEDS: IPRATROPIUM BR 0.02% INH SOLN 0.5 MG/2.5 ML VIAL INHALATION ×4 (02:36→20:28)
[2021-10-23 04:34] LABS: Alveolar/Arterial O2 Gradient 138.1 mmHg; Base Excess ABG 7.3 mEq/l (+/-2.0); Carboxyhemoglobin 0.3 % THb (0-2.0); Fractional Inspired Oxygen 40 %; HCO3 ABG 31.1 mEq/l (22.0-26.0); Methemoglobin ABG 0.1 %THb (0-1.5); Oxygen Content ABG 14.1 %vol (16.0-22.0); Oxyhemoglobin 96.5 % THb (90.0-100.0); Reduced Hemoglobin 3.1 %THb (0-5.0); Total Hemoglobin 10.3 g/dL (12.0-18.0); pH ABG 7.498 (7.350-7.450)
[2021-10-23] MEDS: AMIODARONE 360 MG/D5W 200 ML 360 MG/200 ML BAG 16.67 MG IV CONT (04:35)
[2021-10-23 04:36] LABS: Device VENTILATOR; Site Drawn RIGHT BRACHIAL
[2021-10-23 04:37] LABS: Arterial Blood Gas PEEP 10 cmH2O; Arterial Blood Gas Tidal Volume 450 ml; Arterial Blood Gas Vent Mode CMV; Arterial Blood Gas Ventilator rate 16 /MIN
[2021-10-23] MEDS: CENTRAL LINE FLUSH 10 ML IV PUSH ×4 (04:40→20:50)
[2021-10-23 04:42] LABS: Glucose Point of Care 191 mg/dl (65-105)
[2021-10-23 04:53] LABS: Hematocrit 23.5 % (37.0-47.0); Hemoglobin 7.2 g/dL (12.0-15.0); Mean Corpuscular HGB Conc 30.6 g/dl (32-36); Mean Corpuscular Volume 104.4 fl (80-100); Mean Platelet Volume 10.3 fl (7.4-10.4); Platelet Count Result 240 k/mm3 (150-375); Red Blood Count 2.25 M/mm3 (4.2-5.4); Red Cell Distribution Width 14.9 % (11.5-14.5); White Blood Count 11.7 K/mm3 (4.5-10.0)
[2021-10-23 05:05] LABS: Alanine Aminotransferase 94 U/L (6-35); Albumin Level 3.5 g/dL (3.5-5.1); Alkaline Phosphatase 98 U/L (38-126); Anion Gap 12 mmol/L (8-16); Aspartate Amino Transferase 84 U/L (14-36); Bilirubin,Total 0.7 mg/dL (0.2-1.3); Blood Urea Nitrogen 44 mg/dL (7-17); Calcium 9.1 mg/dL (8.4-10.2); Carbon Dioxide 36 mmol/L (22-30); Chloride 87 mmol/L (98-107); Estimated CRCL calculation 19 ml/min; Estimated Glomerular Filt Rate 15; Glucose 209 mg/dL (65-110); Phosphorus 4.1 mg/dL (2.5-4.5); Potassium 3.3 mmol/L (3.4-5.0); Sodium 135 mmol/L (137-145)
--- NOTE | 2021-10-23 07:34 | PM.PNCARD ---
Progress Note: A&P Assessment and Plan (1) Shock: Code(s): R57.9 - Shock, unspecified Status: Acute Assessment and Plan: On Levophed drip. Likely due to respiratory failure from pneumonia. Was on Levophed but no longer requiring it. 10/18/21 Echo: EF 60-65%, mild LVH, diastolic dysfunction with E/e' 33, severe LAE, mod MAC and mitral valve calcifications, mild MR, trace TR/PI, severe pulm hypertension with RVSP 61 mmHg. Wean off Levophed as tolerated. (2) Acute respiratory failure: Code(s): J96.00 - Acute respiratory failure, unspecified whether with hypoxia or hypercapnia Status: Acute Assessment and Plan: Ventilator managed by web editor. (3) Pneumonia: Code(s): J18.9 - Pneumonia, unspecified organism Status: Acute Assessment and Plan: On antibiotics per hospitalist. (4) HTN (hypertension): Code(s): I10 - Essential (primary) hypertension Status: Acute Assessment and Plan: Stable but off her home BP medications. Resume when BP starts to go up starting with Carvedilol, Olmesartan then Amlodipine in that order. (5) HLD (hyperlipidemia): Code(s): E78.5 - Hyperlipidemia, unspecified Status: Acute Assessment and Plan: On Atorvastatin. (6) Diastolic dysfunction: Code(s): I51.89 - Other ill-defined heart diseases Status: Acute Assessment and Plan: Fluid level controlled with HD. (7) ESRD (end stage renal disease) on dialysis: Code(s): N18.6 - End stage renal disease; Z99.2 - Dependence on renal dialysis Status: Acute Assessment and Plan: Fluid level controlled with HD. (8) Atrial fibrillation: Code(s): I48.91 - Unspecified atrial fibrillation Status: Acute Assessment and Plan: Back in sinus rhythm. New onset on 10/19/21, then had atrial tachycardia/flutter on 10/20/21. Probably due to respiratory status. [id number] 5. If no contraindication will start her on anticoagulation with Eliquis 5 mg BID (for weight >60kg and age<80). Decreased aspirin 81 mg daily. Resumed Amiodarone drip and restored sinus rhythm. Due to potential for recurrence of atrial fib/flutter, will change Amiodarone IV to 200 mg PO every 12 hours. Eliquis on hold due to positive hemoccult and worsening anemia. Discuss with Dr. Puente, will start heparin drip and if no GI bleeding with it, then will stop heparin drip and start Eliquis. Subjective Date/time seen: 10/23/21 07:34 Sedated and on ventilator. Exam Const: Other: Sedated on ventilator Resp: Auscultation: no crackles, no rales, no rhonchi, no wheezes and diminished lung sounds Cardio: Jugular venous distension: no JVD Rate: regular rate Rhythm: regular rhythm Heart sounds: no murmurs Peripheral pulses: dorsalis pedis present GI: GI Palp: No abdominal tenderness and Yes Soft to palpation Extrem: Right lower extremity: no edema Left lower extremity: no edema Objective Data Vital Signs Vital Signs: Vital Signs - 24 hr 10/22/21 08:08 10/22/21 08:09 10/22/21 08:29 Temperature Pulse Rate 81 83 83 Respiratory Rate 27 H 25 H Blood Pressure Pulse Oximetry 98 Oxygen Delivery Mechanical Ventilation Fraction of Inspired Oxygen 40 10/22/21 08:00 10/22/21 08:00 10/22/21 08:00 Temperature 99 F Pulse Rate 80 80 Respiratory Rate 22 H Blood Pressure 156/52 H Pulse Oximetry 99 Oxygen Delivery Fraction of Inspired Oxygen 40 10/22/21 08:00 10/22/21 10:00 10/22/21 10:00 Temperature 99 F Pulse Rate 80 109 H 109 H Respiratory Rate 22 H 26 H Blood Pressure 156/64 H Pulse Oximetry 99 98 Oxygen Delivery Mechanical Ventilation Fraction of Inspired Oxygen 40 10/22/21 09:30 10/22/21 10:15 10/22/21 10:30 Temperature Pulse Rate 86 101 H 115 H Respiratory Rate Blood Pressure 153/55 H 136/60 114/68 Pulse Oximetry Oxygen Delivery Fraction of Inspired Oxygen 10/22/21 10:45 08
[2021-10-23] MEDS: POTASSIUM CHLORIDE 20 MEQ PACKET (FOR LIQUID) 40 MEQ FEED TUBE (08:21)
[2021-10-23] MEDS: INSULIN GLARGINE (*BKC) 100 UNITS/ML 30 UNITS SUB-Q (08:22)
[2021-10-23] MEDS: PANTOPRAZOLE SODIUM IV 40 MG VIAL IV PUSH ×2 (08:22→20:50)
[2021-10-23] MEDS: AMIODARONE HCL 200 MG TABLET PO ×2 (08:23→20:50)
[2021-10-23] MEDS: ATORVASTATIN 20 MG TABLET PO (08:23)
[2021-10-23] MEDS: ASPIRIN 81 MG ENTERIC TABLET PO (08:23)
[2021-10-23] MEDS: MINERAL OIL/WHITE PETROLATUM OINTMENT 1 APPLIC EACH EYE ×2 (08:24→20:50)
[2021-10-23 08:27] LABS: Glucose Point of Care 220 mg/dl (65-105)
[2021-10-23] MEDS: PROPOFOL IV EMULSION 100 ML 6.6 MG IV CONT (08:30)
--- NOTE | 2021-10-23 08:50 | PM.IMPN ---
Progress Note: A&P Assessment and Plan (1) Encephalopathy: Code(s): G93.40 - Encephalopathy, unspecified Status: Acute Assessment and Plan: Likely multifactorial, unknown etiology at this time, EEG was nonepileptic, appreciate Neurology consultation 10/23: Appears unchanged, continuing to attempt sedation holidays (2) Cardiac arrest: Code(s): I46.9 - Cardiac arrest, cause unspecified Status: Acute Assessment and Plan: Cardiac arrest thought to be secondary to hypoxia and primary respiratory failure, status post CPR and 1 round of epi and vasopressin with ROSC (3) Acute respiratory failure: Code(s): J96.00 - Acute respiratory failure, unspecified whether with hypoxia or hypercapnia Status: Acute Assessment and Plan: Acute respiratory failure likely related to pulmonary edema, pneumonia, congestive heart failure pulmonary hypertension CTA done to rule out PE, negative, did show gallbladder wall thickening concerning for acute versus chronic cholecystitis, also noted left kidney mass, concerning for malignancy, would be metastatic due to primary pancreatic cancer noted 10/23: Continue vanc (started on 10/18), imipenem and Levaquin, day 6 of antibiotics (4) Shock: Code(s): R57.9 - Shock, unspecified Status: Acute Assessment and Plan: Primary source thought to be pneumonia, blood pressure is improving, stable off Levophed today 10/23: Cholecystitis could also be contributing source to sepsis, surgery consult pending Update: Spoke with general surgeon, Dr. Jolly, plan is for cholecystostomy tube today, will need to follow up regarding the placement of the biliary stent 5 years ago, records pending (5) Congestive heart failure: Qualifiers: Heart failure chronicity: acute on chronic Heart failure type: unspecified Qualified Code(s): I50.9 - Heart failure, unspecified Code(s): I50.9 - Heart failure, unspecified Status: Acute Assessment and Plan: Diastolic heart failure noted with preserved EF, appreciate cardiology consultation Fluid status maintained by hemodialysis and Nephrology (6) COPD (chronic obstructive pulmonary disease): Code(s): J44.9 - Chronic obstructive pulmonary disease, unspecified Status: Acute Assessment and Plan: Continue bronchodilators, antibiotics and mechanical ventilation (7) Pneumonia: Code(s): J18.9 - Pneumonia, unspecified organism Status: Acute (8) Pulmonary hypertension: Code(s): I27.20 - Pulmonary hypertension, unspecified Status: Acute Assessment and Plan: Echocardiogram showed severe pulmonary hypertension (9) HTN (hypertension): Code(s): I10 - Essential (primary) hypertension Status: Acute Assessment and Plan: Restart antihypertensives when appropriate, currently off Levophed, monitor (10) CVA (cerebral vascular accident): Code(s): I63.9 - Cerebral infarction, unspecified Status: Acute Assessment and Plan: Appreciate neurology consultation, pending (11) Atrial fibrillation: Code(s): I48.91 - Unspecified atrial fibrillation Status: Acute Assessment and Plan: Appreciate cardiology consultation, suspected new onset atrial fibrillation secondary to cardiac arrest Cardiology changed to amiodarone from 200 mg IV to p.o. through the tube every 12 hours Continue to hold Eliquis due to worsening anemia with positive fecal occult (12) Diabetes mellitus: Code(s): E11.9 - Type 2 diabetes mellitus without complications Status: Acute Assessment and Plan: Hyperglycemia, continue Accu-Cheks, sliding scale insulin (13) Acute cholecystitis: Code(s): K81.0 - Acute cholecystitis Status: Acute Assessment and Plan: Patient has history of ERCP with stent placement about 5 years ago, GI consult recommended general surgery consult to evaluate for possible chol
--- NOTE | 2021-10-23 11:15 | PM.CNGS ---
Assessment and Plan Assessment and plan (1) Acute cholecystitis: Code(s): K81.0 - Acute cholecystitis Status: Acute Assessment and Plan: Discussed the patient with Dr. Puente. CT suspicious for acute cholecystitis. With patient's persistent fever and lack of improvement, feel that treatment with percutaneous cholecystostomy tube is most prudent management at this point. Will go ahead and order this for today. (2) Septic shock: Code(s): A41.9 - Sepsis, unspecified organism; R65.21 - Severe sepsis with septic shock Status: Acute Assessment and Plan: Continues on broad-spectrum antibiotics and critical care acute management. (3) Acute respiratory failure: Code(s): J96.00 - Acute respiratory failure, unspecified whether with hypoxia or hypercapnia Status: Acute (4) ESRD (end stage renal disease) on dialysis: Code(s): N18.6 - End stage renal disease; Z99.2 - Dependence on renal dialysis Status: Acute Assessment and Plan: Receiving dialysis as appropriate (5) Diastolic congestive heart failure: Code(s): I50.30 - Unspecified diastolic (congestive) heart failure Status: Acute (6) History of biliary duct stent placement: Code(s): Z98.890 - Other specified postprocedural states Status: Chronic Assessment and Plan: awaiting outside records. Dr. Pelayo following. History of Present Illness Consult details Consult date: 10/23/21 Reason for consult: other (Abnormal biliary imaging) Requesting physician: Ken Amaya MD Narrative: patient is a 71-year-old woman who was having some shortness of breath and called an ambulance on October 18. Unfortunately she went into cardiopulmonary arrest as she was being placed in the ambulance. She went to [facility] and was treated. She is a dialysis patient and was transferred here from [place] as they do not have dialysis services. She has been in septic shock with evidence of severe pneumonia. despite broad-spectrum antibiotic therapy and critical care management, the patient continued to have fever and was not improving. She had a CTA of the chest abdomen and pelvis. This did not show pulmonary embolism but did show evidence of gallbladder dilatation and possible cholecystitis. Interestingly, there was also a biliary stent noted. This is also seen on plain films. Dr. Pelayo has seen the patient regarding this. Reports from [facility] are being obtained regarding the reasons for the stent and it is planned management. Patient does not have evidence of hepatobiliary obstruction. She is seen now in consultation regarding possible cholecystitis. She is intubated on a ventilator and not able to give any history. Past history is gained entirely from talking with the puttier and reviewing the record. Review of Systems Review of Systems: ROS unobtainable: Yes unobtainable due to endotracheal tube PMFSH Past Medical History Medical History (Updated 10/22/21 @ 10:01 by Lloyd Puente MD) Anemia in CKD (chronic kidney disease) Arthritis CHF (congestive heart failure) Diabetes mellitus DVT (deep venous thrombosis) Fistula Fracture HLD (hyperlipidemia) HTN (hypertension) Hypoglycemic coma IBS (irritable bowel syndrome) Kidney stone On home oxygen therapy Peripheral neuropathy Pleural effusion in other conditions classified elsewhere Pulmonary embolism Rectal polyp Renal disease Surgical History Surgical History (Updated 10/23/21 @ 11:30 by Klever Jolly MD) H/O: hysterectomy History of biliary duct stent placement History of History of cataract surgery Family History Family History Mother Family history of gout Hypertension Family history of elevated blood lipids Family history of arthritis Father Family history of kidney disease
[2021-10-23 11:44] LABS: Glucose Point of Care 214 mg/dl (65-105)
--- NOTE | 2021-10-23 12:39 | WPDINTPN ---
Progress Note: A&P Assessment and Plan (1) Encephalopathy: Code(s): G93.40 - Encephalopathy, unspecified Status: Acute Assessment and Plan: Encephalopathy could be multifactorial, cardiac arrest, anoxic injury, metabolic causes, infection -10/21 EEG showed diffuse slowing with triphasic waves may be seen in setting of metabolic encephalopathy, there were no epileptiform discharges. -neurology following the patient -sedation has been held to evaluate for mental status -will repeat EEG on 10/25 if patient does not wake up (2) Cardiac arrest: Code(s): I46.9 - Cardiac arrest, cause unspecified Status: Acute Assessment and Plan: 10/18; Cardiac arrest with CPR and 1 round of epi and vasopressin with ROSC -likely cause of cardiac arrest was respiratory failure, hypoxia -troponins have plateaued, no acute coronary syndrome as a cause of cardiac arrest per Cardiology -status post target temperature management post cardiac arrest -currently on propofol infusion for sedation daily sedation vacation to assess mental status -encephalopathy persists, EEG is above (3) Acute respiratory failure: Code(s): J96.00 - Acute respiratory failure, unspecified whether with hypoxia or hypercapnia Status: Acute Assessment and Plan: Acute respiratory failure likely related to pulmonary edema, pneumonia, congestive heart failure pulmonary hypertension -she presented the outside hospital with shortness of breath and hypoxia for few days, patient was being transferred to [facility] in an ambulance which she rested secondary to hypoxic respiratory failure - patient intubated on 10/18/2021 -chest x-ray 10/23: Stable diffuse lung disease, consistent with pulmonary edema versus pneumonia -ABGs reviewed, ventilator adjusted to increase PEEP to 10, currently on 40% FiO2 -sedated with propofol infusion for sedation, daily sedation vacation to assess mental status -discussed with pulmonology, no bronchoscopy, he will order a viral panel -continue vancomycin 10/18, doxycycline 10/18, imipenem 10/21 -10/22 will switch doxycycline to Levaquin(will does according to dialysis) 10/23: Leukocytosis improving, fevers have resolved 10/21/2021 CTA chest PE protocol along with abdominal and pelvis 1. No pulmonary embolus identified, sensitivity limited by respiratory motion artifact. 2. Diffuse lung disease, consistent with pulmonary edema and/or pneumonia. 3. Gallbladder distention and chronic wall thickening of the gallbladder which could reflect acute versus chronic cholecystitis. 4. Indeterminate left kidney mass which may be benign or malignant, nonemergent follow-up is recommended. (4) Shock: Code(s): R57.9 - Shock, unspecified Status: Acute Assessment and Plan: Currently afebrile, off Levophed -maintain mean arterial pressures > 65 mm Hg adequate end organ perfusion -continue antibiotics as above -10/21/2021 blood culture negative x2 -will reorder sputum culture (5) Congestive heart failure: Qualifiers: Heart failure chronicity: acute on chronic Heart failure type: unspecified Qualified Code(s): I50.9 - Heart failure, unspecified Code(s): I50.9 - Heart failure, unspecified Status: Acute Assessment and Plan: 10/18/2021 Echocardiogram: LV systolic function is 60-65%, LV diastolic function is abnormal, left atrial chamber severely enlarged, mild aortic valve sclerosis, mild mitral valve regurg, severe pulmonary hypertension with RVSP of 61 mmHg -cardiology following the patient -hold all antihypertensives as patient is on/off Levophed (6) COPD (chronic obstructive pulmonary disease): Code(s): J44.9 - Chronic obstructive pulmonary disease, unspecified Status: Acute Assessment and Plan: Continue bronchodilators, antibiotics and mechanical ventilation (7) Pneumonia: Code(s): J18.9 - Pneumonia, unspecified organism Status: Acute A
--- NOTE | 2021-10-23 13:47 | WPDGIPROGNO ---
Progress Note: A&P Assessment and Plan (1) Acute cholecystitis: Code(s): K81.0 - Acute cholecystitis Status: Acute Assessment and Plan: agree with percutaneous cholecystostomy tube, surgery is on the case she had biliary stent placement about 5 years ago (awaiting records) but right now there is not suggestion of biliary obstruction since she has normal bilirubin and I think she is quite sick to undergo ercp now but definitely will need to be addressed at later time (2) Septic shock: Code(s): A41.9 - Sepsis, unspecified organism; R65.21 - Severe sepsis with septic shock Status: Acute Assessment and Plan: resolved, off pressors (3) Pneumonia: Code(s): J18.9 - Pneumonia, unspecified organism Status: Acute Assessment and Plan: on abx (4) Encephalopathy: Code(s): G93.40 - Encephalopathy, unspecified Status: Acute (5) CVA (cerebral vascular accident): Code(s): I63.9 - Cerebral infarction, unspecified Status: Acute Assessment and Plan: CTA reviewed, old infarcts neurology on board (6) Atrial fibrillation: Code(s): I48.91 - Unspecified atrial fibrillation Status: Acute (7) Anemia: Code(s): D64.9 - Anemia, unspecified Status: Acute Assessment and Plan: chronic anemia with fobt + but no obvious overt gib she has several other reasons to have anemia such as ESRD on dialysis, sepsis, etc (8) History of biliary duct stent placement: Code(s): Z98.890 - Other specified postprocedural states Status: Chronic (9) Cardiac arrest: Code(s): I46.9 - Cardiac arrest, cause unspecified Status: Acute (10) ESRD (end stage renal disease) on dialysis: Code(s): N18.6 - End stage renal disease; Z99.2 - Dependence on renal dialysis Status: Acute Subjective Date/time seen: 10/23/21 13:47 Interval history: she has been off pressors since yesterday and now has been tolerating tube feeding. No report of overt gib. Review of Systems Review of Systems: ROS unobtainable: Yes unobtainable due to endotracheal tube Exam Narrative: General: Intubated and sedated HEENT: Pupils equal and reactive, sclera is clear, ETT in place Neck: Supple Respiratory: Coarse breath sounds bilaterally more at bases, decreased breath sounds at bases, adequate air entry, no wheezing Cardiac: Currently in sinus rhythm, rate controlled Abdomen: Soft, nontender, nondistended, hypoactive bowel sounds, obese, incisional hernia Extremities: Decreased pedal pulse, left is dopplerable, right is palpable Neuro: Patient is sedated and intubated. Does not open her eyes or follow simple commands, pupils are reactive, positive gag, cough, corneal reflex. Patient did withdraw to deep pain stimulation in her lower extremities bilaterally Skin: Chronic venous stasis changes on the lower extremities Psych: Unable to assess Objective Data Vital Signs Vital Signs: Vital Signs - 24 hr 10/22/21 14:17 10/22/21 14:19 10/22/21 14:20 Temperature Pulse Rate 108 H 107 H 125 H Respiratory Rate 21 H Blood Pressure 112/82 Pulse Oximetry 95 Oxygen Delivery Mechanical Ventilation Fraction of Inspired Oxygen 40 10/22/21 14:44 10/22/21 13:50 10/22/21 14:00 Temperature 98.8 F Pulse Rate 112 H 105 H 113 H Respiratory Rate 24 H 21 H Blood Pressure 95/60 L 112/82 Pulse Oximetry 99 Oxygen Delivery Fraction of Inspired Oxygen 10/22/21 14:00 10/22/21 14:00 10/22/21 16:00 Temperature 98.8 F Pulse Rate 109 H 109 H 109 H Respiratory Rate 21 H Blood Pressure 112/82 Pulse Oximetry 100 Oxygen Delivery Fraction of Inspired Oxygen 10/22/21 16:00 10/22/21 16:00 10/22/21 16:00 Temperature 99.6 F Pulse Rate 109 H 109 H Respiratory Rate 24 H 24 H Blood Pressure 132/90 Pulse Oximetry 94 94 Oxygen Delivery Mechanical Ventilation Fraction of Inspired Oxygen 40 40 08
[2021-10-23] MEDS: dexmedeTOMIDine 400 MCG/100 ML 400 MCG/100 ML BAG 5.26 MCG IV CONT (15:43)
[2021-10-23 15:58] LABS: Glucose Point of Care 184 mg/dl (65-105)
[2021-10-23] MEDS: NOREPINEPHRINE 8 MG/D5W 250 ML 8 MG/250 ML BAG 3.75 MG IV CONT (20:17)
--- NOTE | 2021-10-23 20:33 | PM.PNNEP ---
Progress Note: A&P Assessment and Plan (1) Anemia: Code(s): D64.9 - Anemia, unspecified Status: Acute (2) Pleural effusion in other conditions classified elsewhere: Code(s): J91.8 - Pleural effusion in other conditions classified elsewhere Status: Acute (3) Multinodular goiter: Code(s): E04.2 - Nontoxic multinodular goiter Status: Acute (4) Atrial fibrillation: Code(s): I48.91 - Unspecified atrial fibrillation Status: Acute (5) Anemia in CKD (chronic kidney disease): Code(s): N18.9 - Chronic kidney disease, unspecified; D63.1 - Anemia in chronic kidney disease Status: Acute (6) Pulmonary hypertension: Code(s): I27.20 - Pulmonary hypertension, unspecified Status: Acute (7) Diastolic dysfunction: Code(s): I51.89 - Other ill-defined heart diseases Status: Acute (8) Diastolic congestive heart failure: Code(s): I50.30 - Unspecified diastolic (congestive) heart failure Status: Acute (9) Encephalopathy: Code(s): G93.40 - Encephalopathy, unspecified Status: Acute (10) Pneumonia: Code(s): J18.9 - Pneumonia, unspecified organism Status: Acute (11) ESRD (end stage renal disease) on dialysis: Code(s): N18.6 - End stage renal disease; Z99.2 - Dependence on renal dialysis Status: Acute Plan 1. ESRD 2. DM2 3. AFIB W RVR- PAROXYSMAL 4. HTN 5. RESP FAILURE WITH PNEUMONIA 6. SYS AND DIASTOLIC CHF 7. PAD 8. ANEMIA OF CKD Subjective Date/time seen: 10/23/21 07:33 pt did well with dialysis yesterday. hemoglobin is dropping without obvious bleeding Exam Cardio: Other: rrr wo M/G/R GI: Other: NABS X 4 QUADS Skin: Other: NO C/C/E Objective Data Vital Signs Vital Signs: Vital Signs - 24 hr 10/22/21 22:00 10/22/21 23:47 10/23/21 00:00 Temperature Pulse Rate 97 94 Respiratory Rate 21 H Blood Pressure 127/68 Pulse Oximetry 100 97 Oxygen Delivery Mechanical Ventilation Fraction of Inspired Oxygen 40 40 10/23/21 00:00 10/23/21 04:00 10/23/21 04:00 Temperature Pulse Rate Respiratory Rate Blood Pressure Pulse Oximetry Oxygen Delivery Mechanical Ventilation Mechanical Ventilation Fraction of Inspired Oxygen 40 40 40 10/23/21 04:35 10/23/21 04:35 10/23/21 00:00 Temperature 38.1 C H Pulse Rate 82 82 101 H Respiratory Rate 30 H Blood Pressure 135/57 L 107/81 Pulse Oximetry 99 Oxygen Delivery Fraction of Inspired Oxygen 10/23/21 02:00 10/23/21 04:00 10/23/21 02:55 Temperature 37.9 C H 37.8 C H Pulse Rate 86 81 91 Respiratory Rate 23 H 16 Blood Pressure 126/65 135/57 L Pulse Oximetry 98 98 96 Oxygen Delivery Mechanical Ventilation Fraction of Inspired Oxygen 40 10/23/21 05:04 10/22/21 22:00 10/23/21 00:00 Temperature Pulse Rate 80 97 101 H Respiratory Rate Blood Pressure Pulse Oximetry 97 Oxygen Delivery Mechanical Ventilation Fraction of Inspired Oxygen 40 10/23/21 02:00 10/23/21 04:00 10/23/21 06:00 Temperature Pulse Rate 86 81 89 Respiratory Rate Blood Pressure Pulse Oximetry Oxygen Delivery Fraction of Inspired Oxygen 10/23/21 06:00 10/23/21 07:54 10/23/21 08:01 Temperature 37.8 C H Pulse Rate 89 82 85 Respiratory Rate 22 H 16 Blood Pressure 136/91 H Pulse Oximetry 91 95 Oxygen Delivery Mechanical Ventilation Fraction of Inspired Oxygen 40 10/23/21 08:03 10/23/21 08:00 10/23/21 08:23 Temperature Pulse Rate 85 95 85 Respiratory Rate 16 16 Blood Pressure Pulse Oximetry 95 Oxygen Delivery Mechanical Ventilation Fraction of Inspired Oxygen 40 10/23/21 08:30 10/23/21 08:30 10/23/21 08:39 Temperature Pulse Rate 85 85 86 Respiratory Rate 16 16 16 Blood Pressure Pulse Oximetry Oxygen Delivery Fraction of Inspired Oxygen 10/23/21 08:00 10/23/21 08:00 10/23/21 08:00 Temperature 37.6 C
[2021-10-23 21:08] LABS: Glucose Point of Care 201 mg/dl (65-105)
[2021-10-23] MEDS: EPOETIN ALFA-EPBX 20,000 UNITS/ML VIAL 20000 UNITS SUB-Q (21:12)
[2021-10-24] VITALS (26 sets, daily range): BP systolic 103–150; BP diastolic 52–72; PULSE 86–148; RESP 16–22; TEMP 37.1–37.9; O2SAT 95–100
[2021-10-24] MEDS: INSULIN ASPART (*BKC) 100 UNITS/ML SUB-Q ×3 (00:26→21:08)
[2021-10-24 00:37] LABS: Glucose Point of Care 201 mg/dl (65-105)
[2021-10-24] MEDS: IPRATROPIUM BR 0.02% INH SOLN 0.5 MG/2.5 ML VIAL INHALATION ×4 (03:13→20:28)
[2021-10-24] MEDS: ALBUTEROL SULFATE NEB 2.5 MG/3 ML INH INHALATION ×4 (03:13→20:28)
[2021-10-24 03:49] LABS: Basophils Absolute Auto 0.1 K/mm3 (0.0-0.1); Basophils Percent Auto 0.5 % (0.2-1.2); Eosinophils Absolute Auto 0.3 K/mm3 (0-0.3); Hematocrit 24.6 % (37.0-47.0); Hemoglobin 7.7 g/dL (12.0-15.0); Immature Granulocyte Absolute 0.22 K/mm3 (0.00-0.031); Immature Granulocyte Percent A 1.5 % (0-0.5); Lymphocytes Percent Auto 8.4 % (18.3-44.2); Mean Corpuscular HGB Conc 31.3 g/dl (32-36); Mean Corpuscular Hemoglobin 32.6 pg (26-34); Mean Corpuscular Volume 104.2 fl (80-100); Mean Platelet Volume 10.2 fl (7.4-10.4); Monocytes Absolute Auto 1.6 K/mm3 (0.1-0.6); Monocytes Percent Auto 11.1 % (2.6-8.5); Neutrophils Absolute Auto 10.9 K/mm3 (1.3-6.7); Neutrophils Percent Auto 76.5 % (45.5-73.1); Nucleated Red Blood Cells Perc 0.1 % (0.0-0.2); Platelet Count Result 304 k/mm3 (150-375); Red Blood Count 2.36 M/mm3 (4.2-5.4); Red Cell Distribution Width 15.1 % (11.5-14.5); White Blood Count 14.3 K/mm3 (4.5-10.0)
[2021-10-24 04:23] LABS: Alanine Aminotransferase 77 U/L (6-35); Albumin Level 3.6 g/dL (3.5-5.1); Alkaline Phosphatase 95 U/L (38-126); Anion Gap 16 mmol/L (8-16); Aspartate Amino Transferase 42 U/L (14-36); Bilirubin,Total 0.7 mg/dL (0.2-1.3); Blood Urea Nitrogen 68 mg/dL (7-17); Calcium 9.8 mg/dL (8.4-10.2); Carbon Dioxide 30 mmol/L (22-30); Chloride 89 mmol/L (98-107); Estimated CRCL calculation 13 ml/min; Estimated Glomerular Filt Rate 10; Glucose 190 mg/dL (65-110); Potassium 3.9 mmol/L (3.4-5.0); Sodium 135 mmol/L (137-145)
[2021-10-24] MEDS: CENTRAL LINE FLUSH 10 ML IV PUSH ×4 (05:01→20:51)
[2021-10-24 06:08] LABS: Alveolar/Arterial O2 Gradient 106.8 mmHg; Carboxyhemoglobin 0.3 % THb (0-2.0); Fractional Inspired Oxygen 35 %; HCO3 ABG 29.3 mEq/l (22.0-26.0); Methemoglobin ABG 0.2 %THb (0-1.5); Oxygen Content ABG 11.6 %vol (16.0-22.0); Oxygen Saturation ABG 97.4 % (95.0-100.0); Oxyhemoglobin 95.7 % THb (90.0-100.0); PCO2 ABG 42.6 mmHg (35.0-45.0); PO2 ABG 93.2 mmHg (80.0-100.0); PO2 FiO2 Ratio Arterial Blood 2.66 %; Reduced Hemoglobin 3.8 %THb (0-5.0); Total Hemoglobin 8.5 g/dL (12.0-18.0); pH ABG 7.456 (7.350-7.450)
--- NOTE | 2021-10-24 07:22 | ECG_ITS ---
Measurements Intervals Sims Rate: 114 P: IL: 0 QRS: -38 QRSD: 162 T: 92 QT: 390 QTc: 537 Interpretive Statements ATRIAL FIBRILLATION WITH RAPID VENTRICULAR RESPONSE MARKED LEFT AXIS DEVIATION [QRS AXIS < -30] LEFT BUNDLE BRANCH BLOCK [120+ ms QRS DURATION, 80+ ms Q/S IN V1/V2, 85+ ms R IN I/aVL/V5/V6] COMPARED TO ECG 10/20/2021 21:45:32 ATRIAL FIBRILLATION NOW PRESENT LEFT BUNDLE-BRANCH BLOCK NOW PRESENT Electronically Signed On 10-24-2021 15:09:56 CDT by Sowmya Manzo M.D.
--- NOTE | 2021-10-24 07:45 | PM.IMPN ---
Progress Note: A&P Assessment and Plan (1) Encephalopathy: Code(s): G93.40 - Encephalopathy, unspecified Status: Acute Assessment and Plan: Likely multifactorial, unknown etiology at this time, EEG was nonepileptic, appreciate Neurology consultation 10/23: Appears unchanged, continuing to attempt sedation 10/24: Unchanged, appreciate Neurology consultation (2) Cardiac arrest: Code(s): I46.9 - Cardiac arrest, cause unspecified Status: Acute Assessment and Plan: Cardiac arrest thought to be secondary to hypoxia and primary respiratory failure, status post CPR and 1 round of epi and vasopressin with ROSC (3) Acute respiratory failure: Code(s): J96.00 - Acute respiratory failure, unspecified whether with hypoxia or hypercapnia Status: Acute Assessment and Plan: Acute respiratory failure likely related to pulmonary edema, pneumonia, congestive heart failure pulmonary hypertension CTA done to rule out PE, negative, did show gallbladder wall thickening concerning for acute versus chronic cholecystitis, also noted left kidney mass, concerning for malignancy, would be metastatic due to primary pancreatic cancer noted 10/23: Continue vanc (started on 10/18), imipenem and Levaquin, day 6 of antibiotics 10/24: Continue antibiotics, day 7 (4) Shock: Code(s): R57.9 - Shock, unspecified Status: Acute Assessment and Plan: Primary source thought to be pneumonia, blood pressure is improving, stable off Levophed today 10/23: Cholecystitis could also be contributing source to sepsis, surgery consult pending Update: Spoke with general surgeon, Dr. Jolly, plan is for cholecystostomy tube today, will need to follow up regarding the placement of the biliary stent 5 years ago, records pending 10/24: Appears to be improving status post cholecystostomy tube (5) Congestive heart failure: Qualifiers: Heart failure chronicity: acute on chronic Heart failure type: unspecified Qualified Code(s): I50.9 - Heart failure, unspecified Code(s): I50.9 - Heart failure, unspecified Status: Acute Assessment and Plan: Diastolic heart failure noted with preserved EF, appreciate cardiology consultation Fluid status maintained by hemodialysis and Nephrology (6) COPD (chronic obstructive pulmonary disease): Code(s): J44.9 - Chronic obstructive pulmonary disease, unspecified Status: Acute Assessment and Plan: Continue bronchodilators, antibiotics and mechanical ventilation (7) Pneumonia: Code(s): J18.9 - Pneumonia, unspecified organism Status: Acute (8) Pulmonary hypertension: Code(s): I27.20 - Pulmonary hypertension, unspecified Status: Acute Assessment and Plan: Echocardiogram showed severe pulmonary hypertension (9) HTN (hypertension): Code(s): I10 - Essential (primary) hypertension Status: Acute Assessment and Plan: Restart antihypertensives when appropriate, currently off Levophed, monitor (10) CVA (cerebral vascular accident): Code(s): I63.9 - Cerebral infarction, unspecified Status: Acute Assessment and Plan: Appreciate neurology consultation, pending (11) Atrial fibrillation: Code(s): I48.91 - Unspecified atrial fibrillation Status: Acute Assessment and Plan: Appreciate cardiology consultation, suspected new onset atrial fibrillation secondary to cardiac arrest Cardiology changed to amiodarone from 200 mg IV to p.o. through the tube every 12 hours Continue to hold Eliquis due to worsening anemia with positive fecal occult (12) Diabetes mellitus: Code(s): E11.9 - Type 2 diabetes mellitus without complications Status: Acute Assessment and Plan: Hyperglycemia, continue Accu-Cheks, sliding scale insulin (13) Acute cholecystitis: Code(s): K81.0 - Acute cholecystitis Status: Acute Assessment
--- NOTE | 2021-10-24 08:01 | WPDGIPROGNO ---
Progress Note: A&P Assessment and Plan (1) Acute cholecystitis: Code(s): K81.0 - Acute cholecystitis Status: Acute Assessment and Plan: s/p percutaneous cholecystostomy tube, surgery is on the case she had biliary stent placement about 5 years ago but right now there is not suggestion of biliary obstruction since she has normal bilirubin (2) Septic shock: Code(s): A41.9 - Sepsis, unspecified organism; R65.21 - Severe sepsis with septic shock Status: Acute Assessment and Plan: resolved, off pressors on antibiotics (3) Pneumonia: Code(s): J18.9 - Pneumonia, unspecified organism Status: Acute Assessment and Plan: on abx (4) Encephalopathy: Code(s): G93.40 - Encephalopathy, unspecified Status: Acute (5) CVA (cerebral vascular accident): Code(s): I63.9 - Cerebral infarction, unspecified Status: Acute Assessment and Plan: CTA reviewed, old infarcts neurology on board (6) Atrial fibrillation: Code(s): I48.91 - Unspecified atrial fibrillation Status: Acute (7) Anemia: Code(s): D64.9 - Anemia, unspecified Status: Acute Assessment and Plan: chronic anemia with fobt + but no obvious overt gib however with ongoing A fib, primary team asking to proceed with egd before she can be on anticoagulation egd in am she has several other reasons to have anemia such as ESRD on dialysis, sepsis, etc (8) History of biliary duct stent placement: Code(s): Z98.890 - Other specified postprocedural states Status: Chronic (9) Cardiac arrest: Code(s): I46.9 - Cardiac arrest, cause unspecified Status: Acute (10) ESRD (end stage renal disease) on dialysis: Code(s): N18.6 - End stage renal disease; Z99.2 - Dependence on renal dialysis Status: Acute Assessment and Plan: by nephrology Subjective Date/time seen: 10/24/21 08:01 Interval history: s/p cholecystostomy tube placed yesterday, no major changes Review of Systems Review of Systems: All systems reviewed & are unremarkable except as noted in HPI and below Exam Narrative: General: Intubated and sedated HEENT: Pupils equal and reactive, sclera is clear, ETT in place Neck: Supple Respiratory: Coarse breath sounds bilaterally more at bases, decreased breath sounds at bases, adequate air entry, no wheezing Cardiac: Currently in sinus rhythm, rate controlled Abdomen: Soft, nontender, nondistended, hypoactive bowel sounds, obese, incisional hernia. Cholecystostomy tube in place with brown fluid Extremities: trace edema Neuro: Patient is sedated and intubated. Does not open her eyes or follow simple commands, pupils are reactive, positive gag, cough, corneal reflex. Patient did withdraw to deep pain stimulation in her lower extremities bilaterally Skin: Chronic venous stasis changes on the lower extremities Psych: Unable to assess Objective Data Vital Signs Vital Signs: Vital Signs - 24 hr 10/23/21 08:03 10/23/21 08:23 10/23/21 08:30 Temperature Pulse Rate 85 85 85 Respiratory Rate 16 16 Blood Pressure Pulse Oximetry Oxygen Delivery Fraction of Inspired Oxygen 10/23/21 08:30 10/23/21 08:39 10/23/21 10:00 Temperature 98.6 F Pulse Rate 85 86 87 Respiratory Rate 16 16 16 Blood Pressure 108/42 L Pulse Oximetry 96 Oxygen Delivery Fraction of Inspired Oxygen 10/23/21 10:00 10/23/21 11:19 10/23/21 11:38 Temperature Pulse Rate 87 84 89 Respiratory Rate 17 Blood Pressure 107/46 L Pulse Oximetry 97 96 Oxygen Delivery Mechanical Ventilation Fraction of Inspired Oxygen 40 10/23/21 11:47 10/23/21 12:00 10/23/21 12:00 Temperature 98.8 F Pulse Rate 85 84 Respiratory Rate 16 Blood Pressure Pulse Oximetry 98 Oxygen Delivery Mechanical Ventilation Fraction of Inspired Oxygen 40 10/23/21 14:00 10/23/21 14:00 10/23/21 13:27 Temperature
--- NOTE | 2021-10-24 08:13 | PM.PNCARD ---
Progress Note: A&P Assessment and Plan (1) Shock: Code(s): R57.9 - Shock, unspecified Status: Acute Assessment and Plan: Resolved off Levophed drip. Likely due to respiratory failure from pneumonia. Was on Levophed but no longer requiring it. 10/18/21 Echo: EF 60-65%, mild LVH, diastolic dysfunction with E/e' 33, severe LAE, mod MAC and mitral valve calcifications, mild MR, trace TR/PI, severe pulm hypertension with RVSP 61 mmHg. (2) Acute respiratory failure: Code(s): J96.00 - Acute respiratory failure, unspecified whether with hypoxia or hypercapnia Status: Acute Assessment and Plan: Ventilator managed by brush head maker. (3) Pneumonia: Code(s): J18.9 - Pneumonia, unspecified organism Status: Acute Assessment and Plan: On antibiotics per hospitalist. (4) HTN (hypertension): Code(s): I10 - Essential (primary) hypertension Status: Acute Assessment and Plan: Stable but off her home BP medications. Resume when BP starts to go up starting with Carvedilol, Olmesartan then Amlodipine in that order. (5) HLD (hyperlipidemia): Code(s): E78.5 - Hyperlipidemia, unspecified Status: Acute Assessment and Plan: On Atorvastatin. (6) Diastolic dysfunction: Code(s): I51.89 - Other ill-defined heart diseases Status: Acute Assessment and Plan: Fluid level controlled with HD. (7) ESRD (end stage renal disease) on dialysis: Code(s): N18.6 - End stage renal disease; Z99.2 - Dependence on renal dialysis Status: Acute Assessment and Plan: Fluid level controlled with HD. (8) Atrial fibrillation: Code(s): I48.91 - Unspecified atrial fibrillation Status: Acute Assessment and Plan: Back in atrial fibrillation. New onset on 10/19/21, then had atrial tachycardia/flutter on 10/20/21. Probably due to respiratory status. [id number] 5. If no contraindication will start her on anticoagulation with Eliquis 5 mg BID (for weight >60kg and age<80). Decreased aspirin 81 mg daily. Resumed Amiodarone drip and restored sinus rhythm. On Amiodarone 200 mg PO every 12 hours. If continues to be in atrial fib, consider Amiodarone drip to restore sinus rhythm. Eliquis on hold due to positive hemoccult and worsening anemia. Discuss with Dr. Puente, holding off on heparin drip due to significant anemia and positive hemccolt. Plan on endoscopy in AM. Subjective Date/time seen: 10/24/21 08:13 Not waking up off sedation, on ventilator. Exam Const: Other: Sedated on ventilator Resp: Auscultation: no crackles, no rales, no rhonchi, no wheezes and diminished lung sounds Cardio: Jugular venous distension: no JVD Rate: regular rate Rhythm: regular rhythm Heart sounds: no murmurs Peripheral pulses: dorsalis pedis present GI: GI Palp: No abdominal tenderness and Yes Soft to palpation Extrem: Right lower extremity: no edema Left lower extremity: no edema Objective Data Vital Signs Vital Signs: Vital Signs - 24 hr 10/23/21 08:23 10/23/21 08:30 10/23/21 08:30 Temperature Pulse Rate 85 85 85 Respiratory Rate 16 16 Blood Pressure Pulse Oximetry Oxygen Delivery Fraction of Inspired Oxygen 10/23/21 08:39 10/23/21 10:00 10/23/21 10:00 Temperature 98.6 F Pulse Rate 86 87 87 Respiratory Rate 16 16 Blood Pressure 108/42 L Pulse Oximetry 96 Oxygen Delivery Fraction of Inspired Oxygen 10/23/21 11:19 10/23/21 11:38 10/23/21 11:47 Temperature 98.8 F Pulse Rate 84 89 Respiratory Rate 17 Blood Pressure 107/46 L Pulse Oximetry 97 96 Oxygen Delivery Mechanical Ventilation Fraction of Inspired Oxygen 40 10/23/21 12:00 10/23/21 12:00 10/23/21 14:00 Temperature Pulse Rate 85 84 80 Respiratory Rate 16 Blood Pressure Pulse Oximetry 98 Oxygen Delivery Mechanical Ventilation Fraction of Inspired Oxygen 40 10/23/21 14:00 10/23/21 13:27 10/23/21
[2021-10-24] MEDS: ATORVASTATIN 20 MG TABLET PO (08:15)
[2021-10-24] MEDS: ASPIRIN 81 MG ENTERIC TABLET PO (08:15)
[2021-10-24] MEDS: PANTOPRAZOLE SODIUM IV 40 MG VIAL IV PUSH ×2 (08:15→20:50)
[2021-10-24] MEDS: AMIODARONE HCL 200 MG TABLET PO ×2 (08:15→20:50)
[2021-10-24] MEDS: MINERAL OIL/WHITE PETROLATUM OINTMENT 1 APPLIC EACH EYE ×2 (08:15→20:51)
[2021-10-24] MEDS: INSULIN GLARGINE (*BKC) 100 UNITS/ML 30 UNITS SUB-Q (08:19)
[2021-10-24 08:26] LABS: Glucose Point of Care 218 mg/dl (65-105)
[2021-10-24] MEDS: METOPROLOL TARTRATE 12.5 MG TABLET PO ×2 (10:48→20:50)
[2021-10-24 12:08] LABS: Glucose Point of Care 191 mg/dl (65-105)
--- NOTE | 2021-10-24 12:19 | WPDINTPN ---
Progress Note: A&P Assessment and Plan (1) Encephalopathy: Code(s): G93.40 - Encephalopathy, unspecified Status: Acute Assessment and Plan: Encephalopathy could be multifactorial, cardiac arrest, anoxic injury, metabolic causes, infection -10/21 EEG showed diffuse slowing with triphasic waves may be seen in setting of metabolic encephalopathy, there were no epileptiform discharges. -neurology following the patient -sedation has been held to evaluate for mental status -will repeat EEG and CT brain on 10/25 -will discuss with Neurology (2) Cardiac arrest: Code(s): I46.9 - Cardiac arrest, cause unspecified Status: Acute Assessment and Plan: 10/18; Cardiac arrest with CPR and 1 round of epi and vasopressin with ROSC -likely cause of cardiac arrest was respiratory failure, hypoxia -troponins have plateaued, no acute coronary syndrome as a cause of cardiac arrest per Cardiology -status post target temperature management post cardiac arrest -off all sedation, remains encephalopathic -will repeat EEG and CT brain is above (3) Acute respiratory failure: Code(s): J96.00 - Acute respiratory failure, unspecified whether with hypoxia or hypercapnia Status: Acute Assessment and Plan: Acute respiratory failure likely related to pulmonary edema, pneumonia, congestive heart failure pulmonary hypertension -she presented the outside hospital with shortness of breath and hypoxia for few days, patient was being transferred to [facility] in an ambulance which she rested secondary to hypoxic respiratory failure - patient intubated on 10/18/2021 -chest x-ray 10/23: Stable diffuse lung disease, consistent with pulmonary edema versus pneumonia -ABGs reviewed, ventilator adjusted to increase PEEP to 10, currently on 40% FiO2 -sedated with propofol infusion for sedation, daily sedation vacation to assess mental status -discussed with pulmonology, no bronchoscopy, he will order a viral panel -continue vancomycin 10/18, doxycycline 10/18, imipenem 10/21 -also on Levaquin (10/22)(will does according to dialysis) 10/23: Leukocytosis improving, fevers have resolved 10/21/2021 CTA chest PE protocol along with abdominal and pelvis 1. No pulmonary embolus identified, sensitivity limited by respiratory motion artifact. 2. Diffuse lung disease, consistent with pulmonary edema and/or pneumonia. 3. Gallbladder distention and chronic wall thickening of the gallbladder which could reflect acute versus chronic cholecystitis. 4. Indeterminate left kidney mass which may be benign or malignant, nonemergent follow-up is recommended. (4) Shock: Code(s): R57.9 - Shock, unspecified Status: Acute Assessment and Plan: Currently afebrile, off Levophed -maintain mean arterial pressures > 65 mm Hg adequate end organ perfusion -continue antibiotics as above -10/21/2021 blood culture negative x2 -10/23/2021 cultures from cholecystostomy drainage, is pending -10/24/2021 sputum cultures obtained and pending - (5) Congestive heart failure: Qualifiers: Heart failure chronicity: acute on chronic Heart failure type: unspecified Qualified Code(s): I50.9 - Heart failure, unspecified Code(s): I50.9 - Heart failure, unspecified Status: Acute Assessment and Plan: 10/18/2021 Echocardiogram: LV systolic function is 60-65%, LV diastolic function is abnormal, left atrial chamber severely enlarged, mild aortic valve sclerosis, mild mitral valve regurg, severe pulmonary hypertension with RVSP of 61 mmHg -cardiology following the patient -hold all antihypertensives as patient is on/off Levophed (6) COPD (chronic obstructive pulmonary disease): Code(s): J44.9 - Chronic obstructive pulmonary disease, unspecified Status: Acute Assessment and Plan: Continue bronchodilators, antibiotics and mechanical ventilation (7) Pneumonia: Code(s): J18.9 - Pneumonia, unspecified organis
[2021-10-24] MEDS: METOCLOPRAMIDE HCL INJ 10 MG/2 ML VIAL IV PUSH ×3 (13:16→23:32)
[2021-10-24 13:18] LABS: Ammonia < 9 umol/L (9-30)
[2021-10-24] MEDS: levoFLOXacin 500 MG/D5W 100 ML 500 MG/100 ML BAG 100 MG IVPB (13:40)
--- NOTE | 2021-10-24 15:24 | PM.PNGS ---
Progress Note: A&P Assessment and Plan (1) Acute cholecystitis: Code(s): K81.0 - Acute cholecystitis Status: Acute Assessment and Plan: Cholecystostomy tube in place and working well. (2) History of biliary duct stent placement: Code(s): Z98.890 - Other specified postprocedural states Status: Chronic Assessment and Plan: Dr. Pelayo following. (3) Acute respiratory failure: Code(s): J96.00 - Acute respiratory failure, unspecified whether with hypoxia or hypercapnia Status: Acute Assessment and Plan: Stable on vent (4) ESRD (end stage renal disease) on dialysis: Code(s): N18.6 - End stage renal disease; Z99.2 - Dependence on renal dialysis Status: Acute (5) Septic shock: Code(s): A41.9 - Sepsis, unspecified organism; R65.21 - Severe sepsis with septic shock Status: Acute Assessment and Plan: Antibiotics being continued as well as critical care measures Subjective Subjective Date/Time Seen: 10/24/21 15:24 Post Op day: 1 (Placement cholecystostomy tube 10/23/2021) Patient reports: other (Sedated on mechanical ventilator) Review of Systems Review of Systems: ROS unobtainable: Yes unobtainable due to endotracheal tube Exam Narrative: T-max 38.0?. Overall temperature curve is decreasing Const: General: patient obtunded GI: Inspection: non-distended and other (A lot of bile in cholecystostomy tube bag, working well) GI Palp: Yes Soft to palpation Auscultation: Hypoactive bowel sounds present Objective Data Vital Signs Vital Signs: Vital Signs - 24 hr 10/23/21 15:43 10/23/21 16:00 10/23/21 16:00 Temperature Pulse Rate 91 90 89 Respiratory Rate 23 H 16 16 Blood Pressure 121/47 L Pulse Oximetry 96 96 Oxygen Delivery Mechanical Ventilation Fraction of Inspired Oxygen 40 10/23/21 16:00 10/23/21 18:00 10/23/21 18:00 Temperature Pulse Rate 91 86 84 Respiratory Rate 19 Blood Pressure 105/46 L Pulse Oximetry 97 Oxygen Delivery Fraction of Inspired Oxygen 10/23/21 18:06 10/23/21 20:00 10/23/21 20:40 Temperature 38.0 C H Pulse Rate 84 88 89 Respiratory Rate 16 23 H Blood Pressure 103/42 L 113/45 L Pulse Oximetry 97 96 95 Oxygen Delivery Mechanical Ventilation Fraction of Inspired Oxygen 35 10/23/21 20:17 10/23/21 20:29 10/23/21 20:29 Temperature Pulse Rate 84 84 Respiratory Rate 16 Blood Pressure 103/42 L Pulse Oximetry 97 Oxygen Delivery Mechanical Ventilation Fraction of Inspired Oxygen 35 10/23/21 20:50 10/23/21 22:10 10/23/21 20:00 Temperature Pulse Rate 89 Respiratory Rate Blood Pressure 111/52 L Pulse Oximetry Oxygen Delivery Fraction of Inspired Oxygen 40 10/23/21 20:00 10/24/21 00:00 10/24/21 00:00 Temperature Pulse Rate Respiratory Rate Blood Pressure Pulse Oximetry Oxygen Delivery Mechanical Ventilation Mechanical Ventilation Fraction of Inspired Oxygen 40 40 40 10/23/21 20:00 10/23/21 22:00 10/24/21 00:00 Temperature Pulse Rate 85 85 91 Respiratory Rate Blood Pressure Pulse Oximetry Oxygen Delivery Fraction of Inspired Oxygen 10/24/21 02:00 10/23/21 22:00 10/24/21 00:00 Temperature 37.9 C H Pulse Rate 91 85 93 Respiratory Rate 16 21 H Blood Pressure 111/52 L 134/58 L Pulse Oximetry 96 95 Oxygen Delivery Fraction of Inspired Oxygen 10/24/21 02:00 10/24/21 03:14 10/24/21 03:14 Temperature Pulse Rate 91 87 87 Respiratory Rate 18 16 Blood Pressure 127/53 L Pulse Oximetry 97 97 Oxygen Delivery Mechanical Ventilation Fraction of Inspired Oxygen 35 10/23/21 23:10 10/23/21 20:35 10/24/21 04:00 Temperature Pulse Rate 88 88 Respiratory Rate 16 Blood Pressure Pulse Oximetry 96 Oxygen Delivery Mechanical Ventilation Fraction of Inspired Oxygen 35 35 10/24/21 04:00 10/24/21 04:00 10/24/21 04:00 [place]
[2021-10-24] MEDS: ALTEPLASE 2 MG VIAL (CATHFLO) IV PUSH ×2 (15:28→15:29)
[2021-10-24 17:00] LABS: Glucose Point of Care 176 mg/dl (65-105)
[2021-10-24 21:12] LABS: Glucose Point of Care 203 mg/dl (65-105)
[2021-10-24 23:40] LABS: Glucose Point of Care 168 mg/dl (65-105)
[2021-10-25] VITALS (47 sets, daily range): BP systolic 97–144; BP diastolic 49–91; PULSE 96–127; RESP 16–26; TEMP 35.5–37.9; O2SAT 95–100
[2021-10-25] MEDS: ALBUTEROL SULFATE NEB 2.5 MG/3 ML INH INHALATION ×4 (02:55→19:43)
[2021-10-25] MEDS: IPRATROPIUM BR 0.02% INH SOLN 0.5 MG/2.5 ML VIAL INHALATION ×4 (02:55→19:43)
[2021-10-25 03:55] LABS: Glucose Point of Care 180 mg/dl (65-105)
[2021-10-25 04:52] LABS: Basophils Absolute Auto 0.1 K/mm3 (0.0-0.1); Basophils Percent Auto 0.4 % (0.2-1.2); Eosinophils Absolute Auto 0.2 K/mm3 (0-0.3); Eosinophils Percent Auto 1.5 % (0-4.4); Hematocrit 23.2 % (37.0-47.0); Hemoglobin 7.2 g/dL (12.0-15.0); Immature Granulocyte Absolute 0.15 K/mm3 (0.00-0.031); Immature Granulocyte Percent A 1.2 % (0-0.5); Lymphocytes Absolute Auto 1.23 K/mm3 (0.9-3.2); Lymphocytes Percent Auto 9.8 % (18.3-44.2); Mean Corpuscular Hemoglobin 32.3 pg (26-34); Mean Platelet Volume 9.7 fl (7.4-10.4); Monocytes Absolute Auto 1.4 K/mm3 (0.1-0.6); Monocytes Percent Auto 10.9 % (2.6-8.5); Neutrophils Absolute Auto 9.5 K/mm3 (1.3-6.7); Neutrophils Percent Auto 76.2 % (45.5-73.1); Platelet Count Result 283 k/mm3 (150-375); Red Blood Count 2.23 M/mm3 (4.2-5.4); Red Cell Distribution Width 15.1 % (11.5-14.5); White Blood Count 12.5 K/mm3 (4.5-10.0)
[2021-10-25 05:04] LABS: Alanine Aminotransferase 56 U/L (6-35); Albumin Level 3.5 g/dL (3.5-5.1); Alkaline Phosphatase 86 U/L (38-126); Anion Gap 15 mmol/L (8-16); Aspartate Amino Transferase 42 U/L (14-36); Bilirubin,Total 0.5 mg/dL (0.2-1.3); Blood Urea Nitrogen 89 mg/dL (7-17); Calcium 9.4 mg/dL (8.4-10.2); Carbon Dioxide 30 mmol/L (22-30); Chloride 90 mmol/L (98-107); Estimated CRCL calculation 9 ml/min; Estimated Glomerular Filt Rate 7; Glucose 177 mg/dL (65-110); Magnesium 2.4 mg/dL (1.6-2.3); Phosphorus 6.5 mg/dL (2.5-4.5); Potassium 4.2 mmol/L (3.4-5.0); Sodium 135 mmol/L (137-145)
[2021-10-25] MEDS: METOCLOPRAMIDE HCL INJ 10 MG/2 ML VIAL IV PUSH ×3 (05:25→23:34)
[2021-10-25] MEDS: CENTRAL LINE FLUSH 10 ML IV PUSH ×4 (05:25→20:37)
[2021-10-25 05:42] LABS: Alveolar/Arterial O2 Gradient 66.2 mmHg; Base Excess ABG 0.3 mEq/l (+/-2.0); Carboxyhemoglobin 0.3 % THb (0-2.0); Fractional Inspired Oxygen 35 %; HCO3 ABG 23.3 mEq/l (22.0-26.0); Methemoglobin ABG 0.4 %THb (0-1.5); Oxygen Content ABG 8.6 %vol (16.0-22.0); Oxygen Saturation ABG 99.1 % (95.0-100.0); Oxyhemoglobin 97.2 % THb (90.0-100.0); PCO2 ABG 29.7 mmHg (35.0-45.0); PO2 ABG 148.8 mmHg (80.0-100.0); PO2 FiO2 Ratio Arterial Blood 4.25 %; Reduced Hemoglobin 2.1 %THb (0-5.0)
[2021-10-25 05:46] LABS: pH ABG 7.513 (7.350-7.450)
[2021-10-25 05:48] LABS: Device VENTILATOR; Modified Allen's Test Pass; Site Drawn RIGHT RADIAL
[2021-10-25 05:49] LABS: Arterial Blood Gas Ventilator rate 16 /MIN
[2021-10-25 05:50] LABS: Arterial Blood Gas PEEP 10 cmH2O; Arterial Blood Gas Tidal Volume 450 ml; Arterial Blood Gas Vent Mode CMV
[2021-10-25 06:02] LABS: Haptoglobin 185 mg/dL (43-212)
--- NOTE | 2021-10-25 06:27 | PM.PNNEP ---
Subjective Date/time seen: 10/25/21 06:27 Objective Data Vital Signs Vital Signs: Vital Signs - 24 hr 10/24/21 08:15 10/24/21 08:15 10/24/21 08:15 Temperature Pulse Rate 124 H 114 H 114 H Respiratory Rate 18 Blood Pressure Pulse Oximetry 98 Oxygen Delivery Mechanical Ventilation Fraction of Inspired Oxygen 35 10/24/21 08:25 10/24/21 10:48 10/24/21 08:00 Temperature Pulse Rate 118 H 105 H 148 H Respiratory Rate Blood Pressure Pulse Oximetry Oxygen Delivery Fraction of Inspired Oxygen 10/24/21 08:00 10/24/21 08:00 10/24/21 08:00 Temperature 37.1 C Pulse Rate 116 H Respiratory Rate 20 Blood Pressure 111/54 L Pulse Oximetry 98 98 Oxygen Delivery Mechanical Ventilation Fraction of Inspired Oxygen 35 35 10/24/21 10:00 10/24/21 10:00 10/24/21 11:18 Temperature 37.2 C Pulse Rate 114 H 114 H 114 H Respiratory Rate 18 Blood Pressure 134/64 Pulse Oximetry 98 98 Oxygen Delivery Mechanical Ventilation Fraction of Inspired Oxygen 35 10/24/21 13:31 10/24/21 13:32 10/24/21 12:00 Temperature Pulse Rate 110 H 110 H 122 H Respiratory Rate 19 Blood Pressure Pulse Oximetry Oxygen Delivery Mechanical Ventilation Fraction of Inspired Oxygen 35 10/24/21 12:00 10/24/21 12:00 10/24/21 12:00 Temperature 37.3 C Pulse Rate 120 H Respiratory Rate 22 H Blood Pressure 150/72 H Pulse Oximetry 99 99 Oxygen Delivery Mechanical Ventilation Fraction of Inspired Oxygen 35 35 10/24/21 14:00 10/24/21 14:00 10/24/21 16:00 Temperature 37.4 C Pulse Rate 109 H 109 H 101 H Respiratory Rate 18 Blood Pressure 103/63 Pulse Oximetry 99 Oxygen Delivery Fraction of Inspired Oxygen 10/24/21 16:35 10/24/21 16:00 10/24/21 16:00 Temperature 37.7 C H Pulse Rate 103 H 108 H Respiratory Rate 16 Blood Pressure 119/62 Pulse Oximetry 100 100 Oxygen Delivery Mechanical Ventilation Fraction of Inspired Oxygen 35 30 10/24/21 16:00 10/24/21 18:00 10/24/21 18:00 Temperature 37.6 C Pulse Rate 113 H 113 H Respiratory Rate 18 Blood Pressure 130/68 Pulse Oximetry 99 97 Oxygen Delivery Mechanical Ventilation Fraction of Inspired Oxygen 30 10/24/21 20:24 10/24/21 20:27 10/24/21 20:50 Temperature Pulse Rate 127 H 112 H 110 H Respiratory Rate 16 Blood Pressure Pulse Oximetry 96 Oxygen Delivery Mechanical Ventilation Fraction of Inspired Oxygen 35 10/24/21 20:50 10/24/21 20:00 10/24/21 20:00 Temperature Pulse Rate 122 H 115 H 115 H Respiratory Rate 19 Blood Pressure Pulse Oximetry 96 Oxygen Delivery Mechanical Ventilation Fraction of Inspired Oxygen 35 10/24/21 20:00 10/24/21 20:00 10/24/21 22:00 Temperature 37.5 C Pulse Rate 115 H 105 H Respiratory Rate 19 Blood Pressure 116/56 L Pulse Oximetry 96 Oxygen Delivery Fraction of Inspired Oxygen 35 10/24/21 22:00 10/25/21 00:00 10/25/21 00:00 Temperature 37.6 C Pulse Rate 105 H 107 H 107 H Respiratory Rate 16 16 Blood Pressure 112/52 L Pulse Oximetry 98 99 Oxygen Delivery Mechanical Ventilation Fraction of Inspired Oxygen 35 10/25/21 00:00 10/25/21 00:00 10/25/21 02:00 Temperature 37.7 C H Pulse Rate 107 H 100 Respiratory Rate 16 Blood Pressure 102/54 L Pulse Oximetry 99 Oxygen Delivery Fraction of Inspired Oxygen 35 10/25/21 02:00 10/25/21 02:53 10/25/21 02:53 Temperature 37.6 C H Pulse Rate 100 106 H 106 H Respiratory Rate 16 16 Blood Pressure 97/49 L Pulse Oximetry 98 97 Oxygen Delivery Mechanical Ventilation Fraction of Inspired Oxygen 35 10/24/21 20:35 10/25/21 03:09 10/25/21 04:00 Temperature Pulse Rate 112 H 105 H 111 H Respiratory Rate 16 16 Blood Pressure Pulse Oximetry Oxygen Delivery Fraction of Inspired Oxygen 10/25/21 04:00 10/25/21 04:00 10/25/21 04:00 Temperature 37.4 C Pulse R
--- NOTE | 2021-10-25 06:33 | ECG_ITS ---
Measurements Intervals [place] Rate: 112 P: MT: 0 QRS: -32 QRSD: 160 T: 93 QT: 374 QTc: 511 Interpretive Statements ATRIAL FIBRILLATION WITH RAPID VENTRICULAR RESPONSE LEFT BUNDLE BRANCH BLOCK ABNORMAL ECG COMPARED TO ECG 10/24/2021 07:05:08 NO SIGNIFICANT CHANGES Electronically Signed On 10-28-2021 15:01:14 CDT by Kurtis Rogers M.D.
--- NOTE | 2021-10-25 06:53 | ECG_ITS ---
Measurements Intervals [place] Rate: 113 P: OR: 0 QRS: -47 QRSD: 162 T: 90 QT: 363 QTc: 499 Interpretive Statements ATRIAL FIBRILLATION WITH RAPID VENTRICULAR RESPONSE LEFT AXIS DEVIATION LEFT BUNDLE BRANCH BLOCK ABNORMAL ECG COMPARED TO ECG 10/24/2021 07:05:08 NO SIGNIFICANT CHANGES Electronically Signed On 10-25-2021 16:26:31 CDT by Kurtis Rogers M.D.
--- NOTE | 2021-10-25 07:19 | PM.IMPN ---
Progress Note: A&P Assessment and Plan (1) Encephalopathy: Code(s): G93.40 - Encephalopathy, unspecified Status: Acute Assessment and Plan: Likely multifactorial, unknown etiology at this time, EEG was nonepileptic, appreciate Neurology consultation 10/23: Appears unchanged, continuing to attempt sedation 10/24: Unchanged, appreciate Neurology consultation 10/25: Off sedation now for a few days, no improvement, very poor prognosis (2) Cardiac arrest: Code(s): I46.9 - Cardiac arrest, cause unspecified Status: Acute Assessment and Plan: Cardiac arrest thought to be secondary to hypoxia and primary respiratory failure, status post CPR and 1 round of epi and vasopressin with ROSC (3) Acute respiratory failure: Code(s): J96.00 - Acute respiratory failure, unspecified whether with hypoxia or hypercapnia Status: Acute Assessment and Plan: Acute respiratory failure likely related to pulmonary edema, pneumonia, congestive heart failure pulmonary hypertension CTA done to rule out PE, negative, did show gallbladder wall thickening concerning for acute versus chronic cholecystitis, also noted left kidney mass, concerning for malignancy, would be metastatic due to primary pancreatic cancer noted 10/23: Continue vanc (started on 10/18), imipenem and Levaquin, day 6 of antibiotics 10/24: Continue antibiotics, day 7 10/25: Antibiotic day 8 (4) Shock: Code(s): R57.9 - Shock, unspecified Status: Acute Assessment and Plan: Primary source thought to be pneumonia, blood pressure is improving, stable off Levophed today 10/23: Cholecystitis could also be contributing source to sepsis, surgery consult pending Update: Spoke with general surgeon, Dr. Jolly, plan is for cholecystostomy tube today, will need to follow up regarding the placement of the biliary stent 5 years ago, records pending 10/24: Appears to be improving status post cholecystostomy tube 10/25: White count improved from yesterday (5) Congestive heart failure: Qualifiers: Heart failure chronicity: acute on chronic Heart failure type: unspecified Qualified Code(s): I50.9 - Heart failure, unspecified Code(s): I50.9 - Heart failure, unspecified Status: Acute Assessment and Plan: Diastolic heart failure noted with preserved EF, appreciate cardiology consultation Fluid status maintained by hemodialysis and Nephrology (6) COPD (chronic obstructive pulmonary disease): Code(s): J44.9 - Chronic obstructive pulmonary disease, unspecified Status: Acute Assessment and Plan: Continue bronchodilators, antibiotics and mechanical ventilation (7) Pneumonia: Code(s): J18.9 - Pneumonia, unspecified organism Status: Acute Assessment and Plan: Suspect any pneumonia has now resolved Sputum culture showed yeast, day 8 of antibiotics for empiric coverage (8) Pulmonary hypertension: Code(s): I27.20 - Pulmonary hypertension, unspecified Status: Acute Assessment and Plan: Echocardiogram showed severe pulmonary hypertension (9) HTN (hypertension): Code(s): I10 - Essential (primary) hypertension Status: Acute Assessment and Plan: Restart antihypertensives when appropriate, currently off Levophed, monitor (10) CVA (cerebral vascular accident): Code(s): I63.9 - Cerebral infarction, unspecified Status: Acute Assessment and Plan: Appreciate neurology consultation, pending (11) Atrial fibrillation: Code(s): I48.91 - Unspecified atrial fibrillation Status: Acute Assessment and Plan: Appreciate cardiology consultation, suspected new onset atrial fibrillation secondary to cardiac arrest Cardiology changed to amiodarone from 200 mg IV to p.o. through the tube every 12 hours Continue to hold Eliquis due to worsening anemia with positive fecal occult (12) Diabetes mellitus:
[2021-10-25] MEDS: ASPIRIN 81 MG ENTERIC TABLET PO (07:39)
[2021-10-25] MEDS: AMIODARONE HCL 200 MG TABLET PO ×2 (07:39→20:37)
[2021-10-25] MEDS: METOPROLOL TARTRATE 12.5 MG TABLET PO ×2 (07:40→08:23)
[2021-10-25] MEDS: ATORVASTATIN 20 MG TABLET PO (07:40)
[2021-10-25 07:45] LABS: Glucose Point of Care 221 mg/dl (65-105)
--- NOTE | 2021-10-25 07:54 | PM.PNCARD ---
Progress Note: A&P Assessment and Plan (1) Shock: Code(s): R57.9 - Shock, unspecified Status: Acute Assessment and Plan: Resolved off Levophed drip. Likely due to respiratory failure from pneumonia. Was on Levophed but no longer requiring it. 10/18/21 Echo: EF 60-65%, mild LVH, diastolic dysfunction with E/e' 33, severe LAE, mod MAC and mitral valve calcifications, mild MR, trace TR/PI, severe pulm hypertension with RVSP 61 mmHg. (2) Acute respiratory failure: Code(s): J96.00 - Acute respiratory failure, unspecified whether with hypoxia or hypercapnia Status: Acute Assessment and Plan: Ventilator managed by flex o writer operator. (3) Pneumonia: Code(s): J18.9 - Pneumonia, unspecified organism Status: Acute Assessment and Plan: On antibiotics per hospitalist. (4) HTN (hypertension): Code(s): I10 - Essential (primary) hypertension Status: Acute Assessment and Plan: Stable but off her home BP medications. Resume when BP starts to go up starting with Carvedilol or Metoprolol, Olmesartan then Amlodipine in that order. (5) HLD (hyperlipidemia): Code(s): E78.5 - Hyperlipidemia, unspecified Status: Acute Assessment and Plan: On Atorvastatin. (6) Diastolic dysfunction: Code(s): I51.89 - Other ill-defined heart diseases Status: Acute Assessment and Plan: Fluid level controlled with HD. (7) ESRD (end stage renal disease) on dialysis: Code(s): N18.6 - End stage renal disease; Z99.2 - Dependence on renal dialysis Status: Acute Assessment and Plan: Fluid level controlled with HD. (8) Atrial fibrillation: Code(s): I48.91 - Unspecified atrial fibrillation Status: Acute Assessment and Plan: Back in atrial fibrillation. New onset on 10/19/21, then had atrial tachycardia/flutter on 10/20/21. Probably due to respiratory status. [id number] 5. If no contraindication will start her on anticoagulation with Eliquis 5 mg BID (for weight >60kg and age<80). Decreased aspirin 81 mg daily. Resumed Amiodarone drip and restored sinus rhythm. On Amiodarone 200 mg PO every 12 hours. If continues to be in atrial fib, consider Amiodarone drip to restore sinus rhythm. Eliquis on hold due to positive hemoccult and worsening anemia. Discuss with Dr. Puente, holding off on heparin drip due to significant anemia and positive hemccolt. Plan on endoscopy today. Increase Metoprolol Tartate 25 mg PO BID for rate control. Subjective Date/time seen: 10/25/21 07:54 Not waking up, on ventilator. Exam Const: Other: Sedated on ventilator Resp: Auscultation: no crackles, no rales, no rhonchi, no wheezes and diminished lung sounds Cardio: Jugular venous distension: no JVD Rate: tachycardic Rhythm: abnormal rhythm Heart sounds: no murmurs Peripheral pulses: dorsalis pedis present GI: GI Palp: No abdominal tenderness and Yes Soft to palpation Extrem: Right lower extremity: no edema Left lower extremity: no edema Objective Data Vital Signs Vital Signs: Vital Signs - 24 hr 10/24/21 08:15 10/24/21 08:15 10/24/21 08:15 Temperature Pulse Rate 124 H 114 H 114 H Respiratory Rate 18 Blood Pressure Pulse Oximetry 98 Oxygen Delivery Mechanical Ventilation Fraction of Inspired Oxygen 35 10/24/21 08:25 10/24/21 10:48 10/24/21 08:00 Temperature Pulse Rate 118 H 105 H 148 H Respiratory Rate Blood Pressure Pulse Oximetry Oxygen Delivery Fraction of Inspired Oxygen 10/24/21 08:00 10/24/21 08:00 10/24/21 08:00 Temperature 98.8 F Pulse Rate 116 H Respiratory Rate 20 Blood Pressure 111/54 L Pulse Oximetry 98 98 Oxygen Delivery Mechanical Ventilation Fraction of Inspired Oxygen 35 35 10/24/21 10:00 10/24/21 10:00 10/24/21 11:18 Temperature 98.9 F Pulse Rate 114 H 114 H 114 H Respiratory Rate 18 Blood Pressure 134/64 Pulse Oximetry 98 98 Oxygen Del
[2021-10-25] MEDS: INSULIN ASPART (*BKC) 100 UNITS/ML SUB-Q ×2 (07:58→23:34)
[2021-10-25] MEDS: PANTOPRAZOLE SODIUM IV 40 MG VIAL IV PUSH ×2 (08:23→20:37)
--- NOTE | 2021-10-25 09:51 | WPDNEUROLOGY ---
Neurology EEG Report General Information Date of Study: 10/25/21 TEST eeg DIAGNOSIS Encephalopathy CONDITION OF RECORDING unresponsive, multiple eye movement artifacts throughout the tracing. EEG NUMBER [id number] CLINICAL HISTORY repeat EEG on a patient that is on vent and remains unresponsive with no sedation. Status post cardiac arrest EEG DESCRIPTION whole record consists of bihemispheric low to medium voltage 2 to 3 hertz per 2nd delta activity admixed with triphasic waves. Non paroxysmal. Nonfocal. Nonlateralizing. IMPRESSION Abnormal record due to absence of normal background rhythm and presence of bihemispheric slow activity admixed with a triphasic waves. Previous tracing no significant changes noted. These abnormalities are suggestive of underlying organic a metabolic encephalopathy again clinical correlation recommended
--- NOTE | 2021-10-25 12:01 | PCFNICU ---
ICU Rounding Note: Pt current nutrition is NPO. Last recorded weight is 104.6 kg, down from 110 kg on admit. Bowel Motility:+BM reported 10/25 Labs Reviewed:Glu 177, BUN 89, Cr 6.10,Na 135, Hct 23.2,Hgb 7.2 Meds Noted:Eliquis,Zosyn, Lantus, NovoLog, Protonix, Atrovent, Lipitor Skin: WNL Additional Notes:Patient remains on mechanical vent. Tube feedings on hold for EGD. Dialysis today. If tube feedings continue recommend Nepro at 40 ml/hr with free water flush 30 ml q 4 hours. Following daily in ICU rounds. Will monitor every Monday and Monday.
[2021-10-25 12:19] LABS: Glucose Point of Care 153 mg/dl (65-105)
[2021-10-25] MEDS: ALBUMIN HUMAN 25% 25 GM/100 ML 100 ML IVPB (12:27)
[2021-10-25] MEDS: EPOETIN ALFA-EPBX 20,000 UNITS/ML VIAL 20000 UNITS IV PUSH (12:31)
[2021-10-25] MEDS: SODIUM CHLORIDE 0.9% IV 1,000 ML 999 ML IV CONT (12:31)
--- NOTE | 2021-10-25 13:44 | PM.PNGS ---
Progress Note: A&P Assessment and Plan (1) Acute cholecystitis: Code(s): K81.0 - Acute cholecystitis Status: Acute Assessment and Plan: Cholecystostomy tube draining well. Continue to monitor output. Bile culture showed growth of yeast. IV Micafungin added today. WBC trending down and fevers improving. (2) History of biliary duct stent placement: Code(s): Z98.890 - Other specified postprocedural states Status: Chronic Assessment and Plan: Dr. Pelayo following. (3) Acute respiratory failure: Code(s): J96.00 - Acute respiratory failure, unspecified whether with hypoxia or hypercapnia Status: Acute Assessment and Plan: Management per Wallpaper Printer Helper, remains intubated and is unresponsive off sedation. (4) ESRD (end stage renal disease) on dialysis: Code(s): N18.6 - End stage renal disease; Z99.2 - Dependence on renal dialysis Status: Acute Assessment and Plan: Receiving hemodialysis today. Nephrology following. (5) Septic shock: Code(s): A41.9 - Sepsis, unspecified organism; R65.21 - Severe sepsis with septic shock Status: Acute Assessment and Plan: Improving. Off vasopressors. Continue IV antibiotics and critical care management. (6) Encephalopathy: Code(s): G93.40 - Encephalopathy, unspecified Status: Acute Assessment and Plan: S/p cardiopulmonary arrest on transport to [place] ER. Head CT also showed small left parietal infarct. She is unresponsive on the ventilator without sedation. Second EEG scheduled for today, Neurology following. Plan I have discussed the patient's case and plan of care with Dr. Jolly. Subjective Subjective Date/Time Seen: 10/25/21 11:44 Interval history: This is a 71-year-old who called EMS with shortness of breath and went into cardiopulmonary arrest during transport to [facility]. She was treated in the ER, but is a hemodialysis patient and therefore was transferred to [place] for dialysis services and further treatment. She was in septic shock with severe pneumonia. She was treated, but continued to have fevers and was not improving. CTA of chest/abdomen/pelvis showed possible cholecystitis and she underwent percutaneous cholecystostomy tube placement on 10/23/2021. She remains intubated in the ICU. Chart reviewed. Patient is unresponsive without any sedation. She was undergoing her second EEG today. Per nursing, the school library media specialist had a conversation with the family regarding her current overall prognosis. She is also receiving hemodialysis today. No other acute changes. Review of Systems Review of Systems: ROS unobtainable: Yes unobtainable due to endotracheal tube Exam Const: General: ill appearing and patient obtunded Orientation/consciousness: Other orientation findings (unresponsive with no sedation) Resp: Effort & Inspection: abnormal respiratory pattern (on mechanical ventilator) GI: Inspection: non-distended and other (cholecystostomy tube with bilious output in bag) GI Palp: Yes Soft to palpation and Yes Other GI palpation findings present (exam limited d/t being unresponsive on vent) Auscultation: Hypoactive bowel sounds present Neuro: General: patient obtunded Objective Data Vital Signs Vital Signs: Vital Signs - 24 hr 10/24/21 14:00 10/24/21 14:00 10/24/21 16:00 Temperature 99.4 F Pulse Rate 109 H 109 H 101 H Respiratory Rate 18 Blood Pressure 103/63 Pulse Oximetry 99 Oxygen Delivery Fraction of Inspired Oxygen 10/24/21 16:35 10/24/21 16:00 10/24/21 16:00 Temperature 99.8 F H Pulse Rate 103 H 108 H Respiratory Rate 16 Blood Pressure 119/62 Pulse Oximetry 100 100 Oxygen Delivery Mechanical Ventilation Fraction of Inspired Oxygen 35 30 10/24/21 16:00 10/24/21 18:00 10/24/21 18:00 Temperature 99.6 F Pulse Rate 113 H 113 H Respiratory Rate 18 Blood Pressure 130/68 Pulse Oximetry 99 97 Oxyg
--- NOTE | 2021-10-25 14:41 | WPDGIPROGNO ---
Progress Note: A&P Assessment and Plan (1) Acute cholecystitis: Code(s): K81.0 - Acute cholecystitis Status: Acute Assessment and Plan: s/p percutaneous cholecystostomy tube, surgery is on the case she had biliary stent placement about 5 years ago but right now there is not suggestion of biliary obstruction since she has normal bilirubin (2) Anemia: Code(s): D64.9 - Anemia, unspecified Status: Acute Assessment and Plan: chronic anemia with fobt + but no obvious overt gib however with ongoing A fib, primary team asking to proceed with egd before she can be on anticoagulation egd today postponed because she is currently getting on dialysis, will do it tomorrow she has several other reasons to have anemia such as ESRD on dialysis, sepsis, etc (3) Septic shock: Code(s): A41.9 - Sepsis, unspecified organism; R65.21 - Severe sepsis with septic shock Status: Acute Assessment and Plan: resolved, off pressors on antibiotics (4) Pneumonia: Code(s): J18.9 - Pneumonia, unspecified organism Status: Acute Assessment and Plan: on abx (5) Encephalopathy: Code(s): G93.40 - Encephalopathy, unspecified Status: Acute (6) CVA (cerebral vascular accident): Code(s): I63.9 - Cerebral infarction, unspecified Status: Acute Assessment and Plan: CTA reviewed, old infarcts neurology on board (7) Atrial fibrillation: Code(s): I48.91 - Unspecified atrial fibrillation Status: Acute (8) History of biliary duct stent placement: Code(s): Z98.890 - Other specified postprocedural states Status: Chronic (9) Cardiac arrest: Code(s): I46.9 - Cardiac arrest, cause unspecified Status: Acute (10) ESRD (end stage renal disease) on dialysis: Code(s): N18.6 - End stage renal disease; Z99.2 - Dependence on renal dialysis Status: Acute Assessment and Plan: by nephrology Subjective Date/time seen: 10/25/21 14:41 Interval history: no changes, right now on dialysis Review of Systems Review of Systems: ROS unobtainable: Yes unobtainable due to endotracheal tube and unobtainable due to mental status Exam Narrative: General: Intubated and sedated HEENT: Pupils equal and reactive, sclera is clear, ETT in place Neck: Supple Respiratory: Coarse breath sounds bilaterally more at bases, decreased breath sounds at bases, adequate air entry, no wheezing Cardiac: Currently in sinus rhythm, rate controlled Abdomen: Soft, nontender, nondistended, hypoactive bowel sounds, obese, incisional hernia. Cholecystostomy tube in place with brown fluid Extremities: trace edema Neuro: Patient is sedated and intubated. Skin: Chronic venous stasis changes on the lower extremities Psych: Unable to assess Objective Data Vital Signs Vital Signs: Vital Signs - 24 hr 10/24/21 16:00 10/24/21 16:35 10/24/21 16:00 Temperature Pulse Rate 101 H 103 H Respiratory Rate Blood Pressure Pulse Oximetry 100 Oxygen Delivery Mechanical Ventilation Fraction of Inspired Oxygen 35 30 10/24/21 16:00 10/24/21 16:00 10/24/21 18:00 Temperature 99.8 F H Pulse Rate 108 H 113 H Respiratory Rate 16 Blood Pressure 119/62 Pulse Oximetry 100 99 Oxygen Delivery Mechanical Ventilation Fraction of Inspired Oxygen 30 10/24/21 18:00 10/24/21 20:24 10/24/21 20:27 Temperature 99.6 F Pulse Rate 113 H 127 H 112 H Respiratory Rate 18 16 Blood Pressure 130/68 Pulse Oximetry 97 96 Oxygen Delivery Mechanical Ventilation Fraction of Inspired Oxygen 35 10/24/21 20:50 10/24/21 20:50 10/24/21 20:00 Temperature Pulse Rate 110 H 122 H 115 H Respiratory Rate Blood Pressure Pulse Oximetry Oxygen Delivery Fraction of Inspired Oxygen 10/24/21 20:00 10/24/21 20:00 10/24/21 20:00 Temperature 99.5 F Pulse Rate 115 H 115 H Respiratory Rate 19 19 Blood Press
--- NOTE | 2021-10-25 15:19 | WPDINTPN ---
Progress Note: A&P Assessment and Plan (1) Encephalopathy: Code(s): G93.40 - Encephalopathy, unspecified Status: Acute Assessment and Plan: Encephalopathy could be multifactorial, cardiac arrest, anoxic injury, metabolic causes, infection -10/21 EEG showed diffuse slowing with triphasic waves may be seen in setting of metabolic encephalopathy, there were no epileptiform discharges. -neurology following the patient -sedation has been held to evaluate for mental status - 10/25 repeat EEG:Abnormal record due to absence of normal background rhythm and presence of bihemispheric slow activity admixed with a triphasic waves.? Previous tracing no significant changes noted.? These abnormalities are suggestive of underlying organic a metabolic encephalopathy again clinical correlation recommended -will discuss with Neurology -discussed with family regarding poor neurological outcome post cardiac arrest, family is going to decide and get back to us regarding further plan of care (2) Cardiac arrest: Code(s): I46.9 - Cardiac arrest, cause unspecified Status: Acute Assessment and Plan: 10/18; Cardiac arrest with CPR and 1 round of epi and vasopressin with ROSC -likely cause of cardiac arrest was respiratory failure, hypoxia -troponins have plateaued, no acute coronary syndrome as a cause of cardiac arrest per Cardiology -status post target temperature management post cardiac arrest -off all sedation, remains encephalopathic (3) Acute respiratory failure: Code(s): J96.00 - Acute respiratory failure, unspecified whether with hypoxia or hypercapnia Status: Acute Assessment and Plan: Acute respiratory failure likely related to pulmonary edema, pneumonia, congestive heart failure pulmonary hypertension -she presented the outside hospital with shortness of breath and hypoxia for few days, patient was being transferred to [facility] in an ambulance which she rested secondary to hypoxic respiratory failure -?patient intubated on 10/18/2021 -chest x-ray 10/25:??Improved diffuse lung disease, consistent with pulmonary edema versus pneumonia. Improved small right pleural effusion. Cardiomegaly. -ABGs reviewed, ventilator adjusted to increase PEEP to 10, currently on 40% FiO2 -sedated with propofol infusion for sedation, daily sedation vacation to assess mental status -discussed with pulmonology, no bronchoscopy, he will order a viral panel -continue?vancomycin 10/18, doxycycline 10/18,? imipenem 10/21 -also on?Levaquin (10/22)(will does according to dialysis) 10/23: Leukocytosis improving, fevers have resolved 10/21/2021 CTA chest PE protocol along with abdominal and pelvis 1. No pulmonary embolus identified, sensitivity limited by respiratory motion artifact. 2. Diffuse lung disease, consistent with pulmonary edema and/or pneumonia. 3. Gallbladder distention and chronic wall thickening of the gallbladder which could reflect acute versus chronic cholecystitis. 4. Indeterminate left kidney mass which may be benign or malignant, nonemergent follow-up is recommended. (4) Shock: Code(s): R57.9 - Shock, unspecified Status: Acute Assessment and Plan: Currently afebrile, off Levophed -maintain mean arterial pressures > 65 mm Hg adequate end organ perfusion -continue antibiotics as above -10/21/2021 blood culture negative x2 -10/23/2021 cultures from cholecystostomy drainage, is pending -10/24/2021 sputum cultures obtained and pending (5) Congestive heart failure: Qualifiers: Heart failure chronicity: acute on chronic Heart failure type: unspecified Qualified Code(s): I50.9 - Heart failure, unspecified Code(s): I50.9 - Heart failure, unspecified Status: Acute Assessment and Plan: 10/18/2021 Echocardiogram:? LV systolic function is 60-65%, LV diastolic function is abnormal, left atrial chamber severely enlarged, mild aortic valve sclerosis, mild? mitral valve regu
--- NOTE | 2021-10-25 15:25 | PC.NURSE ---
RN was called to bedside by family because of patient's right arm shaking; Recycling Specialist came to bedside and ordered 2mg IVP ativan x1 dose
[2021-10-25] MEDS: LORazepam INJ (*CRX) 2 MG/ML VIAL IV PUSH (15:37)
[2021-10-25] MEDS: MICAFUNGIN SODIUM 100 MG in SODIUM CHLORIDE 0.9% IV 100 ML IVPB (16:27)
[2021-10-25] MEDS: levETIRAcetam 1000MG/NACL100ML 1,000 MG/100 ML BAG 400 MG IVPB (16:28)
[2021-10-25 16:37] LABS: Glucose Point of Care 128 mg/dl (65-105)
[2021-10-25 17:40] LABS: Vancomycin Random 12.3 ug/mL (10-20)
[2021-10-25 20:29] LABS: Glucose Point of Care 194 mg/dl (65-105)
[2021-10-25] MEDS: MINERAL OIL/WHITE PETROLATUM OINTMENT 1 APPLIC EACH EYE (20:37)
[2021-10-25] MEDS: METOPROLOL TARTRATE 25 MG TABLET PO (20:37)
[2021-10-25 23:33] LABS: Glucose Point of Care 271 mg/dl (65-105)
[2021-10-26] VITALS (35 sets, daily range): BP systolic 92–138; BP diastolic 56–75; PULSE 98–129; RESP 14–27; TEMP 36.7–37.9; O2SAT 77–100
[2021-10-26] MEDS: ALBUTEROL SULFATE NEB 2.5 MG/3 ML INH INHALATION ×4 (02:34→19:46)
[2021-10-26] MEDS: IPRATROPIUM BR 0.02% INH SOLN 0.5 MG/2.5 ML VIAL INHALATION ×4 (02:34→19:46)
[2021-10-26 03:48] LABS: Glucose Point of Care 165 mg/dl (65-105)
[2021-10-26 04:39] LABS: Basophils Absolute Auto 0.1 K/mm3 (0.0-0.1); Basophils Percent Auto 0.4 % (0.2-1.2); Eosinophils Absolute Auto 0.2 K/mm3 (0-0.3); Eosinophils Percent Auto 1.2 % (0-4.4); Hematocrit 25.7 % (37.0-47.0); Immature Granulocyte Absolute 0.17 K/mm3 (0.00-0.031); Immature Granulocyte Percent A 1.4 % (0-0.5); Lymphocytes Percent Auto 11.6 % (18.3-44.2); Mean Corpuscular HGB Conc 31.1 g/dl (32-36); Mean Corpuscular Hemoglobin 32.7 pg (26-34); Mean Corpuscular Volume 104.9 fl (80-100); Mean Platelet Volume 9.4 fl (7.4-10.4); Monocytes Absolute Auto 1.2 K/mm3 (0.1-0.6); Monocytes Percent Auto 10.3 % (2.6-8.5); Neutrophils Percent Auto 75.1 % (45.5-73.1); Nucleated Red Blood Cells Absolute Auto 0.1 K/mm3 (0.0-0.012); Nucleated Red Blood Cells Perc 0.4 % (0.0-0.2); Platelet Count Result 298 k/mm3 (150-375); Red Blood Count 2.45 M/mm3 (4.2-5.4); Red Cell Distribution Width 15.6 % (11.5-14.5)
[2021-10-26 04:58] LABS: Alanine Aminotransferase 45 U/L (6-35); Alkaline Phosphatase 95 U/L (38-126); Anion Gap 13 mmol/L (8-16); Aspartate Amino Transferase 51 U/L (14-36); Bilirubin,Total 0.7 mg/dL (0.2-1.3); Blood Urea Nitrogen 44 mg/dL (7-17); Calcium 9.4 mg/dL (8.4-10.2); Carbon Dioxide 35 mmol/L (22-30); Chloride 88 mmol/L (98-107); Estimated CRCL calculation 16 ml/min; Estimated Glomerular Filt Rate 12; Glucose 167 mg/dL (65-110); Magnesium 2.1 mg/dL (1.6-2.3); Phosphorus 4.2 mg/dL (2.5-4.5); Potassium 3.4 mmol/L (3.4-5.0); Sodium 136 mmol/L (137-145)
[2021-10-26 05:55] LABS: Alveolar/Arterial O2 Gradient 61.3 mmHg; Carboxyhemoglobin 0.3 % THb (0-2.0); Fractional Inspired Oxygen 30 %; HCO3 ABG 29.7 mEq/l (22.0-26.0); Methemoglobin ABG 0.2 %THb (0-1.5); Oxygen Content ABG 13.1 %vol (16.0-22.0); Oxygen Saturation ABG 98.2 % (95.0-100.0); Oxyhemoglobin 96.7 % THb (90.0-100.0); PCO2 ABG 39.5 mmHg (35.0-45.0); PO2 ABG 106.2 mmHg (80.0-100.0); PO2 FiO2 Ratio Arterial Blood 3.54 %; Reduced Hemoglobin 2.8 %THb (0-5.0); Total Hemoglobin 9.5 g/dL (12.0-18.0); pH ABG 7.494 (7.350-7.450)
[2021-10-26 05:56] LABS: Arterial Blood Gas PEEP 10 cmH2O; Arterial Blood Gas Tidal Volume 450 ml; Arterial Blood Gas Vent Mode CMV; Arterial Blood Gas Ventilator rate 16 /MIN; Device VENTILATOR; Site Drawn RIGHT BRACHIAL
[2021-10-26] MEDS: METOCLOPRAMIDE HCL INJ 10 MG/2 ML VIAL IV PUSH ×2 (05:58→11:38)
[2021-10-26] MEDS: CENTRAL LINE FLUSH 10 ML IV PUSH ×4 (05:58→20:43)
--- NOTE | 2021-10-26 07:35 | PM.IMPN ---
Progress Note: A&P Assessment and Plan (1) Encephalopathy: Code(s): G93.40 - Encephalopathy, unspecified Status: Acute Assessment and Plan: Likely multifactorial, unknown etiology at this time, EEG was nonepileptic, appreciate Neurology consultation 10/23: Appears unchanged, continuing to attempt sedation 10/24: Unchanged, appreciate Neurology consultation 10/25: Off sedation now for a few days, no improvement, very poor prognosis 10/26: Unchanged (2) Cardiac arrest: Code(s): I46.9 - Cardiac arrest, cause unspecified Status: Acute Assessment and Plan: Cardiac arrest thought to be secondary to hypoxia and primary respiratory failure, status post CPR and 1 round of epi and vasopressin with ROSC (3) Acute respiratory failure: Code(s): J96.00 - Acute respiratory failure, unspecified whether with hypoxia or hypercapnia Status: Acute Assessment and Plan: Acute respiratory failure likely related to pulmonary edema, pneumonia, congestive heart failure pulmonary hypertension CTA done to rule out PE, negative, did show gallbladder wall thickening concerning for acute versus chronic cholecystitis, also noted left kidney mass, concerning for malignancy, would be metastatic due to primary pancreatic cancer noted 10/23: Continue vanc (started on 10/18), imipenem and Levaquin, day 6 of antibiotics 10/24: Continue antibiotics, day 7 10/25: Antibiotic day 8 10/26: Cholecystostomy and sputum cultures growing yeast, micafungin added, antibiotic day 9 (vancomycin, imipenem, Levaquin), micafungin day 2 (4) Shock: Code(s): R57.9 - Shock, unspecified Status: Acute Assessment and Plan: Primary source thought to be pneumonia, blood pressure is improving, stable off Levophed today 10/23: Cholecystitis could also be contributing source to sepsis, surgery consult pending Update: Spoke with general surgeon, Dr. Jolly, plan is for cholecystostomy tube today, will need to follow up regarding the placement of the biliary stent 5 years ago, records pending 10/24: Appears to be improving status post cholecystostomy tube 10/25: White count improved from yesterday 10/26: Off pressors, all cultures negative except for some yeast in the cholecystostomy drainage fluid and sputum (5) Congestive heart failure: Qualifiers: Heart failure chronicity: acute on chronic Heart failure type: unspecified Qualified Code(s): I50.9 - Heart failure, unspecified Code(s): I50.9 - Heart failure, unspecified Status: Acute Assessment and Plan: Diastolic heart failure noted with preserved EF, appreciate cardiology consultation Fluid status maintained by hemodialysis and Nephrology Continue metoprolol (6) COPD (chronic obstructive pulmonary disease): Code(s): J44.9 - Chronic obstructive pulmonary disease, unspecified Status: Acute Assessment and Plan: Continue bronchodilators, antibiotics and mechanical ventilation (7) Pneumonia: Code(s): J18.9 - Pneumonia, unspecified organism Status: Acute Assessment and Plan: Suspect any pneumonia has now resolved, chest x-rays improving each day Sputum culture showed yeast, day 8 of antibiotics for empiric coverage (8) Pulmonary hypertension: Code(s): I27.20 - Pulmonary hypertension, unspecified Status: Acute Assessment and Plan: Echocardiogram showed severe pulmonary hypertension (9) HTN (hypertension): Code(s): I10 - Essential (primary) hypertension Status: Acute Assessment and Plan: Restart antihypertensives when appropriate, off Levophed, monitor (10) CVA (cerebral vascular accident): Code(s): I63.9 - Cerebral infarction, unspecified Status: Acute Assessment and Plan: Appreciate neurology consultation (11) Atrial fibrillation: Code(s): I48.91 - Unspecified atrial fibrillation Status: Acute Asse
--- NOTE | 2021-10-26 07:41 | PM.PNCARD ---
Progress Note: A&P Assessment and Plan (1) Shock: Code(s): R57.9 - Shock, unspecified Status: Acute Assessment and Plan: Resolved off Levophed drip. Likely due to respiratory failure from pneumonia. Was on Levophed but no longer requiring it. 10/18/21 Echo: EF 60-65%, mild LVH, diastolic dysfunction with E/e' 33, severe LAE, mod MAC and mitral valve calcifications, mild MR, trace TR/PI, severe pulm hypertension with RVSP 61 mmHg. (2) Acute respiratory failure: Code(s): J96.00 - Acute respiratory failure, unspecified whether with hypoxia or hypercapnia Status: Acute Assessment and Plan: Ventilator managed by fixture fabricator repairer. (3) Pneumonia: Code(s): J18.9 - Pneumonia, unspecified organism Status: Acute Assessment and Plan: On antibiotics per hospitalist. (4) HTN (hypertension): Code(s): I10 - Essential (primary) hypertension Status: Acute Assessment and Plan: Stable but off her home BP medications. Resume when BP starts to go up starting with Carvedilol or Metoprolol, Olmesartan then Amlodipine in that order. (5) HLD (hyperlipidemia): Code(s): E78.5 - Hyperlipidemia, unspecified Status: Acute Assessment and Plan: On Atorvastatin. (6) Diastolic dysfunction: Code(s): I51.89 - Other ill-defined heart diseases Status: Acute Assessment and Plan: Fluid level controlled with HD. (7) ESRD (end stage renal disease) on dialysis: Code(s): N18.6 - End stage renal disease; Z99.2 - Dependence on renal dialysis Status: Acute Assessment and Plan: Fluid level controlled with HD. (8) Atrial fibrillation: Code(s): I48.91 - Unspecified atrial fibrillation Status: Acute Assessment and Plan: Back in atrial fibrillation. New onset on 10/19/21, then had atrial tachycardia/flutter on 10/20/21. Probably due to respiratory status. [id number] 5. If no contraindication will start her on anticoagulation with Eliquis 5 mg BID (for weight >60kg and age<80). Decreased aspirin 81 mg daily. Resumed Amiodarone drip and restored sinus rhythm. On Amiodarone 200 mg PO every 12 hours. If continues to be in atrial fib, consider Amiodarone drip to restore sinus rhythm. Eliquis on hold due to positive hemoccult and worsening anemia. Discuss with Dr. Puente, holding off on heparin drip due to significant anemia and positive hemccolt. Plan on endoscopy today. Increase Metoprolol Tartate 25 mg PO every 6 hours with parameters for rate control. Subjective Date/time seen: 10/26/21 07:41 Off sedation. On ventilator. Exam Const: Other: Sedated on ventilator Resp: Auscultation: no crackles, no rales, no rhonchi, no wheezes and diminished lung sounds Cardio: Jugular venous distension: no JVD Rate: tachycardic Rhythm: abnormal rhythm Heart sounds: no murmurs Peripheral pulses: dorsalis pedis present GI: GI Palp: No abdominal tenderness and Yes Soft to palpation Extrem: Right lower extremity: no edema Left lower extremity: no edema Objective Data Vital Signs Vital Signs: Vital Signs - 24 hr 10/25/21 08:19 10/25/21 08:23 10/25/21 08:27 Temperature Pulse Rate 118 H 115 H 110 H Respiratory Rate 18 24 H Blood Pressure Pulse Oximetry Oxygen Delivery Fraction of Inspired Oxygen 10/25/21 08:28 10/25/21 08:00 10/25/21 08:00 Temperature 98.3 F Pulse Rate 114 H 113 H Respiratory Rate 19 Blood Pressure 139/73 Pulse Oximetry 95 Oxygen Delivery Mechanical Ventilation Fraction of Inspired Oxygen 30 10/25/21 08:00 10/25/21 08:00 10/25/21 10:00 Temperature Pulse Rate 108 H Respiratory Rate Blood Pressure Pulse Oximetry 96 Oxygen Delivery Mechanical Ventilation Fraction of Inspired Oxygen 30 30 10/25/21 10:00 10/25/21 11:58 10/25/21 11:45 Temperature 98.4 F Pulse Rate 108 H 114 H Respiratory Rate 20 Blood Pressure 134/64 131/71 Pulse Oximet
--- NOTE | 2021-10-26 07:43 | PM.PNNEP ---
Progress Note: A&P Assessment and Plan (1) Shock: Code(s): R57.9 - Shock, unspecified Status: Acute Assessment and Plan: off levophed < 24 hrs of admit 10/18/21 Echo: EF 60-65%, mild LVH, diastolic dysfunction with E/e' 33, severe LAE, mod MAC and mitral valve calcifications, mild MR, trace TR/PI, severe pulm hypertension with RVSP 61 mmHg. (2) Acute respiratory failure: Code(s): J96.00 - Acute respiratory failure, unspecified whether with hypoxia or hypercapnia Status: Acute Assessment and Plan: fio2 is down 30% but peep 10 with ppk 38 (3) Pneumonia: Code(s): J18.9 - Pneumonia, unspecified organism Status: Acute Assessment and Plan: abx.- LEVAQUIN, PRIMAXIN, VANCOMYCIN (4) HTN (hypertension): Code(s): I10 - Essential (primary) hypertension Status: Acute Assessment and Plan: Stable but off her home BP medications. Resume when BP starts to go up starting with Carvedilol or Metoprolol, Olmesartan then Amlodipine in that order- PER IM AND ICU TEAM PLAN (5) HLD (hyperlipidemia): Code(s): E78.5 - Hyperlipidemia, unspecified Status: Acute Assessment and Plan: On Atorvastatin. (6) Diastolic dysfunction: Code(s): I51.89 - Other ill-defined heart diseases Status: Acute Assessment and Plan: Fluid level controlled with HD. (7) ESRD (end stage renal disease) on dialysis: Code(s): N18.6 - End stage renal disease; Z99.2 - Dependence on renal dialysis Status: Acute Assessment and Plan: Fluid level controlled with HD.- HD MWF PLUS XTRA PRN (8) Atrial fibrillation: Code(s): I48.91 - Unspecified atrial fibrillation Status: Acute Assessment and Plan: PER IM/ ICU TEAM PLAN: Back in atrial fibrillation. New onset on 10/19/21, then had atrial tachycardia/flutter on 10/20/21. Probably due to respiratory status. [id number] 5. If no contraindication will start her on anticoagulation with Eliquis 5 mg BID (for weight >60kg and age<80). Decreased aspirin 81 mg daily. Resumed Amiodarone drip and restored sinus rhythm. On Amiodarone 200 mg PO every 12 hours. If continues to be in atrial fib, consider Amiodarone drip to restore sinus rhythm. Eliquis on hold due to positive hemoccult and worsening anemia. Discuss with Dr. Puente, holding off on heparin drip due to significant anemia and positive hemccolt. Plan on endoscopy today. Increase Metoprolol Tartate 25 mg PO every 6 hours with parameters for rate control. Plan 1. HD TOMORROW. 2. CONSIDER NEURO CONSULT IF NOT DONE ALREADY TO ASSESS FOR POSS ANOXIC INJURY 3. CONT VENT SUPPORT, NUTRITION, MEDS. Subjective Date/time seen: 10/26/21 07:43 remains intubated. no sedatives. No awakening dena normal pattern. does open eyes to voice and touch of feet Exam Resp: Other: no rales or rhonchi Cardio: Other: tachy and irreg- monitor afib- 120's GI: Other: nabs, nttp- currently tf's are off Skin: Other: no c/c/e, dp difficult to palpate Objective Data Vital Signs Vital Signs: Vital Signs - 24 hr 10/25/21 08:19 10/25/21 08:23 10/25/21 08:27 Temperature Pulse Rate 118 H 115 H 110 H Respiratory Rate 18 24 H Blood Pressure Pulse Oximetry Oxygen Delivery Fraction of Inspired Oxygen 10/25/21 08:28 10/25/21 08:00 10/25/21 08:00 Temperature 36.8 C Pulse Rate 114 H 113 H Respiratory Rate 19 Blood Pressure 139/73 Pulse Oximetry 95 Oxygen Delivery Mechanical Ventilation Fraction of Inspired Oxygen 30 10/25/21 08:00 10/25/21 08:00 10/25/21 10:00 Temperature Pulse Rate 108 H Respiratory Rate Blood Pressure Pulse Oximetry 96 Oxygen Delivery Mechanical Ventilation Fraction of Inspired Oxygen 30 30 10/25/21 10:00 10/25/21 11:58 10/25/21 11:45 Temperature 36.9 C Pulse Rate 108 H 114 H Respiratory Rate 20 Blood Pressure 134/64 131/71 Pulse Oximetry 96 Oxygen De
[2021-10-26] MEDS: ASPIRIN 81 MG ENTERIC TABLET PO (09:43)
[2021-10-26] MEDS: MINERAL OIL/WHITE PETROLATUM OINTMENT 1 APPLIC EACH EYE ×2 (09:43→20:43)
[2021-10-26] MEDS: ATORVASTATIN 20 MG TABLET PO (09:43)
[2021-10-26] MEDS: AMIODARONE HCL 200 MG TABLET PO ×2 (09:43→20:43)
[2021-10-26] MEDS: PANTOPRAZOLE SODIUM IV 40 MG VIAL IV PUSH ×2 (09:44→20:43)
[2021-10-26] MEDS: MICAFUNGIN SODIUM 100 MG in SODIUM CHLORIDE 0.9% IV 100 ML IVPB (09:48)
[2021-10-26] MEDS: POTASSIUM CHLORIDE 20 MEQ PACKET (FOR LIQUID) 40 MEQ FEED TUBE (09:55)
[2021-10-26] MEDS: INSULIN GLARGINE (*BKC) 100 UNITS/ML 30 UNITS SUB-Q (09:55)
[2021-10-26] MEDS: levETIRAcetam 500MG/NACL 100ML 500 MG/100 ML BAG 400 MG IVPB (09:55)
[2021-10-26 09:58] LABS: Glucose Point of Care 198 mg/dl (65-105)
--- NOTE | 2021-10-26 10:39 | SUR.OPER ---
Informed that pt received medications via NG tube at [address] Pelayo notified states ok to proceed with EGD as scheduled.
[2021-10-26] MEDS: PROPOFOL IV EMULSION 100 ML 15.26 MG IV CONT (11:08)
[2021-10-26 11:41] LABS: Glucose Point of Care 206 mg/dl (65-105)
--- NOTE | 2021-10-26 11:47 | PCNFU ---
Nutrition Follow-Up Complete: Inadequate Oral Intake as related to mechanical ventilation as evidenced by Tube feedings. Goal: Meet estimated nutritional needs Patient is slowing progressing towards goal. We will continue current goal. Pt current nutrition is NPO. Nutrition recommendation:Nepro at 40 ml/hr. Last recorded weight is 101.7 kg, down from 110 kg on admit. Bowel Motility:+BM reported 10/25 Labs Reviewed:Glu 167, GFR 12, Cr 3.6, BUN 44, Na 136, Hct 25.7,Hgb 8.0 Meds Noted:Eliquis,Zosyn, Lantus, NovoLog, Protonix, Atrovent, Lipitor Skin: WNL Additional Notes: Patient remains on mechanical vent. EGD ordered. Plans for Dialysis today. Tube feedings are currently on hold. Tube feeding recommendations: Nepro at 40 ml/hr over 22 hours, providing 1584 kcals/71 gms protein/640 ml water. Free water flush 30 ml q 4 hours. Agree with diet orders. Will monitor daily in ICU rounds and reassessing every Monday and Monday.
[2021-10-26] MEDS: INSULIN ASPART (*BKC) 100 UNITS/ML SUB-Q (11:49)
[2021-10-26] MEDS: levoFLOXacin 500 MG/D5W 100 ML 500 MG/100 ML BAG 100 MG IVPB (13:33)
--- NOTE | 2021-10-26 15:16 | WPDINTPN ---
Progress Note: A&P Assessment and Plan (1) Encephalopathy: Code(s): G93.40 - Encephalopathy, unspecified Status: Acute Assessment and Plan: Encephalopathy could be multifactorial, cardiac arrest, anoxic injury, metabolic causes, CVA -10/21 EEG showed diffuse slowing with triphasic waves may be seen in setting of metabolic encephalopathy, there were no epileptiform discharges. -neurology following the patient -sedation has been held to evaluate for mental status - 10/25 repeat EEG:Abnormal record due to absence of normal background rhythm and presence of bihemispheric slow activity admixed with a triphasic waves.? Previous tracing no significant changes noted.? These abnormalities are suggestive of underlying organic a metabolic encephalopathy again clinical correlation recommended -continue Keppra -continue to hold sedation -unable to obtain MRI on a vented patient and [facility] -discussed with family regarding poor neurological outcome post cardiac arrest, family is going to decide and get back to us regarding further plan of care (2) Cardiac arrest: Code(s): I46.9 - Cardiac arrest, cause unspecified Status: Acute Assessment and Plan: 10/18; Cardiac arrest with CPR and 1 round of epi and vasopressin with ROSC -likely cause of cardiac arrest was respiratory failure, hypoxia -troponins have plateaued, no acute coronary syndrome as a cause of cardiac arrest per Cardiology -status post target temperature management post cardiac arrest -off all sedation, remains encephalopathic (3) Acute respiratory failure: Code(s): J96.00 - Acute respiratory failure, unspecified whether with hypoxia or hypercapnia Status: Acute Assessment and Plan: Acute respiratory failure likely related to pulmonary edema, pneumonia, congestive heart failure pulmonary hypertension -she presented the outside hospital with shortness of breath and hypoxia for few days, patient was being transferred to [facility] in an ambulance which she rested secondary to hypoxic respiratory failure -?patient intubated on 10/18/2021 -chest x-ray reviewed -ABGs reviewed-decrease PEEP to 8, currently on 40% FiO2 -discussed with pulmonology, no bronchoscopy, he will order a viral panel -continue?vancomycin 10/18, imipenem 10/21 -also on?Levaquin (10/22)(will does according to dialysis) -micafungin was added 10/25 her cholecystostomy grew yeast 10/23: Leukocytosis improved, fevers have decreased 10/21/2021 CTA chest PE protocol along with abdominal and pelvis 1. No pulmonary embolus identified, sensitivity limited by respiratory motion artifact. 2. Diffuse lung disease, consistent with pulmonary edema and/or pneumonia. 3. Gallbladder distention and chronic wall thickening of the gallbladder which could reflect acute versus chronic cholecystitis. 4. Indeterminate left kidney mass which may be benign or malignant, nonemergent follow-up is recommended. (4) Shock: Code(s): R57.9 - Shock, unspecified Status: Acute Assessment and Plan: Currently afebrile, off Levophed -maintain mean arterial pressures > 65 mm Hg adequate end organ perfusion -continue antibiotics as above -10/21/2021 blood culture negative x2 -10/23/2021 cultures from cholecystostomy drainage, is pending -10/24/2021 sputum cultures obtained and pending (5) Congestive heart failure: Qualifiers: Heart failure chronicity: acute on chronic Heart failure type: unspecified Qualified Code(s): I50.9 - Heart failure, unspecified Code(s): I50.9 - Heart failure, unspecified Status: Acute Assessment and Plan: 10/18/2021 Echocardiogram:? LV systolic function is 60-65%, LV diastolic function is abnormal, left atrial chamber severely enlarged, mild aortic valve sclerosis, mild? mitral valve regurg, severe pulmonary hypertension with RVSP of 61 mmHg -cardiology following the patient -hold all antihypertensives as patient is on/o
[2021-10-26 15:39] LABS: Glucose Point of Care 112 mg/dl (65-105)
--- NOTE | 2021-10-26 16:05 | PM.PNGS ---
Progress Note: A&P Assessment and Plan (1) Acute cholecystitis: Code(s): K81.0 - Acute cholecystitis Status: Acute Assessment and Plan: Cholecystostomy tube draining well. Continue to monitor output. Bile culture showed growth of yeast. Continue IV micafungin and IV antibiotics. WBC slowly trending down. (2) History of biliary duct stent placement: Code(s): Z98.890 - Other specified postprocedural states Status: Chronic Assessment and Plan: Apparently patient has biliary stent was placed about 5 years ago. She underwent an EGD today and had a plastic biliary stent removed. There was noted to be a large amount of sludge causing an occlusion of the stent. No other findings during endoscopy. One question would be could she have ascending cholangitis causing her sepsis due to an occluded stent that was not allowing adequate passage of bile through the common bile duct. Continue current medical management. (3) Acute respiratory failure: Code(s): J96.00 - Acute respiratory failure, unspecified whether with hypoxia or hypercapnia Status: Acute Assessment and Plan: Management per Environmental Protection [employer], remains intubated and is unresponsive off sedation. (4) ESRD (end stage renal disease) on dialysis: Code(s): N18.6 - End stage renal disease; Z99.2 - Dependence on renal dialysis Status: Acute Assessment and Plan: Nephrology following and managing hemodialysis. (5) Septic shock: Code(s): A41.9 - Sepsis, unspecified organism; R65.21 - Severe sepsis with septic shock Status: Acute Assessment and Plan: Improving. Off vasopressors. Continue IV antibiotics and critical care management. (6) Encephalopathy: Code(s): G93.40 - Encephalopathy, unspecified Status: Acute Assessment and Plan: S/p cardiopulmonary arrest on transport to [place] [facility]. Head CT also showed small left parietal infarct. She is unresponsive on the ventilator without sedation. Second EEG yesterday c/w encephalopathy, Neurology following. Plan I have discussed the patient's case and plan of care with Dr. Rodriguez. Subjective Subjective Date/Time Seen: 10/26/21 11:05 Interval history: Patient intubated and off sedation, but remains unresponsive. No acute events overnight per nursing. Review of Systems Review of Systems: ROS unobtainable: Yes unobtainable due to endotracheal tube Exam Const: General: ill appearing and patient obtunded Orientation/consciousness: Other orientation findings (unresponsive with no sedation) GI: Inspection: non-distended and other (cholecystostomy tube with bilious output in bag) GI Palp: Yes Soft to palpation and No Tenderness to palpation present (GI) (no grimacing, but patient unresponsive) Auscultation: Hypoactive bowel sounds present Neuro: General: patient obtunded Psych: Mental Status: other ( sedated on mechanical ventilator) Objective Data Vital Signs Vital Signs: Vital Signs - 24 hr 10/25/21 16:15 10/25/21 17:49 10/25/21 18:00 Temperature 98.7 F Pulse Rate 115 H 107 H 114 H Respiratory Rate 18 Blood Pressure 108/57 L Pulse Oximetry 99 99 Oxygen Delivery Mechanical Ventilation Fraction of Inspired Oxygen 30 10/25/21 18:00 10/25/21 20:23 10/25/21 19:55 Temperature 99.9 F H Pulse Rate 114 H 127 H 127 H Respiratory Rate 20 24 H Blood Pressure 106/64 Pulse Oximetry 97 98 Oxygen Delivery Mechanical Ventilation Fraction of Inspired Oxygen 30 10/25/21 20:37 10/25/21 20:37 10/25/21 23:38 Temperature Pulse Rate 114 H 114 H 96 Respiratory Rate Blood Pressure Pulse Oximetry 100 Oxygen Delivery Mechanical Ventilation Fraction of Inspired Oxygen 30 10/25/21 20:00 10/25/21 20:00 10/25/21 20:00 Temperature Pulse Rate 118 H 118 H Respiratory Rate 26 H Blood Pressure Pulse Oximetry 96 Oxygen Delivery Mechanical Ventilation Fraction of Inspired O
[2021-10-26] MEDS: LORazepam INJ (*CRX) 2 MG/ML VIAL IV PUSH (17:33)
[2021-10-26] MEDS: EPOETIN ALFA-EPBX 20,000 UNITS/ML VIAL 20000 UNITS SUB-Q (17:45)
[2021-10-26] MEDS: METOPROLOL TARTRATE 25 MG TABLET PO (17:46)
[2021-10-26 18:24] LABS: Fractional Inspired Oxygen 100 %
[2021-10-26 18:38] LABS: Oxygen Saturation ABG 99.9 % (95.0-100.0); Oxyhemoglobin 98.4 % THb (90.0-100.0); PO2 ABG 508.7 mmHg (80.0-100.0)
[2021-10-26 18:44] LABS: Device VENTILATOR; Modified Allen's Test Pass; Site Drawn RIGHT RADIAL
[2021-10-26 18:53] LABS: pH ABG 7.508 (7.350-7.450)
[2021-10-26 18:54] LABS: Base Excess ABG 6.8 mEq/l (+/-2.0); HCO3 ABG 30.3 mEq/l (22.0-26.0)
[2021-10-26 18:56] LABS: PO2 FiO2 Ratio Arterial Blood 5.09 %
[2021-10-26 18:57] LABS: Alveolar/Arterial O2 Gradient 165.3 mmHg; Arterial Blood Gas PEEP 8 cmH2O; Arterial Blood Gas Tidal Volume 450 ml; Arterial Blood Gas Vent Mode CMV; Arterial Blood Gas Ventilator rate 16 /MIN; Oxygen Content ABG 15.3 %vol (16.0-22.0)
[2021-10-26 20:59] LABS: Glucose Point of Care 113 mg/dl (65-105)
[2021-10-27] VITALS (56 sets, daily range): BP systolic 90–136; BP diastolic 55–97; PULSE 100–148; RESP 15–23; TEMP 35.5–38.1; O2SAT 89–100
[2021-10-27] MEDS: METOPROLOL TARTRATE 25 MG TABLET PO ×5 (00:04→23:58)
[2021-10-27 00:06] LABS: Glucose Point of Care 109 mg/dl (65-105)
[2021-10-27] MEDS: ALBUTEROL SULFATE NEB 2.5 MG/3 ML INH INHALATION ×4 (01:30→20:17)
[2021-10-27] MEDS: IPRATROPIUM BR 0.02% INH SOLN 0.5 MG/2.5 ML VIAL INHALATION ×4 (01:30→20:17)
[2021-10-27 03:45] LABS: Glucose Point of Care 130 mg/dl (65-105)
[2021-10-27 04:26] LABS: Alveolar/Arterial O2 Gradient 74.2 mmHg; Base Excess ABG 6.4 mEq/l (+/-2.0); Carboxyhemoglobin 0.2 % THb (0-2.0); Fractional Inspired Oxygen 30 %; HCO3 ABG 30.5 mEq/l (22.0-26.0); Methemoglobin ABG 0.3 %THb (0-1.5); Oxygen Content ABG 11.7 %vol (16.0-22.0); Oxygen Saturation ABG 97.4 % (95.0-100.0); Oxyhemoglobin 95.6 % THb (90.0-100.0); PCO2 ABG 41.9 mmHg (35.0-45.0); PO2 ABG 90.5 mmHg (80.0-100.0); PO2 FiO2 Ratio Arterial Blood 3.02 %; Reduced Hemoglobin 3.9 %THb (0-5.0); Total Hemoglobin 8.6 g/dL (12.0-18.0)
[2021-10-27 04:27] LABS: Device VENTILATOR; Modified Allen's Test Pass; Site Drawn RIGHT BRACHIAL
[2021-10-27 04:28] LABS: Arterial Blood Gas PEEP 8 cmH2O; Arterial Blood Gas Tidal Volume 400 ml; Arterial Blood Gas Vent Mode CMV; Arterial Blood Gas Ventilator rate 16 /MIN
[2021-10-27] MEDS: CENTRAL LINE FLUSH 10 ML IV PUSH ×4 (05:17→21:42)
[2021-10-27 05:28] LABS: Basophils Absolute Auto 0.1 K/mm3 (0.0-0.1); Basophils Percent Auto 0.4 % (0.2-1.2); Eosinophils Absolute Auto 0.1 K/mm3 (0-0.3); Eosinophils Percent Auto 0.8 % (0-4.4); Hematocrit 26.2 % (37.0-47.0); Immature Granulocyte Absolute 0.13 K/mm3 (0.00-0.031); Immature Granulocyte Percent A 0.9 % (0-0.5); Lymphocytes Absolute Auto 1.57 K/mm3 (0.9-3.2); Lymphocytes Percent Auto 10.6 % (18.3-44.2); Mean Corpuscular HGB Conc 30.5 g/dl (32-36); Mean Corpuscular Volume 104.8 fl (80-100); Mean Platelet Volume 9.6 fl (7.4-10.4); Monocytes Absolute Auto 1.5 K/mm3 (0.1-0.6); Monocytes Percent Auto 10.3 % (2.6-8.5); Neutrophils Absolute Auto 11.4 K/mm3 (1.3-6.7); Nucleated Red Blood Cells Perc 0.3 % (0.0-0.2); Platelet Count Result 311 k/mm3 (150-375); Red Cell Distribution Width 15.4 % (11.5-14.5); White Blood Count 14.8 K/mm3 (4.5-10.0)
[2021-10-27 05:51] LABS: Alanine Aminotransferase 45 U/L (6-35); Albumin Level 3.7 g/dL (3.5-5.1); Alkaline Phosphatase 91 U/L (38-126); Anion Gap 14 mmol/L (8-16); Aspartate Amino Transferase 60 U/L (14-36); Bilirubin,Total 0.7 mg/dL (0.2-1.3); Blood Urea Nitrogen 68 mg/dL (7-17); Calcium 9.6 mg/dL (8.4-10.2); Carbon Dioxide 31 mmol/L (22-30); Chloride 90 mmol/L (98-107); Estimated CRCL calculation 11 ml/min; Estimated Glomerular Filt Rate 8; Glucose 130 mg/dL (65-110); Magnesium 2.3 mg/dL (1.6-2.3); Phosphorus 6.6 mg/dL (2.5-4.5); Potassium 4.2 mmol/L (3.4-5.0); Sodium 135 mmol/L (137-145)
[2021-10-27] MEDS: LORazepam INJ (*CRX) 2 MG/ML VIAL IV PUSH ×2 (07:20→16:11)
[2021-10-27] MEDS: METOPROLOL TARTRATE INJ 5 MG/5 ML VIAL 2.5 MG IV PUSH (07:20)
[2021-10-27 07:31] LABS: Glucose Point of Care 133 mg/dl (65-105)
--- NOTE | 2021-10-27 07:45 | PM.PNCARD ---
Progress Note: A&P Assessment and Plan (1) Shock: Code(s): R57.9 - Shock, unspecified Status: Acute Assessment and Plan: Resolved off Levophed drip. Likely due to respiratory failure from pneumonia. Was on Levophed but no longer requiring it. 10/18/21 Echo: EF 60-65%, mild LVH, diastolic dysfunction with E/e' 33, severe LAE, mod MAC and mitral valve calcifications, mild MR, trace TR/PI, severe pulm hypertension with RVSP 61 mmHg. (2) Acute respiratory failure: Code(s): J96.00 - Acute respiratory failure, unspecified whether with hypoxia or hypercapnia Status: Acute Assessment and Plan: Ventilator managed by stereo map plotter operator. (3) Pneumonia: Code(s): J18.9 - Pneumonia, unspecified organism Status: Acute Assessment and Plan: On antibiotics per hospitalist. (4) HTN (hypertension): Code(s): I10 - Essential (primary) hypertension Status: Acute Assessment and Plan: Stable but off her home BP medications. Resume when BP starts to go up starting with Carvedilol or Metoprolol, Olmesartan then Amlodipine in that order. (5) HLD (hyperlipidemia): Code(s): E78.5 - Hyperlipidemia, unspecified Status: Acute Assessment and Plan: On Atorvastatin. (6) Diastolic dysfunction: Code(s): I51.89 - Other ill-defined heart diseases Status: Acute Assessment and Plan: Fluid level controlled with HD. (7) ESRD (end stage renal disease) on dialysis: Code(s): N18.6 - End stage renal disease; Z99.2 - Dependence on renal dialysis Status: Acute Assessment and Plan: Fluid level controlled with HD. (8) Atrial fibrillation: Code(s): I48.91 - Unspecified atrial fibrillation Status: Acute Assessment and Plan: Back in atrial fibrillation. New onset on 10/19/21, then had atrial tachycardia/flutter on 10/20/21. Probably due to respiratory status. [id number] 5. If no contraindication will start her on anticoagulation with Eliquis 5 mg BID (for weight >60kg and age<80). Decreased aspirin 81 mg daily. Resumed Amiodarone drip and restored sinus rhythm. On Amiodarone 200 mg PO every 12 hours. If continues to be in atrial fib, consider Amiodarone drip to restore sinus rhythm. Eliquis on hold due to positive hemoccult and worsening anemia. Discuss with Dr. Puente, holding off on heparin drip due to significant anemia and positive hemccolt. Plan on endoscopy today. Increased Metoprolol Tartate 25 mg PO every 6 hours with parameters for rate control. Increase Amiodarone 400 mg every 12 hours to attempt to restore sinus rhythm. Start Eliquis 5 mg PO BID as cleared by GI. Subjective Date/time seen: 10/27/21 07:45 Not waking up, on ventilator. Exam Const: Other: Sedated on ventilator Resp: Auscultation: no crackles, no rales, no rhonchi, no wheezes and diminished lung sounds Cardio: Jugular venous distension: no JVD Rate: tachycardic Rhythm: abnormal rhythm Heart sounds: no murmurs Peripheral pulses: dorsalis pedis present GI: GI Palp: No abdominal tenderness and Yes Soft to palpation Extrem: Right lower extremity: no edema Left lower extremity: no edema Objective Data Vital Signs Vital Signs: Vital Signs - 24 hr 10/26/21 08:10 10/26/21 08:24 10/26/21 08:26 Temperature Pulse Rate 119 H 125 H 118 H Respiratory Rate 19 23 H Blood Pressure Pulse Oximetry 98 Oxygen Delivery Mechanical Ventilation Fraction of Inspired Oxygen 30 10/26/21 09:43 10/26/21 08:00 10/26/21 08:00 Temperature Pulse Rate 114 H 115 H Respiratory Rate 16 Blood Pressure 116/59 L Pulse Oximetry 96 Oxygen Delivery Fraction of Inspired Oxygen 30 10/26/21 08:00 10/26/21 10:00 10/26/21 11:04 Temperature 98.4 F Pulse Rate 100 113 H 118 H Respiratory Rate 16 14 16 Blood Pressure 110/63 110/63 Pulse Oximetry 97 96 97 Oxygen Delivery Mechanical Ventilation Mechanical Ventilation Fraction of Ins
--- NOTE | 2021-10-27 07:49 | ECG_ITS ---
Measurements Intervals [place] Rate: 121 P: CA: 0 QRS: -33 QRSD: 150 T: 97 QT: 359 QTc: 511 Interpretive Statements ATRIAL FIBRILLATION WITH RAPID VENTRICULAR RESPONSE LEFT AXIS DEVIATION LEFT BUNDLE BRANCH BLOCK ABNORMAL ECG COMPARED TO ECG 10/25/2021 09:48:44 NO SIGNIFICANT CHANGES Electronically Signed On 10-27-2021 16:07:39 CDT by Kurtis Rogers M.D.
[2021-10-27 08:05] LABS: Device VENTILATOR
[2021-10-27 08:06] LABS: Arterial Blood Gas PEEP 10 cmH2O; Arterial Blood Gas Tidal Volume 450 ml; Arterial Blood Gas Vent Mode CMV; Arterial Blood Gas Ventilator rate 16 /MIN
--- NOTE | 2021-10-27 08:52 | WPDINTPN ---
Progress Note: A&P Assessment and Plan (1) Encephalopathy: Code(s): G93.40 - Encephalopathy, unspecified Status: Acute Assessment and Plan: Encephalopathy could be multifactorial, cardiac arrest, anoxic injury, metabolic causes, CVA -10/21 EEG showed diffuse slowing with triphasic waves may be seen in setting of metabolic encephalopathy, there were no epileptiform discharges. -neurology following the patient - 10/25 repeat EEG:Abnormal record due to absence of normal background rhythm and presence of bihemispheric slow activity admixed with a triphasic waves.? Previous tracing no significant changes noted.? These abnormalities are suggestive of underlying organic a metabolic encephalopathy again clinical correlation recommended No significant change in patient neurological status over last few days -continue Keppra -continue to hold sedation -unable to obtain MRI on a vented patient and [facility] -continue hemodialysis (2) Cardiac arrest: Code(s): I46.9 - Cardiac arrest, cause unspecified Status: Acute Assessment and Plan: 10/18; Cardiac arrest with CPR and 1 round of epi and vasopressin with ROSC -likely cause of cardiac arrest was respiratory failure, hypoxia -troponins have plateaued, no acute coronary syndrome as a cause of cardiac arrest per Cardiology -status post target temperature management post cardiac arrest -off all sedation, remains encephalopathic (3) Acute respiratory failure: Code(s): J96.00 - Acute respiratory failure, unspecified whether with hypoxia or hypercapnia Status: Acute Assessment and Plan: Acute respiratory failure likely related to pulmonary edema, pneumonia, congestive heart failure pulmonary hypertension -she presented the outside hospital with shortness of breath and hypoxia for few days, patient was being transferred to [facility] in an ambulance which she rested secondary to hypoxic respiratory failure -?patient intubated on 10/18/2021 -chest x-ray reviewed -ABGs reviewed-decrease tidal volume to 360, continue PEEP to 8, currently on 40% FiO2 Weaning will depend on neurological recovery 10/21/2021 CTA chest PE protocol along with abdominal and pelvis 1. No pulmonary embolus identified, sensitivity limited by respiratory motion artifact. 2. Diffuse lung disease, consistent with pulmonary edema and/or pneumonia. 3. Gallbladder distention and chronic wall thickening of the gallbladder which could reflect acute versus chronic cholecystitis. 4. Indeterminate left kidney mass which may be benign or malignant, nonemergent follow-up is recommended. (4) Shock: Code(s): R57.9 - Shock, unspecified Status: Acute Assessment and Plan: Currently afebrile, off Levophed -maintain mean arterial pressures > 65 mm Hg adequate end organ perfusion -continue antibiotics as above -10/21/2021 blood culture negative x2 -10/23/2021 cultures from cholecystostomy drainage bruits -10/24/2021 sputum cultures obtained and grew yeast -continue?vancomycin 10/18, imipenem 10/21, (will does according to dialysis) -micafungin was added 10/25 her cholecystostomy grew yeast -?Levaquin (10/22) - DC Levaquin - 10/26 old biliary stent was removed during EGD Fever curve improved although WBC is still elevated (5) Congestive heart failure: Qualifiers: Heart failure chronicity: acute on chronic Heart failure type: unspecified Qualified Code(s): I50.9 - Heart failure, unspecified Code(s): I50.9 - Heart failure, unspecified Status: Acute Assessment and Plan: 10/18/2021 Echocardiogram:? LV systolic function is 60-65%, LV diastolic function is abnormal, left atrial chamber severely enlarged, mild aortic valve sclerosis, mild? mitral valve regurg, severe pulmonary hypertension with RVSP of 61 mmHg -cardiology following the patient -hold all antihypertensives as patient is on/off? Levophed - continue hemodialysis to remove fluid (6) COPD
[2021-10-27] MEDS: ALBUMIN HUMAN 25% 25 GM/100 ML 100 ML IVPB (09:45)
[2021-10-27] MEDS: HEPARIN SODIUM 1,000 UNITS/ML VIAL 1000 UNITS IV PUSH (09:45)
[2021-10-27] MEDS: SODIUM CHLORIDE 0.9% IV 2,000 ML 999 ML (09:46)
[2021-10-27] MEDS: EPOETIN ALFA-EPBX 20,000 UNITS/ML VIAL 20000 UNITS IV PUSH (09:51)
--- NOTE | 2021-10-27 09:56 | PM.IMPN ---
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 Unable to obtain MRI on vented patients. Most recent EEG 10/25 showing metabolic encephalopathic changes, low suspcion of seizures. Patient is on keppra 500 daily. Neurology following -In regards to metabolic causes, patient is off sedation with only prn ativan pushes prn. No significant gap, BUN 68 with HD planned for today. (2) Cardiac arrest: Code(s): I46.9 - Cardiac arrest, cause unspecified Status: Acute Assessment and Plan: 10/18; Cardiac arrest with CPR and 1 round of epi and vasopressin with ROSC -likely cause of cardiac arrest was respiratory failure, hypoxia -troponins have plateaued, no acute coronary syndrome as a cause of cardiac arrest per Cardiology -status post target temperature management post cardiac arrest -off all sedation, remains encephalopathic (3) Acute respiratory failure: Code(s): J96.00 - Acute respiratory failure, unspecified whether with hypoxia or hypercapnia Status: Acute Assessment and Plan: Acute respiratory failure likely related to pulmonary edema, pneumonia, congestive heart failure pulmonary hypertension -she presented the outside hospital with shortness of breath and hypoxia for few days, patient was being transferred to [facility] in an ambulance which she rested secondary to hypoxic respiratory failure -patient intubated on 10/18/2021 -10/21/2021 CTA CTPA with abdomen and pelvis negative for PE. Pulmonary edema and/or pneumonia noted. Patient on levaquin, micafungin, imipenem/cilastin -CXR 10/27 showing increased vascular congestion. Patient planned for HD today. Previously removed 3 L and tolerated well. (4) Shock: Code(s): R57.9 - Shock, unspecified Status: Acute Assessment and Plan: -blood and urine cx negative. Bile and sputum culture positive for yeast. - white count stable, but elevated. Patient has been afebrile - currently on vancomycin, imipenem/cilastin, levaquin, micafungin -on levophed, maintain MAP > 65 mmHg (5) Congestive heart failure: Qualifiers: Heart failure chronicity: acute on chronic Heart failure type: unspecified Qualified Code(s): I50.9 - Heart failure, unspecified Code(s): I50.9 - Heart failure, unspecified Status: Acute Assessment and Plan: 10/18/2021 Echocardiogram:? LV systolic function is 60-65%, LV diastolic function is abnormal, left atrial chamber severely enlarged, mild aortic valve sclerosis, mild? mitral valve regurg, severe pulmonary hypertension with RVSP of 61 mmHg -cardiology following the patient -hold all antihypertensives as patient is on/off? Levophed - continue hemodialysis to remove fluid (6) COPD (chronic obstructive pulmonary disease): Code(s): J44.9 - Chronic obstructive pulmonary disease, unspecified Status: Acute Assessment and Plan: Continue bronchodilators, antibiotics and mechanical ventilation (7) Pneumonia: Code(s): J18.9 - Pneumonia, unspecified organism Status: Acute Assessment and Plan: Chest x-ray with possible diffuse lung disease on admission -10/21 CTA PE negative for PE but showed diffuse lung disease -antibiotics as above -10/18:? Sputum culture growing normal oropharyngeal jeronimo -MRSA screen is negative -10/24/2021 sputum culture growing budding yeast Antibiotics as above (8) Pulmonary hypertension: Code(s): I27.20 - Pulmonary hypertension, unspecified Status: Acute Assessment and Plan: Echocardiogram showed severe pulmonary hypertension (9) HTN (hypertension): Code(s): I10 - Essential (
[2021-10-27] MEDS: MICAFUNGIN SODIUM 100 MG in SODIUM CHLORIDE 0.9% IV 100 ML IVPB (10:04)
[2021-10-27] MEDS: APIXABAN 5 MG TABLET PO ×2 (10:05→21:42)
[2021-10-27] MEDS: AMIODARONE HCL 200 MG TABLET 400 MG PO ×2 (10:06→21:42)
[2021-10-27] MEDS: ASPIRIN 81 MG ENTERIC TABLET PO (10:07)
[2021-10-27] MEDS: ATORVASTATIN 20 MG TABLET PO (10:07)
[2021-10-27] MEDS: MINERAL OIL/WHITE PETROLATUM OINTMENT 1 APPLIC EACH EYE ×2 (10:07→21:41)
[2021-10-27] MEDS: PANTOPRAZOLE SODIUM IV 40 MG VIAL IV PUSH ×2 (10:08→21:42)
--- NOTE | 2021-10-27 10:55 | PCFNICU ---
ICU Rounding Note: Pt current nutrition is Nepro at 40 ml/hr. Last recorded weight is 104.5 kg, down from 110 kg on admit. Patient had dialysis 10/25. Bowel Motility:+BM reported 10/25 Labs Reviewed:PO4, GFR 8, BUN 68, Cr 5.2,Glu 130, Na 135, Hct 26.2,Hgb 8.0 Meds Noted:Protonix, Lopressor, Keppra, Ativan, Atrovent, Lantus, NovoLog, Lipitor, Eliquis, Pacerone Skin: WNL Additional Notes: Patient remains on mechanical vent. EGD yesterday-no significant findings. Tube feeding restarted of Nepro at 40 ml/hr and tolerating. Free water flush 30 ml q 4 hours. No dialysis yesterday, plans for dialysis today. Agree with tube feedings. Following daily in ICU rounds. Will monitor every Monday and Monday.
[2021-10-27] MEDS: INSULIN GLARGINE (*BKC) 100 UNITS/ML 30 UNITS SUB-Q (10:57)
[2021-10-27 12:38] LABS: Glucose Point of Care 132 mg/dl (65-105)
--- NOTE | 2021-10-27 13:55 | WPDGIPROGNO ---
Progress Note: A&P Assessment and Plan (1) Acute cholecystitis: Code(s): K81.0 - Acute cholecystitis Status: Acute Assessment and Plan: s/p percutaneous cholecystostomy tube, surgery is on the case removed biliary stent (noted large amount of sludge), after removal noted good biliary output through ampulla normal bilirubin will follow from afar (2) Anemia: Code(s): D64.9 - Anemia, unspecified Status: Acute Assessment and Plan: egd yesterday without stigmata of bleeding, no contraindications to start AC if medically indicated she has several other reasons to have anemia such as ESRD on dialysis, sepsis, etc (3) Septic shock: Code(s): A41.9 - Sepsis, unspecified organism; R65.21 - Severe sepsis with septic shock Status: Acute Assessment and Plan: resolved, off pressors on antibiotics (4) Pneumonia: Code(s): J18.9 - Pneumonia, unspecified organism Status: Acute (5) Encephalopathy: Code(s): G93.40 - Encephalopathy, unspecified Status: Acute Assessment and Plan: also with stroke (6) CVA (cerebral vascular accident): Code(s): I63.9 - Cerebral infarction, unspecified Status: Acute Assessment and Plan: CTA reviewed, old infarcts neurology on board (7) Atrial fibrillation: Code(s): I48.91 - Unspecified atrial fibrillation Status: Acute (8) History of biliary duct stent placement: Code(s): Z98.890 - Other specified postprocedural states Status: Chronic (9) Cardiac arrest: Code(s): I46.9 - Cardiac arrest, cause unspecified Status: Acute (10) ESRD (end stage renal disease) on dialysis: Code(s): N18.6 - End stage renal disease; Z99.2 - Dependence on renal dialysis Status: Acute Assessment and Plan: by nephrology Subjective Date/time seen: 10/27/21 13:55 Interval history: egd yesterday without findings to explain anemia, also decided to removed old biliary stent. No new events, she is tolerating tube feeding by NGT Review of Systems Review of Systems: All systems reviewed & are unremarkable except as noted in HPI and below Exam Narrative: General: Intubated and sedated HEENT:? Pupils equal and reactive, sclera is clear, ETT in place Neck:? Supple Respiratory:? Coarse breath sounds bilaterally more at bases, decreased breath sounds at bases, adequate air entry, no wheezing Cardiac:? Currently in sinus rhythm, rate controlled Abdomen:? Soft, nontender, nondistended, hypoactive bowel sounds, obese, incisional hernia drain in right upper quadrant draining brownish bilious drainage Extremities:? trace edema legs Neuro:? Patient is intubated and not on sedation at this time. She withdraws to pain in lower extremities and decerebrate postures on painful stimuli to upper extremities. Skin:? Chronic venous stasis changes on the lower extremities Psych:? Unable to assess Objective Data Vital Signs Vital Signs: Vital Signs - 24 hr 10/26/21 14:32 10/26/21 14:36 10/26/21 14:40 Temperature Pulse Rate 110 H 120 H 117 H Respiratory Rate 25 H 23 H Blood Pressure Pulse Oximetry 98 Oxygen Delivery Mechanical Ventilation Fraction of Inspired Oxygen 30 10/26/21 17:46 10/26/21 17:41 10/26/21 16:00 Temperature Pulse Rate 123 H 122 H Respiratory Rate Blood Pressure Pulse Oximetry 98 Oxygen Delivery Mechanical Ventilation Fraction of Inspired Oxygen 100 100 10/26/21 14:00 10/26/21 16:00 10/26/21 18:00 Temperature Pulse Rate 113 H 109 H 122 H Respiratory Rate Blood Pressure Pulse Oximetry Oxygen Delivery Fraction of Inspired Oxygen 10/26/21 14:00 10/26/21 16:00 10/26/21 18:00 Temperature 98.2 F 98.6 F 98.0 F Pulse Rate 113 H 116 H 122 H Respiratory Rate 25 H 17 27 H Blood Pressure 114/65 98/57 L 138/74 Pulse Oximetry 98 97 77 L Oxygen Delivery Fraction of Inspired Oxygen 10/26/21 16
[2021-10-27] MEDS: ACETAMINOPHEN ELIXIR 325 MG/10.15 ML UDC 650 MG PO (16:11)
[2021-10-27] MEDS: levETIRAcetam 500MG/NACL 100ML 500 MG/100 ML BAG 400 MG IVPB (16:11)
[2021-10-27 16:29] LABS: Glucose Point of Care 205 mg/dl (65-105)
[2021-10-27] MEDS: INSULIN ASPART (*BKC) 100 UNITS/ML SUB-Q (16:59)
[2021-10-27 17:35] LABS: Vancomycin Random 20.6 ug/mL (10-20)
--- NOTE | 2021-10-27 18:58 | PM.PNGS ---
Progress Note: A&P Assessment and Plan (1) Acute cholecystitis: Code(s): K81.0 - Acute cholecystitis Status: Acute Assessment and Plan: Cholecystostomy tube draining well. Continue to monitor output. Bile culture showed growth of yeast. Continue IV micafungin and IV antibiotics. (2) History of biliary duct stent placement: Code(s): Z98.890 - Other specified postprocedural states Status: Chronic Assessment and Plan: The patient had a biliary stent placed about 5 years ago and has now had this removed in EGD yesterday. Stent appeared occluded with sludge. Will monitor cholecystostomy tube output, because this may start diminishing if the bile is now able to drain better through the common bile duct. Possible that she had ascending cholangitis related to this issue that lead to her sepsis. Continue current medical management. (3) Acute respiratory failure: Code(s): J96.00 - Acute respiratory failure, unspecified whether with hypoxia or hypercapnia Status: Acute Assessment and Plan: Management per Stock Preparation Operator, remains intubated and is unresponsive off sedation. (4) ESRD (end stage renal disease) on dialysis: Code(s): N18.6 - End stage renal disease; Z99.2 - Dependence on renal dialysis Status: Acute Assessment and Plan: Nephrology following and managing hemodialysis. (5) Septic shock: Code(s): A41.9 - Sepsis, unspecified organism; R65.21 - Severe sepsis with septic shock Status: Acute (6) Encephalopathy: Code(s): G93.40 - Encephalopathy, unspecified Status: Acute Plan I have discussed the patient's case and plan of care with Dr. Rodriguez. Subjective Subjective Date/Time Seen: 10/27/21 12:58 Interval history: Patient intubated and sedated in the ICU. The hemodialysis nurse is in the room doing dialysis when rounding today. Family is also at the bedside. Review of Systems Review of Systems: ROS unobtainable: Yes unobtainable due to endotracheal tube Exam Const: General: ill appearing and patient obtunded Orientation/consciousness: Other orientation findings (unresponsive with no sedation) GI: Inspection: non-distended, obesity and other (cholecystostomy tube with bilious output in bag) GI Palp: Yes Soft to palpation Auscultation: Hypoactive bowel sounds present Neuro: General: patient obtunded Psych: Mental Status: other ( sedated on mechanical ventilator) Objective Data Vital Signs Vital Signs: Vital Signs - 24 hr 10/26/21 19:40 10/26/21 19:58 10/26/21 19:58 Temperature Pulse Rate 112 H 119 H 126 H Respiratory Rate 16 18 Blood Pressure Pulse Oximetry 98 Oxygen Delivery Mechanical Ventilation Fraction of Inspired Oxygen 30 10/26/21 20:43 10/26/21 22:30 10/26/21 20:00 Temperature Pulse Rate 127 H 110 H 124 H Respiratory Rate Blood Pressure Pulse Oximetry 96 Oxygen Delivery Mechanical Ventilation Fraction of Inspired Oxygen 30 10/26/21 20:00 10/26/21 20:00 10/26/21 20:00 Temperature 99 F Pulse Rate 124 H 124 H Respiratory Rate 26 H 26 H Blood Pressure 92/69 L Pulse Oximetry 98 98 Oxygen Delivery Mechanical Ventilation Fraction of Inspired Oxygen 30 30 10/26/21 22:00 10/26/21 22:00 10/27/21 00:00 Temperature Pulse Rate 113 H 113 H 105 H Respiratory Rate 16 Blood Pressure 99/56 L Pulse Oximetry 96 Oxygen Delivery Fraction of Inspired Oxygen 10/27/21 00:00 10/27/21 00:00 10/27/21 00:00 Temperature 99.6 F Pulse Rate 105 H 105 H Respiratory Rate 16 16 Blood Pressure 106/60 Pulse Oximetry 89 L 89 L Oxygen Delivery Mechanical Ventilation Fraction of Inspired Oxygen 30 30 10/27/21 00:04 10/27/21 01:30 10/27/21 01:31 Temperature Pulse Rate 113 H 107 H 111 H Respiratory Rate 16 Blood Pressure Pulse Oximetry 100 Oxygen Delivery Mechanical Ventilation Fraction of Inspired Oxygen 30 10/27/21
[2021-10-27 20:06] LABS: Glucose Point of Care 147 mg/dl (65-105)
[2021-10-28] VITALS (19 sets, daily range): BP systolic 95–124; BP diastolic 56–73; PULSE 97–123; RESP 13–25; TEMP 37.3–37.7; O2SAT 93–100
[2021-10-28 00:15] LABS: Glucose Point of Care 132 mg/dl (65-105)
[2021-10-28] MEDS: ALBUTEROL SULFATE NEB 2.5 MG/3 ML INH INHALATION ×2 (02:34→08:59)
[2021-10-28] MEDS: IPRATROPIUM BR 0.02% INH SOLN 0.5 MG/2.5 ML VIAL INHALATION ×2 (02:35→08:59)
[2021-10-28 05:18] LABS: Alveolar/Arterial O2 Gradient 89.1 mmHg; Base Excess ABG 4.8 mEq/l (+/-2.0); Carboxyhemoglobin 0.3 % THb (0-2.0); Fractional Inspired Oxygen 30 %; HCO3 ABG 28.7 mEq/l (22.0-26.0); Methemoglobin ABG 0.1 %THb (0-1.5); Oxygen Content ABG 12.4 %vol (16.0-22.0); Oxygen Saturation ABG 96.3 % (95.0-100.0); Oxyhemoglobin 94.4 % THb (90.0-100.0); PCO2 ABG 39.8 mmHg (35.0-45.0); Reduced Hemoglobin 5.2 %THb (0-5.0); Total Hemoglobin 9.3 g/dL (12.0-18.0); pH ABG 7.476 (7.350-7.450)
[2021-10-28 05:19] LABS: Device VENTILATOR; Modified Allen's Test Pass; Site Drawn RIGHT BRACHIAL
[2021-10-28 05:20] LABS: Arterial Blood Gas PEEP 5 cmH2O; Arterial Blood Gas Tidal Volume 360 ml; Arterial Blood Gas Vent Mode CMV; Arterial Blood Gas Ventilator rate 16 /MIN
[2021-10-28] MEDS: METOPROLOL TARTRATE 25 MG TABLET PO (05:39)
[2021-10-28] MEDS: CENTRAL LINE FLUSH 10 ML IV PUSH ×2 (05:39→16:34)
[2021-10-28 05:58] LABS: Glucose Point of Care 184 mg/dl (65-105)
[2021-10-28 06:01] LABS: Basophils Absolute Auto 0.1 K/mm3 (0.0-0.1); Basophils Percent Auto 0.5 % (0.2-1.2); Eosinophils Absolute Auto 0.1 K/mm3 (0-0.3); Eosinophils Percent Auto 0.8 % (0-4.4); Hematocrit 28.3 % (37.0-47.0); Hemoglobin 8.4 g/dL (12.0-15.0); Immature Granulocyte Absolute 0.13 K/mm3 (0.00-0.031); Immature Granulocyte Percent A 0.8 % (0-0.5); Lymphocytes Absolute Auto 1.33 K/mm3 (0.9-3.2); Lymphocytes Percent Auto 8.4 % (18.3-44.2); Mean Corpuscular HGB Conc 29.7 g/dl (32-36); Mean Corpuscular Hemoglobin 32.3 pg (26-34); Mean Corpuscular Volume 108.8 fl (80-100); Mean Platelet Volume 9.8 fl (7.4-10.4); Monocytes Absolute Auto 1.5 K/mm3 (0.1-0.6); Monocytes Percent Auto 9.3 % (2.6-8.5); Neutrophils Absolute Auto 12.7 K/mm3 (1.3-6.7); Neutrophils Percent Auto 80.2 % (45.5-73.1); Nucleated Red Blood Cells Absolute Auto 0.1 K/mm3 (0.0-0.012); Nucleated Red Blood Cells Perc 0.9 % (0.0-0.2); Platelet Count Result 336 k/mm3 (150-375); White Blood Count 15.9 K/mm3 (4.5-10.0)
[2021-10-28 06:23] LABS: Alanine Aminotransferase 36 U/L (6-35); Alkaline Phosphatase 90 U/L (38-126); Anion Gap 14 mmol/L (8-16); Aspartate Amino Transferase 46 U/L (14-36); Bilirubin,Total 0.8 mg/dL (0.2-1.3); Blood Urea Nitrogen 46 mg/dL (7-17); Calcium 9.7 mg/dL (8.4-10.2); Carbon Dioxide 33 mmol/L (22-30); Chloride 92 mmol/L (98-107); Estimated CRCL calculation 15 ml/min; Estimated Glomerular Filt Rate 12; Glucose 174 mg/dL (65-110); Magnesium 2.2 mg/dL (1.6-2.3); Phosphorus 5.1 mg/dL (2.5-4.5); Potassium 3.6 mmol/L (3.4-5.0); Sodium 139 mmol/L (137-145)
[2021-10-28 07:25] LABS: Glucose Point of Care 171 mg/dl (65-105)
[2021-10-28 07:33] LABS: Anisocytosis 1+ (NORMAL); Platelet Estimate Adequate (Adequate)
--- NOTE | 2021-10-28 07:54 | PM.PNCARD ---
Progress Note: A&P Assessment and Plan (1) Shock: Code(s): R57.9 - Shock, unspecified Status: Acute Assessment and Plan: Resolved off Levophed drip. Likely due to respiratory failure from pneumonia. Was on Levophed but no longer requiring it. 10/18/21 Echo: EF 60-65%, mild LVH, diastolic dysfunction with E/e' 33, severe LAE, mod MAC and mitral valve calcifications, mild MR, trace TR/PI, severe pulm hypertension with RVSP 61 mmHg. (2) Acute respiratory failure: Code(s): J96.00 - Acute respiratory failure, unspecified whether with hypoxia or hypercapnia Status: Acute Assessment and Plan: Ventilator managed by packer inspector. (3) Pneumonia: Code(s): J18.9 - Pneumonia, unspecified organism Status: Acute Assessment and Plan: On antibiotics per hospitalist. (4) HTN (hypertension): Code(s): I10 - Essential (primary) hypertension Status: Acute Assessment and Plan: Stable but off her home BP medications. Resume when BP starts to go up starting with Carvedilol or Metoprolol, Olmesartan then Amlodipine in that order. (5) HLD (hyperlipidemia): Code(s): E78.5 - Hyperlipidemia, unspecified Status: Acute Assessment and Plan: On Atorvastatin. (6) Diastolic dysfunction: Code(s): I51.89 - Other ill-defined heart diseases Status: Acute Assessment and Plan: Fluid level controlled with HD. (7) ESRD (end stage renal disease) on dialysis: Code(s): N18.6 - End stage renal disease; Z99.2 - Dependence on renal dialysis Status: Acute Assessment and Plan: Fluid level controlled with HD. (8) Atrial fibrillation: Code(s): I48.91 - Unspecified atrial fibrillation Status: Acute Assessment and Plan: Back in atrial fibrillation. New onset on 10/19/21, then had atrial tachycardia/flutter on 10/20/21. Probably due to respiratory status. [id number] 5. If no contraindication will start her on anticoagulation with Eliquis 5 mg BID (for weight >60kg and age<80). Decreased aspirin 81 mg daily. Resumed Amiodarone drip and restored sinus rhythm. On Amiodarone 200 mg PO every 12 hours. If continues to be in atrial fib, consider Amiodarone drip to restore sinus rhythm. Eliquis on hold due to positive hemoccult and worsening anemia. Discuss with Dr. Puente, holding off on heparin drip due to significant anemia and positive hemccolt. Plan on endoscopy today. Increased Metoprolol Tartate 25 mg PO every 6 hours with parameters for rate control. Increased Amiodarone 400 mg every 12 hours to attempt to restore sinus rhythm. Started Eliquis 5 mg PO BID as cleared by GI. Subjective Date/time seen: 10/28/21 07:54 Off sedation, not waking up, on ventilator. Exam Const: Other: Not waking up on ventilator Resp: Auscultation: no crackles, no rales, no rhonchi, no wheezes and diminished lung sounds Cardio: Jugular venous distension: no JVD Rate: tachycardic Rhythm: abnormal rhythm Heart sounds: no murmurs Peripheral pulses: dorsalis pedis present GI: GI Palp: No abdominal tenderness and Yes Soft to palpation Extrem: Right lower extremity: no edema Left lower extremity: no edema Objective Data Vital Signs Vital Signs: Vital Signs - 24 hr 10/27/21 08:28 10/27/21 08:34 10/27/21 08:39 Temperature Pulse Rate 125 H 117 H 116 H Respiratory Rate 20 16 Blood Pressure Pulse Oximetry 97 Oxygen Delivery Mechanical Ventilation Fraction of Inspired Oxygen 30 10/27/21 10:00 10/27/21 10:06 10/27/21 10:00 Temperature 99.6 F Pulse Rate 127 H 116 H Respiratory Rate 19 Blood Pressure 127/70 Pulse Oximetry 98 Oxygen Delivery Mechanical Ventilation Fraction of Inspired Oxygen 30 10/27/21 11:38 10/27/21 11:45 10/27/21 09:30 Temperature Pulse Rate 131 H 125 H 112 H Respiratory Rate Blood Pressure 136/84 127/85 Pulse Oximetry 99 Oxygen Delivery Mechanical Ventilation [facility]
--- NOTE | 2021-10-28 09:34 | WPDINTPN ---
Progress Note: A&P Assessment and Plan (1) Encephalopathy: Code(s): G93.40 - Encephalopathy, unspecified Status: Acute Assessment and Plan: Encephalopathy could be multifactorial, cardiac arrest, anoxic injury, metabolic causes, CVA -10/21 EEG showed diffuse slowing with triphasic waves may be seen in setting of metabolic encephalopathy, there were no epileptiform discharges. -neurology following the patient - 10/25 repeat EEG:Abnormal record due to absence of normal background rhythm and presence of bihemispheric slow activity admixed with a triphasic waves.? Previous tracing no significant changes noted.? These abnormalities are suggestive of underlying organic a metabolic encephalopathy again clinical correlation recommended No significant or meaningful change in patient neurological status over last few days -continue Keppra -continue to hold sedation -unable to obtain MRI on a vented patient add [facility] -continue hemodialysis (2) Cardiac arrest: Code(s): I46.9 - Cardiac arrest, cause unspecified Status: Acute Assessment and Plan: 10/18; Cardiac arrest with CPR and 1 round of epi and vasopressin with ROSC -likely cause of cardiac arrest was respiratory failure, hypoxia -troponins have plateaued, no acute coronary syndrome as a cause of cardiac arrest per Cardiology -status post target temperature management post cardiac arrest -off all sedation, remains encephalopathic (3) Acute respiratory failure: Code(s): J96.00 - Acute respiratory failure, unspecified whether with hypoxia or hypercapnia Status: Acute Assessment and Plan: Acute respiratory failure likely related to pulmonary edema, pneumonia, congestive heart failure pulmonary hypertension -she presented the outside hospital with shortness of breath and hypoxia for few days, patient was being transferred to [facility] in an ambulance which she rested secondary to hypoxic respiratory failure -?patient intubated on 10/18/2021 -chest x-ray reviewed -ABGs reviewed-decrease tidal volume to 360, continue PEEP to 8, currently on 40% FiO2 Weaning will depend on neurological recovery. Will try ASV mode at 100% minute ventilation 10/21/2021 CTA chest PE protocol along with abdominal and pelvis 1. No pulmonary embolus identified, sensitivity limited by respiratory motion artifact. 2. Diffuse lung disease, consistent with pulmonary edema and/or pneumonia. 3. Gallbladder distention and chronic wall thickening of the gallbladder which could reflect acute versus chronic cholecystitis. 4. Indeterminate left kidney mass which may be benign or malignant, nonemergent follow-up is recommended. (4) Shock: Code(s): R57.9 - Shock, unspecified Status: Acute Assessment and Plan: Currently afebrile, off Levophed -maintain mean arterial pressures > 65 mm Hg adequate end organ perfusion -continue antibiotics as above -10/21/2021 blood culture negative x2 -10/23/2021 cultures from cholecystostomy drainage bruits -10/24/2021 sputum cultures obtained and grew yeast -continue?vancomycin 10/18 -will complete a 10 day course today -continue imipenem 10/21, (will does according to dialysis) -micafungin was added 10/25 her cholecystostomy grew yeast -?Levaquin (10/22) - DC Levaquin - 10/26 old biliary stent was removed during EGD Fever curve improved although WBC is still elevated (5) Congestive heart failure: Qualifiers: Heart failure chronicity: acute on chronic Heart failure type: unspecified Qualified Code(s): I50.9 - Heart failure, unspecified Code(s): I50.9 - Heart failure, unspecified Status: Acute Assessment and Plan: 10/18/2021 Echocardiogram:? LV systolic function is 60-65%, LV diastolic function is abnormal, left atrial chamber severely enlarged, mild aortic valve sclerosis, mild? mitral valve regurg, severe pulmonary hypertension with RVSP of 61 mmHg -cardiology following the patient -
[2021-10-28] MEDS: PANTOPRAZOLE SODIUM IV 40 MG VIAL IV PUSH (09:47)
[2021-10-28] MEDS: MINERAL OIL/WHITE PETROLATUM OINTMENT 1 APPLIC EACH EYE (09:47)
[2021-10-28] MEDS: AMIODARONE HCL 200 MG TABLET 400 MG PO (09:47)
[2021-10-28] MEDS: APIXABAN 5 MG TABLET PO (09:47)
[2021-10-28] MEDS: ASPIRIN 81 MG ENTERIC TABLET PO (09:48)
[2021-10-28] MEDS: ATORVASTATIN 20 MG TABLET PO (09:48)
[2021-10-28] MEDS: INSULIN GLARGINE (*BKC) 100 UNITS/ML 30 UNITS SUB-Q (09:55)
[2021-10-28] MEDS: POTASSIUM CHLORIDE 20 MEQ PACKET (FOR LIQUID) 40 MEQ FEED TUBE (09:55)
[2021-10-28] MEDS: MICAFUNGIN SODIUM 100 MG in SODIUM CHLORIDE 0.9% IV 100 ML IVPB (09:55)
[2021-10-28] MEDS: levETIRAcetam 500MG/NACL 100ML 500 MG/100 ML BAG 400 MG IVPB (10:08)
--- NOTE | 2021-10-28 11:26 | PCFNICU ---
ICU Rounding Note: Pt current nutrition is Nepro at 40 ml/hr. Last recorded weight is 102.4 kg, down from 110 kg. Dialysis 10/27. Bowel Motility: +Bm reported 10/28 Labs Reviewed:PO4 5.1, GFR 12, BUN 46, Cr 3.7,Glu 174, Hgb 8.4,Hct 28.3 Meds Noted:Reglan,Protonix, Lopressor, Keppra, Ativan, Atrovent, Lantus, NovoLog, Lipitor, Eliquis, Pacerone Skin: WNL Additional Notes: Patient remains on mechanical vent. Tube feeding restarted with Nepro at 40 ml/hr and tolerating at this time. Free water flush 30 ml q 4 hours. Dialysis yesterday, 2.5 L removed. Agree with diet orders. Following daily in ICU rounds. Will monitor every Monday and Monday.
--- NOTE | 2021-10-28 11:52 | PM.EVENT ---
Event Note Event Note Event Note: Family Meeting I met with patient's daughter and mother at bedside to discuss medical decisions and level of care. I updated them with patient's current condition, treatment plan, expected prognosis and different potential outcomes. Explained that the patient has not made any meaningful neurological improvement over last few days. We discussed her current neurological status. Today is day 11 of her being on mechanical ventilation. Due to lack of progress and improvement the family has decided that they do not think the patient would want to continue on a ventilator and artificial life support like this. They are considering comfort measures and are going to discuss with other family members on best time to proceed. Daughter states that her mother would never want to live in this condition. At this time they have decided, in accordance with patient's wishes, to continue medical therapy but do not resuscitate pt in case of cardiac arrest. I have made pt DNR in chart. Once they have discussed with the family members they will make a decision on when to proceed with comfort measures.
--- NOTE | 2021-10-28 11:57 | PM.IMPN ---
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 Unable to obtain MRI on vented patients. Most recent EEG 10/25 showing metabolic encephalopathic changes, low suspcion of seizures. Patient is on keppra 500 daily. Neurology following -In regards to metabolic causes, patient is off sedation with only prn ativan pushes prn. No significant gap, BUN 68 with HD planned for today. (2) Cardiac arrest: Code(s): I46.9 - Cardiac arrest, cause unspecified Status: Acute Assessment and Plan: 10/18; Cardiac arrest with CPR and 1 round of epi and vasopressin with ROSC -likely cause of cardiac arrest was respiratory failure, hypoxia -troponins have plateaued, no acute coronary syndrome as a cause of cardiac arrest per Cardiology -status post target temperature management post cardiac arrest -off all sedation, remains encephalopathic (3) Acute respiratory failure: Code(s): J96.00 - Acute respiratory failure, unspecified whether with hypoxia or hypercapnia Status: Acute Assessment and Plan: Acute respiratory failure likely related to pulmonary edema, pneumonia, congestive heart failure pulmonary hypertension -she presented the outside hospital with shortness of breath and hypoxia for few days, patient was being transferred to [facility] in an ambulance which she rested secondary to hypoxic respiratory failure -patient intubated on 10/18/2021 -10/21/2021 CTA CTPA with abdomen and pelvis negative for PE. Pulmonary edema and/or pneumonia noted. Patient on micafungin, imipenem/cilastin for four more days as of 10/28 -CXR 10/28 shows improvement in vascular congestion. 2.5 L fluid removed via HD 10/27 (4) Shock: Code(s): R57.9 - Shock, unspecified Status: Acute Assessment and Plan: -blood and urine cx negative. Bile and sputum culture positive for yeast. - white count stable, but elevated. Patient has been afebrile - currently on vancomycin, imipenem/cilastin, levaquin, micafungin -on levophed, maintain MAP > 65 mmHg (5) Congestive heart failure: Qualifiers: Heart failure chronicity: acute on chronic Heart failure type: unspecified Qualified Code(s): I50.9 - Heart failure, unspecified Code(s): I50.9 - Heart failure, unspecified Status: Acute Assessment and Plan: 10/18/2021 Echocardiogram:? LV systolic function is 60-65%, LV diastolic function is abnormal, left atrial chamber severely enlarged, mild aortic valve sclerosis, mild? mitral valve regurg, severe pulmonary hypertension with RVSP of 61 mmHg -cardiology following the patient -hold all antihypertensives as patient is on/off? Levophed -continue hemodialysis to remove fluid (6) COPD (chronic obstructive pulmonary disease): Code(s): J44.9 - Chronic obstructive pulmonary disease, unspecified Status: Acute Assessment and Plan: Continue bronchodilators, antibiotics and mechanical ventilation (7) Pneumonia: Code(s): J18.9 - Pneumonia, unspecified organism Status: Acute Assessment and Plan: Chest x-ray with possible diffuse lung disease on admission -10/21 CTA PE negative for PE but showed diffuse lung disease -antibiotics as above -10/18:? Sputum culture growing normal oropharyngeal jeronimo -MRSA screen is negative -10/24/2021 sputum culture growing budding yeast Antibiotics as above (8) Pulmonary hypertension: Code(s): I27.20 - Pulmonary hypertension, unspecified Status: Acute Assessment and Plan: Echocardiogram showed severe pulmonary hypertension (9) HTN (hypertension): Code(s): I10 - Essential (primary) hypertension
[2021-10-28 13:03] LABS: Glucose Point of Care 184 mg/dl (65-105)
--- NOTE | 2021-10-28 13:26 | PM.PNGS ---
Progress Note: A&P Assessment and Plan (1) Acute cholecystitis: Code(s): K81.0 - Acute cholecystitis Status: Acute Assessment and Plan: Cholecystostomy tube draining well. Continue to monitor output. Bile culture showed growth of yeast. Continue IV micafungin and IV antibiotics. Will watch for amount of output. 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 Therefore if getting greater than a 1000 cc of bile out per 24 hours may need to consider a cholangiogram through the current existing catheter within the gallbladder. (2) History of biliary duct stent placement: Code(s): Z98.890 - Other specified postprocedural states Status: Chronic Assessment and Plan: The patient had a biliary stent placed about 5 years ago and has now had this removed in EGD on 10/26. Stent appeared occluded with sludge. Will monitor cholecystostomy tube output, because this may start diminishing if the bile is now able to drain better through the common bile duct. Possible that she had ascending cholangitis related to this issue that lead to her sepsis. Continue current medical management. If however, it starts to increase or stayed above 500 cc per day we may need to consider a cholangiogram through the currently existing cholecystostomy tube to rule out stricture of the distal common bile duct. Certainly if family wishes to move to comfort care this is something that we can hold off on or avoid toe completely. (3) Acute respiratory failure: Code(s): J96.00 - Acute respiratory failure, unspecified whether with hypoxia or hypercapnia Status: Acute Assessment and Plan: Management per Patroller, remains intubated and is unresponsive off sedation. (4) ESRD (end stage renal disease) on dialysis: Code(s): N18.6 - End stage renal disease; Z99.2 - Dependence on renal dialysis Status: Acute Assessment and Plan: Nephrology following and managing hemodialysis. (5) Septic shock: Code(s): A41.9 - Sepsis, unspecified organism; R65.21 - Severe sepsis with septic shock Status: Acute Assessment and Plan: Seems to be improving however patient may have suffered brain injury. (6) Encephalopathy: Code(s): G93.40 - Encephalopathy, unspecified Status: Acute Assessment and Plan: As per finishing room supervisor and IM notes. Plan I have discussed the patient's case and plan of care with Dr. Bass. Subjective Subjective Date/Time Seen: 10/28/21 08:26 Post Op day: 5 ( status post cholecystostomy tube placement) Review of Systems Review of Systems: ROS unobtainable: Yes unobtainable due to endotracheal tube, unobtainable due to medical condition and unobtainable due to mental status Exam Const: General: ill appearing and patient obtunded Orientation/consciousness: Other orientation findings (unresponsive with no sedation) GI: Inspection: non-distended, obesity and other (cholecystostomy tube with bilious output in bag) GI Palp: Yes Soft to palpation Auscultation: Hypoactive bowel sounds present Neuro: General: patient obtunded Psych: Mental Status: other ( sedated on mechanical ventilator) Objective Data Vital Signs Vital Signs: Vital Signs - 24 hr 10/27/21 14:46 10/27/21 14:51 10/27/21 14:00 Temperature Pulse Rate 117 H 119 H 122 H Respiratory Rate 16 Blood Pressure Pulse Oximetry 100 Oxygen Delivery Mechanical Ventilation Fraction of Inspired Oxygen 30 10/27/21 14:00 10/27/21 16:00 10/27/21 16:11 Temperature 37.7 C H 38.1 C H 38.1 C H Pulse Rate 125 H 124 H Respiratory Rate 20 20 Blood Pressure 102/71 101/57 L Pulse Oximetry 99 96 Oxygen Delivery Fraction of Inspired Oxygen 10/27/21 16:12 10/27/21 17:00 10/27/21 17:04 Temperature Pulse Rate 124 H 130 H 116 H Respiratory Rate Blood Pressure Pulse Oximetry 92 Oxygen Deliv
--- NOTE | 2021-10-28 16:35 | PC.NURSE ---
Patient's family present. Daughter, Lexy Pena has decided the comfort measures is the best option for this patient related to the patient's status. [employer] Manager notified. New orders received.
[2021-10-28] MEDS: MORPHINE SULFATE INJ (*CRX) 10 MG/ML AMP 5 MG IV PUSH (16:54)
[2021-10-28] MEDS: LORazepam INJ (*CRX) 2 MG/ML VIAL IV PUSH ×3 (16:55→18:56)
[2021-10-28] MEDS: MORPHINE SULFATE (*CRX) 2 MG/ML INJ 4 MG IV PUSH ×2 (17:51→18:56)
[2021-10-28] MEDS: ATROPINE SULFATE 1% OPHTH SOLN 5 ML BOTTLE SUBLINGUAL (19:06)
--- NOTE | 2021-11-22 16:37 | PM.DDS ---
Discharge Summary Date and Time Date of : 10/28/21 Time of : 19:45 Provider Pronounced By: Rosey Mace Probable Cause of Probable Cause of : Septic Shock Summary Hospital Course: 71 yo F who presented to [facility] as a cardiac arrest. Work up remarkable for septic shock secondary to cholecystitis. Patient had completed 24 hours target temperature management. Patient was started on broad spectrum antibiotics, and was treated for cholecystitis as well as pneumonia throughout her course. Patient eventually had cholecystostomy tube placed. Fluid from drain positive for yeast and patient was started on micafungin. Patient had EGD during her admission due to acute anemia. No stigmata of bleeding was noted, however patient was found to have and old biliary stent placed 5 years prior with sludging. This stent was removed. Unfortunately, due to patient's lack of improvement in mental status despite aggressive efforts to treat, family elected to withdraw care on 10/28 and patient that day. Additional Data Confirmation of as documented by pronouncing clinician: Pupillary Reflex, Palpable Pulses, Response to Stimuli, Heart Tones and Breath Sounds Name of Provider Notified: Dr. Bass, Dr. Lei Time Provider Notified: 20:10 Provider Requests Autopsy: No Family Requests Autopsy: No Loss Prevention Coordinator Notified: Yes Date [facility] Notified of : 10/28/21 Time [facility] Notified of : 20:10
== END 2021-10-28 22:00 | disposition expired | DRG 870 ==
PROVIDERS: Internal Medicine; Internal Medicine Gastroenterology; Internal Medicine Nephrology; Admitting Provider Chiropractor; PCP Nurse Practitioner Family; Visit Provider Internal Medicine
PROC: 0DJ08ZZ Inspection of Upper Intestinal Tract, Via Natural or Artificial Opening Endoscopic (ICD-10-PCS; CPT 43235; principal; 2021-10-26 11:45)
DX: A41.9 Sepsis, unspecified organism (principal); R65.21 Severe sepsis with septic shock; J18.9 Pneumonia, unspecified organism; J96.01 Acute respiratory failure with hypoxia; N18.6 End stage renal disease; I63.9 Cerebral infarction, unspecified; G93.41 Metabolic encephalopathy; K81.0 Acute cholecystitis; I13.2 Hypertensive heart and chronic kidney disease with heart failure and with stage 5 chronic kidney disease, or end stage renal disease; I50.42 Chronic combined systolic (congestive) and diastolic (congestive) heart failure; J44.0 Chronic obstructive pulmonary disease with (acute) lower respiratory infection; J91.8 Pleural effusion in other conditions classified elsewhere; B37.89 Other sites of candidiasis; R57.0 Cardiogenic shock; E11.22 Type 2 diabetes mellitus with diabetic chronic kidney disease; I46.8 Cardiac arrest due to other underlying condition; I44.7 Left bundle-branch block, unspecified; K81.1 Chronic cholecystitis; Z20.822 Contact with and (suspected) exposure to COVID-19; M19.90 Unspecified osteoarthritis, unspecified site; E87.5 Hyperkalemia; K58.9 Irritable bowel syndrome, unspecified; E04.2 Nontoxic multinodular goiter; D63.1 Anemia in chronic kidney disease; E11.65 Type 2 diabetes mellitus with hyperglycemia; E78.5 Hyperlipidemia, unspecified; I48.0 Paroxysmal atrial fibrillation; E11.42 Type 2 diabetes mellitus with diabetic polyneuropathy; Z99.2 Dependence on renal dialysis; Z99.81 Dependence on supplemental oxygen; Z86.718 Personal history of other venous thrombosis and embolism; Z90.710 Acquired absence of both cervix and uterus; Z79.82 Long term (current) use of aspirin; Z86.711 Personal history of pulmonary embolism; Z79.4 Long term (current) use of insulin; Z98.890 Other specified postprocedural states; Z66 Do not resuscitate
CPT/HCPCS: 36415; 36600; 47490; 70450; 70496; 70498; 71045; 71275; 74177; 80053; 80202; 82140; 82274; 82375; 82607; 82746; 82805; 82948; 83010; 83050; 83540; 83550; 83605; 83615; 83735; 84100; 84443; 84484; 85025; 85027; 85046; 85610; 85730; 86705; 87040; 87070; 87075; 87081; 87086; 87106; 87186; 87205; 87340; 93005; 93306; 93922; 94002; 94003; 94640; 95816; A9270; C1729; C9113; C9803; G0257; J0131; J0171; J0282; J0743; J1644; J1650; J1815; J1953; J1956; J2060; J2248; J2270; J2543; J2704; J2765; J2997; J3370; J7030; P9047; Q5105; Q9967; U0003; U0005